=== PATIENT | female | born 1935 | race Two or more races ===

== ENCOUNTER 2016-11-18 19:30 | Inpatient (IN) | payer MEDICAID ==
[~2016-11-18] VITALS: Ht 167.6 cm; Wt 65.8 kg
[~2016-11-18 19:30] MED LIST: ASPIR 8181 MG ORAL; ATORVASTATIN CA20 MG ORAL; DONEPEZIL HCL5 M2 ORAL; GLIMEPIRIDE4 MG ORAL; Ketorolac 30mg Inj IV PRN; LASIX20 M1 ORAL; LOSARTAN POTASS25 MG ORAL; MEGESTROL ACETA20 MG ORAL; METFORMIN HCL1000 M1 ORAL; NAMENDA10 MG ORAL; PANTOPRAZOLE SO40 MG ORAL; PAXIL10 MG ORAL; PLAVIX75 MG ORAL; PRAVASTATIN SOD20 M1 ORAL; VITAMIN D-40400 UNIT ORAL; ZOLPIDEM TARTRA10 MG ORAL
[2016-11-18 21:07] LABS: BASOPHILS % (AUTO) 0.7 % (0.0-2.0); EOSINOPHILS % (AUTO) 0.9 % (0.0-3.0); MEAN CORPUSCULAR HEMOGLOBIN 29.1 PG (27.0-31.0); MEAN CORPUSCULAR HGB CONC 32.4 G/DL (32.0-36.0); MEAN CORPUSCULAR VOLUME 90 FL (80-99); MEAN PLATELET VOLUME 8.9 FL (6.5-10.1); NEUTROPHILS % (AUTO) 76.4 % (45.0-75.0); PLATELET COUNT 154 K/UL (150-450); RED BLOOD COUNT 5.36 M/UL (4.20-5.40); RED CELL DISTRIBUTION WIDTH 13.1 % (11.6-14.8); WHITE BLOOD COUNT 9.9 K/UL (4.8-10.8)
[2016-11-18 21:10] VITALS: BP 105/72
--- NOTE | 2016-11-18 21:25 | Emergency Room Report ---
History of Present Illness General Chief Complaint: Altered Level of Consciousness Source: Patient, Family Member Present Illness HPI Patient is a 81-year-old female presents emergency department today with acute altered mental status. Patient over last few days has been feeling weak with a headache and was by her further evaluation. Patient apparently has also been elevated. History is limited as patient appears be very weak and lethargic. Symptoms are noted to be highly severe.No other modifying factors. No other associated signs and symptoms. No other complaints were noted. Allergies: Coded Allergies: No Known Allergies (Unverified , 08/13/14) UNABLE TO ASSESS (Unverified , 11/18/16) Patient History Past Medical History: DM, HTN Past Surgical History: none Pertinent Family History: none Social History: Denies: alcohol use, drug use, smoking Last Menstrual Period: n/a Reviewed Nursing Documentation: PMH: Agreed, PSxH: Agreed Nursing Documentation-PMH Past Medical History: No History, Except For Hx Cardiac Problems: Yes - hyperlipidemia Hx Hypertension: Yes Hx Diabetes: Yes Hx Cancer: No Hx Gastrointestinal Problems: Yes Hx Cerebrovascular Accident: Yes - 3-4 years ago Hx Alzheimer's Disease: Yes - since 2011 Hx Weakness: Yes Review of Systems All Other Systems: negative except mentioned in HPI Physical Exam Vital Signs Date Time Temp Pulse Resp B/P Pulse Ox O2 Delivery O2 Flow Rate FiO2 11/18/16 19:20 87 16 114/72 97 Sp02 EP Interpretation: reviewed, normal General Appearance: alert, moderate distress Head: atraumatic Eyes: bilateral eye normal inspection ENT: dry mucus membranes Neck: normal inspection, full range of motion, supple, no bony tend Respiratory: normal inspection, lungs clear, normal breath sounds, no respiratory distress, no retraction, no wheezing Cardiovascular #1: regular rate, rhythm, no edema Gastrointestinal: normal inspection, normal bowel sounds, non tender, soft, no guarding, no hernia Genitourinary: no CVA tenderness Musculoskeletal: normal inspection, back normal, normal range of motion Neurologic: normal inspection, alert, responsive, speech normal Psychiatric: depressed affect, anxious Skin: normal inspection, normal color, no rash Medical Decision Making Diagnostic Impression: Primary Impression: Altered level of consciousness ER Course Patient presents emergency department today with acute altered mental status. Differential diagnoses include infectious process electrolyte abnormality CVA just name a few.Given the severity of the patient's presentation I felt this is a highly complex patient. This patient required extensive workup.Patient will likely require admission to the hospital. Admitting hospitalist is Dr. French. Case is discussed with Dr. French for admission evaluation of altered mental status. Labs Test 11/18/16 20:50 White Blood Count 9.9 K/UL (4.8-10.8) Red Blood Count 5.36 M/UL (4.20-5.40) Hemoglobin 15.6 G/DL (12.0-16.0) Hematocrit 48.2 % (37.0-47.0) Mean Corpuscular Volume 90 FL (80-99) Mean Corpuscular Hemoglobin 29.1 PG (27.0-31.0) Mean Corpuscular Hemoglobin Concent 32.4 G/DL (32.0-36.0) Red Cell Distribution Width 13.1 % (11.6-14.8) Platelet Count 154 K/UL (150-450) Mean Platelet Volume 8.9 FL (6.5-10.1) Neutrophils (%) (Auto) 76.4 % (45.0-75.0) Lymphocytes (%) (Auto) 16.0 % (20.0-45.0) Monocytes (%) (Auto) 6.0 % (1.0-10.0) Eosinophils (%) (Auto) 0.9 % (0.0-3.0) Basophils (%) (Auto) 0.7 % (0.0-2.0) EKG Diagnostic Results Rate: normal Rhythm: NSR ST Segments: no acute changes Rhythm Strip Diag. Results EP Interpretation: yes Rate: 86 Rhythm: NSR, no PVC's, no ectopy Chest X-Ray Diagnostic Results Chest X-Ray Diagnostic Results : Chest X-Ray Ordered: Yes # of Views/Limited/Complete: 1 View Indication: Chest Pain EP Interpretation: Yes Interpretation: no consolidation, no effusion, no pneumothorax, no acute cardiopulmonary disease Impression: No acute disease Interpreting ER Provider: Electronically signed by Mag Charles MD Last Vital Signs Date Time Temp Pulse Resp B/P Pulse Ox O2 Delivery O2 Flow Rate FiO2 11/18/16 19:20 87 16 114/72 97 Status: improved Disposition: ADMITTED INPATIENT Condition: Serious Referrals: [facility] [place] ([place]P) MAG CHARLES M.D. Nov 18, 2016 21:25
[2016-11-18 21:31] LABS: TROPONIN I < 0.30 ng/mL (<=0.30)
[2016-11-18 21:34] LABS: ALANINE AMINOTRANSFERASE 9 U/L (3-33); ALBUMIN/GLOBULIN RATIO 1.1 (1.0-2.7); ANION GAP 19 (5-15); ASPARTATE AMINO TRANSFERASE 9 U/L (5-40); CALCIUM 9.2 mg/dL (8.6-10.2); CARBON DIOXIDE 20 mEQ/L (20-30); CHLORIDE 104 mEQ/L (98-107); CREATININE 1.6 mg/dL (0.5-0.9); HEMOLYSIS 2; LIPASE 43 U/L (< 60); POTASSIUM 4.7 mEQ/L (3.4-4.9); SODIUM 143 mEQ/L (135-145); TOTAL PROTEIN 7.3 g/dL (6.6-8.7)
[2016-11-18 21:44] LABS: CKMB 1.8 ng/mL (< 3.8)
[2016-11-18] MEDS ORDERED: Nitroglycerin Subl 0.4mg tab (Bottle Of 25) SL PRN (22:00)
[2016-11-18] MEDS ORDERED: Miralax 17gm pkt ORAL PRN (22:00)
[2016-11-18] MEDS ORDERED: Mylanta II UD 30ml ORAL PRN (22:00)
[2016-11-18] MEDS ORDERED: Morphine Sulfate 2mg/ml Inj IVP PRN (22:00)
[2016-11-18] MEDS ORDERED: DuoNeb 0.5-3(2.5)mg/3ml neb HHN PRN (22:00)
[2016-11-18 23:00] VITALS: BP 102/63
[2016-11-19 01:12] VITALS: BP 129/80
[2016-11-19 03:51] VITALS: BP 108/63
[2016-11-19] MEDS: NovoLOG Insulin Flexpen SUBQ SCH ×4 (07:03→21:59)
[2016-11-19 08:41] VITALS: BP 97/60
[2016-11-19] MEDS: Aspirin EC 81mg tab ORAL SCH (09:00)
--- NOTE | 2016-11-19 09:20 | Diagnostic Imaging Report ---
Indication: Altered mental status, right-sided weakness Technique: spiral acquisitions obtained through the brain. Angled axial and coronal 5 x 5 mm slices were reconstructed. No IV contrast utilized. Radiation dose was minimized using automated exposure control Total dose length product 1357 mGycm. CTDIvol(s) 70 mGy Comparison: 08/13/2014 FINDINGS: No acute hemorrhage or edema. No mass effect or midline shift. There is marked age-related enlargement of the ventricles and extra axial CSF spaces. There is extensive periventricular deep white matter ischemic change. Normal shaffer-white differentiation. Visualized orbits are unremarkable. Visualized sinuses are unremarkable. Intact calvarium. Vertebral calcification is seen in the right parasagittal frontal lobe. The calvarium is intact. The sinuses are clear. The mastoid air cells are hypoplastic. Is no significant interim change IMPRESSION: Chronic and age-related changes. Negative for acute intracranial bleed or mass effect This agrees with the preliminary interpretation provided overnight by Dr. Alanis The CT scanner at [facility] is accredited by the [employer] and the scans are performed using protocols designed to limit radiation exposure to as low as reasonably achievable to attain images of sufficient resolution adequate for diagnostic evaluation
[2016-11-19 09:25] LABS: BASOPHILS % (AUTO) 0.9 % (0.0-2.0); EOSINOPHILS % (AUTO) 2.6 % (0.0-3.0); LYMPHOCYTES % (AUTO) 30.5 % (20.0-45.0); MEAN CORPUSCULAR HEMOGLOBIN 28.5 PG (27.0-31.0); MEAN CORPUSCULAR HGB CONC 31.8 G/DL (32.0-36.0); MEAN CORPUSCULAR VOLUME 90 FL (80-99); MEAN PLATELET VOLUME 8.7 FL (6.5-10.1); MONOCYTES % (AUTO) 6.3 % (1.0-10.0); NEUTROPHILS % (AUTO) 59.8 % (45.0-75.0); PLATELET COUNT 168 K/UL (150-450); RED BLOOD COUNT 4.44 M/UL (4.20-5.40); RED CELL DISTRIBUTION WIDTH 13.3 % (11.6-14.8); WHITE BLOOD COUNT 6.7 K/UL (4.8-10.8)
[2016-11-19 09:42] LABS: HEMOGLOBIN A1C 9.5 % (< 6.0)
[2016-11-19 09:44] LABS: ALANINE AMINOTRANSFERASE 7 U/L (3-33); ALBUMIN/GLOBULIN RATIO 1.1 (1.0-2.7); ANION GAP 13 (5-15); ASPARTATE AMINO TRANSFERASE 8 U/L (5-40); CALCIUM 8.4 mg/dL (8.6-10.2); CARBON DIOXIDE 21 mEQ/L (20-30); CHLORIDE 115 mEQ/L (98-107); CHOLESTEROL 217 mg/dL (< 200); CREATININE 1.1 mg/dL (0.5-0.9); HEMOLYSIS 4; LDL CHOLESTEROL (CALC.) 144 mg/dL (60-99); POTASSIUM 3.8 mEQ/L (3.4-4.9); SODIUM 149 mEQ/L (135-145)
[2016-11-19 09:51] LABS: THYROID STIMULATING HORMONE 0.597 uIU/mL (0.300-4.500)
[2016-11-19] MEDS: Heparin 5000 units/ml inj SUBQ SCH ×2 (09:53→21:57)
--- NOTE | 2016-11-19 11:11 | Diagnostic Imaging Report ---
Indication: COUGH Technique: One view of the chest Comparison: 08/13/2014 Findings: There is atelectasis at the left lung base. Lungs and pleural spaces are otherwise clear. Heart size is normal Impression: Left basilar atelectasis. No acute process otherwise
[2016-11-19 11:49] VITALS: BP 101/65
--- NOTE | 2016-11-19 14:13 | Diagnostic Imaging Report ---
Indication: Abnormal renal function tests Technique: Grayscale and duplex images of the kidneys, retroperitoneum, and bladder were obtained. Comparison:None Findings: Right kidney measures 7.5 cm in length. It is located in the pelvis, demonstrates unusual axis rotation. Left kidney measures 10.4 cm in length. Both kidneys demonstrate normal echogenicity. No hydronephrosis. No focal abnormality. Normal inferior vena cava. Bladder is normal. Impression: Negative for hydronephrosis Ectopic right kidney incidentally noted.
[2016-11-19 15:44] VITALS: BP 117/76
--- NOTE | 2016-11-19 15:55 | History and Physical ---
History of Present Illness General Date patient seen: Nov 19, 2016 Reason for Hospitalization: Altered Level of Consciousness Present Illness HPI 81-year-old female with hx of DM, dementia presented to [facility] [place] emergency department with CC of acute altered mental status. Patient over last few days has been feeling weak. she was found to be in renal failure and had hyperglycemia. She is admitted for further management. Allergies: Coded Allergies: No Known Allergies (Unverified , 08/13/14) UNABLE TO ASSESS (Unverified , 11/18/16) Medication History Scheduled Aspirin* (Aspir 81*), 81 MG ORAL DAILY, (Reported) Aspirin* (Aspir 81*), 81 MG ORAL DAILY, (Reported) Atorvastatin Calcium* (Atorvastatin Calcium*), 20 MG ORAL BEDTIME, (Reported) Cholecalciferol (Vitamin D3) (Vitamin D-400*), 400 UNITS ORAL DAILY, (Reported) Clopidogrel Bisulfate* (Plavix*), 75 MG ORAL DAILY, (Reported) Donepezil Hcl* (Donepezil Hcl*), 5 MG ORAL DAILY, (Reported) Donepezil Hcl* (Donepezil Hcl*), 5 MG ORAL DAILY, (Reported) Furosemide* (Lasix*), 20 MG ORAL DAILY, (Reported) Glimepiride* (Glimepiride*), 4 MG ORAL BIDAC, (Reported) Glimepiride* (Glimepiride*), 4 MG ORAL BEFORE BREAKFAST, (Reported) Losartan Potassium* (Losartan Potassium*), 25 MG ORAL DAILY, (Reported) Megestrol Acetate (Megestrol Acetate), 20 MG ORAL DAILY, (Reported) Memantine Hcl* (Namenda*), 10 MG ORAL DAILY, (Reported) Memantine Hcl* (Namenda*), 10 MG ORAL DAILY, (Reported) Metformin Hcl* (Metformin Hcl*), 1,000 MG ORAL BID, (Reported) Metformin Hcl* (Metformin Hcl*), 1,000 MG ORAL BID, (Reported) Pantoprazole* (Pantoprazole*), 40 MG ORAL DAILY, (Reported) Paroxetine Hcl* (Paxil*), 10 MG ORAL DAILY, (Reported) Paroxetine Hcl* (Paxil*), 10 MG ORAL DAILY, (Reported) Pravastatin Sod* (Pravastatin Sod*), 20 MG ORAL BEDTIME, (Reported) Scheduled PRN Zolpidem Tartrate* (Zolpidem Tartrate*), 10 MG ORAL BEDTIME PRN for Insomnia, ( Reported) Patient History Healthcare decision maker Resuscitation status Full Code Advanced Directive on File No Past Medical/Surgical History Past Medical/Surgical History: (1) Diabetes mellitus Review of Systems All Other Systems: negative except mentioned in HPI ROS Narrative pt is somnolent and can't give any history. Physical Exam General Appearance: WD/WN Lines, tubes and drains: peripheral HEENT: normocephalic, atraumatic Neck: non-tender, normal alignment Respiratory/Chest: chest wall non-tender, lungs clear Breasts: no masses Cardiovascular/Chest: normal peripheral pulses Abdomen: normal bowel sounds Genitourinary/Rectal: normal genital exam Last 24 Hour Vital Signs Date Time Temp Pulse Resp B/P Pulse Ox O2 Delivery O2 Flow Rate FiO2 11/19/16 15:44 97.0 81 18 117/76 96 Room Air 11/19/16 11:49 97.0 58 18 101/65 95 Room Air 11/19/16 08:41 97.0 61 18 97/60 95 Room Air 11/19/16 08:00 60 11/19/16 04:30 70 11/19/16 03:51 97.6 66 18 108/63 96 Nasal Cannula 11/19/16 01:12 96.8 65 18 129/80 98 Room Air 11/18/16 23:39 97.8 60 16 102/63 98 Room Air 11/18/16 23:00 97.8 60 16 102/63 98 Room Air 11/18/16 21:10 97.6 72 26 105/72 97 Room Air 11/18/16 19:20 87 16 114/72 97 Intake and Output 11/18/16 11/19/16 19:00 07:00 Intake Total 1700 ml Balance 1700 ml Intake Oral 0 ml IV Total 1700 ml Other 0 ml Laboratory Tests Test 11/18/16 20:50 11/19/16 09:00 White Blood Count 9.9 K/UL (4.8-10.8) 6.7 K/UL (4.8-10.8) Red Blood Count 5.36 M/UL (4.20-5.40) 4.44 M/UL (4.20-5.40) Hemoglobin 15.6 G/DL (12.0-16.0) 12.7 G/DL (12.0-16.0) Hematocrit 48.2 % (37.0-47.0) H 39.8 % (37.0-47.0) Mean Corpuscular Volume 90 FL (80-99) 90 FL (80-99) Mean Corpuscular Hemoglobin 29.1 PG (27.0-31.0) 28.5 PG (27.0-31.0) Mean Corpuscular Hemoglobin Concent 32.4 G/DL (32.0-36.0) 31.8 G/DL (32.0-36.0) L Red Cell Distribution Width 13.1 % (11.6-14.8) 13.3 % (11.6-14.8) Platelet Count 154 K/UL (150-450) 168 K/UL (150-450) Mean Platelet Volume 8.9 FL (6.5-10.1) 8.7 FL (6.5-10.1) Neutrophils (%) (Auto) 76.4 % (45.0-75.0) H 59.8 % (45.0-75.0) Lymphocytes (%) (Auto) 16.0 % (20.0-45.0) L 30.5 % (20.0-45.0) Monocytes (%) (Auto) 6.0 % (1.0-10.0) 6.3 % (1.0-10.0) Eosinophils (%) (Auto) 0.9 % (0.0-3.0) 2.6 % (0.0-3.0) Basophils (%) (Auto) 0.7 % (0.0-2.0) 0.9 % (0.0-2.0) Prothrombin Time 10.0 SEC (9.30-11.50) Prothromb Time International Ratio 1.0 (0.9-1.1) Activated Partial Thromboplast Time 24 SEC (23-33) Sodium Level 143 mEQ/L (135-145) 149 mEQ/L (135-145) H Potassium Level 4.7 mEQ/L (3.4-4.9) 3.8 mEQ/L (3.4-4.9) Chloride Level 104 mEQ/L (98-107) 115 mEQ/L (98-107) H Carbon Dioxide Level 20 mEQ/L (20-30) 21 mEQ/L (20-30) Anion Gap 19 (5-15) H 13 (5-15) Blood Urea Nitrogen 57 mg/dL (7-23) H 41 mg/dL (7-23) H Creatinine 1.6 mg/dL (0.5-0.9) H 1.1 mg/dL (0.5-0.9) H Estimat Glomerular Filtration Rate mL/min (>60) mL/min (>60) Glucose Level 367 mg/dL (74-106) H 176 mg/dL (74-106) #H Uric Acid 8.5 mg/dL (3.0-7.5) H Calcium Level 9.2 mg/dL (8.6-10.2) 8.4 mg/dL (8.6-10.2) L Total Bilirubin 0.3 mg/dL (0.0-1.2) 0.3 mg/dL (0.0-1.2) Aspartate Amino Transf (AST/SGOT) 9 U/L (5-40) 8 U/L (5-40) Alanine Aminotransferase (ALT/SGPT) 9 U/L (3-33) 7 U/L (3-33) Alkaline Phosphatase 58 U/L (35-104) 46 U/L (35-104) Total Creatine Kinase 39 U/L (26-140) Creatine Kinase MB 1.8 ng/mL (< 3.8) Creatine Kinase MB Relative Index 4.6 Troponin I < 0.30 ng/mL (<=0.30) Pro-B-Type Natriuretic Peptide 531 pg/mL (0-450) H Total Protein 7.3 g/dL (6.6-8.7) 6.0 g/dL (6.6-8.7) L Albumin 3.9 g/dL (3.5-5.2) 3.2 g/dL (3.5-5.2) L Globulin 3.4 g/dL 2.8 g/dL Albumin/Globulin Ratio 1.1 (1.0-2.7) 1.1 (1.0-2.7) Lipase 43 U/L (< 60) Hemoglobin A1c 9.5 % (< 6.0) H Triglycerides Level 183 mg/dL (< 150) H Cholesterol Level 217 mg/dL (< 200) H LDL Cholesterol 144 mg/dL (60-99) H HDL Cholesterol 36 mg/dL (> 60) Cholesterol/HDL Ratio 6.0 (3.3-4.4) H Thyroid Stimulating Hormone (TSH) 0.597 uIU/mL (0.300-4.500) Height (Feet): 5 Height (Inches): 6.00 Weight (Pounds): 145 Medications Current Medications Medications (Trade) Dose Ordered Sig/Ninfa Route PRN Reason Start Time Stop Time Status Last Admin Dose Admin Acetaminophen (Tylenol) 650 mg Q4H PRN ORAL fever 11/18/16 22:00 12/18/16 21:59 Al Hydroxide/Mg Hydroxide (Mylanta II) 30 ml Q6H PRN ORAL dyspepsia 11/18/16 22:00 12/18/16 21:59 Albuterol/ Ipratropium (DuoNeb 0.5-3(2.5)mg/3ml) 3 ml Q4H PRN HHN Shortness of Breath 11/18/16 22:00 11/23/16 21:59 Aspirin (Ecotrin) 81 mg DAILY ORAL 11/19/16 09:00 12/19/16 08:59 Atorvastatin Calcium 20 mg 20 mg BEDTIME ORAL 11/19/16 21:00 12/19/16 20:59 Clonidine HCl (Catapres) 0.1 mg Q4H PRN ORAL sbp more than 160 11/18/16 22:00 12/18/16 21:59 Dextrose (Dextrose 50%) STAT PRN IV Hypoglycemia 11/18/16 22:00 12/18/16 21:59 Heparin Sodium (Porcine) (Heparin 5000 units/ml) 5,000 units EVERY 12 HOURS SUBQ 11/19/16 09:00 12/19/16 08:59 11/19/16 09:53 Insulin Aspart (NovoLOG) BEFORE MEALS AND HS SUBQ 11/19/16 06:30 12/19/16 06:29 11/19/16 07:03 Ketorolac Tromethamine (Toradol 30mg) 30 mg Q6H PRN IV Moderate Pain (Pain Scale 4-6) 11/18/16 07:00 11/23/16 06:59 Morphine Sulfate (Morphine Sulfate) 2 mg Q4H PRN IVP severe pain 7-10 11/18/16 22:00 11/25/16 21:59 Nitroglycerin (Ntg) 0.4 mg Q5M X 3 DOSES PRN SL Prn Chest Pain 11/18/16 22:00 12/18/16 21:59 Ondansetron HCl (Zofran) 4 mg Q6H PRN IVP Nausea & Vomiting 11/18/16 22:00 12/18/16 21:59 Polyethylene Glycol (Miralax) 17 gm HSPRN PRN ORAL Constipation 11/18/16 22:00 12/18/16 21:59 Sodium Chloride (Sodium Chloride 1000ml bag) 1,000 ml @ 100 mls/hr Q10H IVLG 11/18/16 18:23 12/18/16 18:22 11/19/16 12:06 Temazepam (Restoril) 15 mg HSPRN PRN ORAL Insomnia 11/18/16 22:00 11/25/16 21:59 Assessment/Plan Problem List: (1) Acute encephalopathy ICD Codes: G93.40 - Encephalopathy, unspecified SNOMED: 0725266 (2) ATN (acute tubular necrosis) ICD Codes: N17.0 - Acute kidney failure with tubular necrosis SNOMED: 86456979 (3) Diabetes mellitus ICD Codes: E11.9 - Type 2 diabetes mellitus without complications SNOMED: 84268601 (4) Hyperglycemia ICD Codes: R73.9 - Hyperglycemia, unspecified SNOMED: 37676014 Assessment/Plan iv fluids check BS check renal US sliding scale pt ot RHONA BOJORQUEZ Nov 19, 2016 15:55
--- NOTE | 2016-11-19 16:05 | Cardiology Report ---
APPROVED REPORT EKG Measurement Heart [id number] Normal sinus rhythm Left axis deviation Inferior infarct, age undetermined Possible Anterior infarct, age undetermined Abnormal ECG
[2016-11-19 17:55] LABS: APPEARANCE,URINE SLIGHTLY CLOUDY; KETONES,URINE NEGATIVE (NEGATIVE); LEUKOCYTE ESTERASE ,URINE 1+ (NEGATIVE); NITRITE,URINE POSITIVE (NEGATIVE); PH,URINE 5 (4.5-8.0); PROTEIN,URINE 1+ (NEGATIVE); UROBILINOGEN,URINE NORMAL MG/DL (0.0-1.0)
[2016-11-19 18:09] LABS: BACTERIA,URINE MANY /HPF; RBC,URINE 0-2 /HPF (0 - 2); SQUAMOUS EPITHELIAL CELL,UR MANY /LPF (NONE/OCC); WBC,URINE 0-2 /HPF (0 - 2)
[2016-11-19 20:00] VITALS: BP 144/49
[2016-11-19] MEDS ORDERED: Atorvastatin 20mg tab ORAL SCH (21:00)
[2016-11-20] VITALS: BP 116/64
[2016-11-20 04:00] VITALS: BP 105/54
[2016-11-20] MEDS: NovoLOG Insulin Flexpen SUBQ SCH ×4 (06:30→21:06)
[2016-11-20 08:22] VITALS: BP 109/59
[2016-11-20] MEDS: Aspirin EC 81mg tab ORAL SCH (08:58)
[2016-11-20] MEDS: Heparin 5000 units/ml inj SUBQ SCH ×2 (09:00→21:08)
[2016-11-20 12:00] VITALS: BP 102/59
[2016-11-20] MEDS ORDERED: Mylanta II UD 30ml ORAL PRN (15:00)
[2016-11-20] MEDS ORDERED: Nitroglycerin Subl 0.4mg tab (Bottle Of 25) SL PRN (15:30)
[2016-11-20] MEDS ORDERED: DuoNeb 0.5-3(2.5)mg/3ml neb HHN PRN (15:30)
[2016-11-20] MEDS ORDERED: Piperacillin/Tazobactam 3.375 GM in D5W 110 ML IVPB SCH (15:30)
[2016-11-20] MEDS: Piperacillin/Tazobactam 3.375 GM in D5W 110 ML IVPB SCH ×2 (16:06→20:57)
[2016-11-20 16:38] VITALS: BP 125/53
[2016-11-20 20:00] VITALS: BP 100/61
--- NOTE | 2016-11-20 20:39 | Infectious Diseases Prog Note ---
Infectious Disease Consult Infectious Disease Consult Infectious Disease Consult INFECTIOUS DISEASE CONSULTATION DATE OF CONSULTATION: 20Nov2016 CONSULTING PHYSICIAN: Jb Linares M.D., MTM&H, CTropMed Covering for Dr. Dia REFERRING PHYSICIAN: Dr French REASON FOR CONSULTATION: UTI HISTORY OF PRESENT ILLNESS: 81 y/o female w/ PMHx of Dementia, DM, HTN, HLD, prior h/o ischemic CVA, R eye disconjugate gaze, admitted for altered mental status and hyperglcyemica. found to have GNR UTI. daughter denies any recent objective fevers. some foul smelling urine at home. constipated with no BM in almost 10 days. has been complaining of pain to PROM of L knee for the past several weeks. mild AG acidosis on admission, now with closure of gap. had some pyuria on U/a, and now urine cx growing GNR, pending speciation. CXR with L basilar atelectasis, renal u/s negative for pyelonephritis. PAST MEDICAL HISTORY: see above Past Surgical History: see above. ALLERGIES: No known drug allergies. ANTIBIOTICS: Home and hospitalized medications reviewed. SOCIAL HISTORY: lives at home with daughter. FAMILY HISTORY: Noncontributory REVIEW OF SYSTEMS: 11 point ROS negative except for that mentioned in HPI above. PHYSICAL EXAM: VITAL SIGNS: reviewed, afebrile during entire hospitalization. GEN: awake, non toxic appearing HEENT: Mild pale conjunctiva. oral mucosa dry, phaynx w/o exudate or effusion. No icterus. Head normocephalic, neck supple. R eye disconjugate gaze (stable per daughter) NECK: No cervical LAD CHEST: Clear to auscultation bilaterally. HEART: S1 and S2, no murmurs, no rubs. ABDOMEN: soft, non tender, distended, normoactive bowel sounds. EXTREMITIES: No cyanosis, no clubbing, trace edema to ankles. NEUROLOGIC: Awake, alert, no focal neurologic motor deficits. LYMPH: no LAD RECTAL: deferred LABORATORY AND DIAGNOSTIC DATA: WBC today 9. Ucx: GNR. labs reviewed. RADIOLOGY: Procedure: US Renal Indication: Abnormal renal function tests Technique: Grayscale and duplex images of the kidneys, retroperitoneum, and bladder were obtained. Comparison:None Findings: Right kidney measures 7.5 cm in length. It is located in the pelvis, demonstrates unusual axis rotation. Left kidney measures 10.4 cm in length. Both kidneys demonstrate normal echogenicity. No hydronephrosis. No focal abnormality. Normal inferior vena cava. Bladder is normal. Impression: Negative for hydronephrosis Ectopic right kidney incidentally noted. ASSESSMENT AND PLAN ASSESSMENT: 81 y/o female with: 1) UTI c/b AMS, now back to baseline 2) Obstipation 3) subscute L knee pain 4) hyperglycemia, resolving. suboptimal DM control with HGBA1c>9. 5) no leukocytosis, no fevers 6) NKDA PLAN: --continue empiric IV zosyn pending ucx results. likely transition to PO abx to complete 10 day course if available. --monitor ucx results --monitor temp curve --monitor cbc --L knee X ray --miralax Thank you for this consultation. Will continue to follow. Covering for Dr. Dia, please call me with questions, Jb Linares M.D. Nov 20, 2016 20:39
[2016-11-20] MEDS ORDERED: Miralax 17gm pkt ORAL PRN (21:00)
[2016-11-20] MEDS: Atorvastatin 20mg tab ORAL SCH (21:00)
[2016-11-20] MEDS: Miralax 17gm pkt ORAL SCH (22:50)
[2016-11-21] VITALS: BP 97/57
[2016-11-21 04:00] VITALS: BP 107/61
[2016-11-21] MEDS: Piperacillin/Tazobactam 3.375 GM in D5W 110 ML IVPB SCH ×2 (06:08→13:36)
[2016-11-21] MEDS: NovoLOG Insulin Flexpen SUBQ SCH ×4 (06:09→21:37)
--- NOTE | 2016-11-21 07:46 | Pulmonology Progress Note ---
Assessment/Plan Assessment/Plan ASSESSMENT acute on chronic ( Alzheimer dementia) encephalopathy likely 2 to UTI UTI with E coli acute renal failure -resolved DM, out of control hyperglycemia mixed hyperlipidemia obstipation Hx of HTN hx of ischemic CVA Alzheimer dementia risk for silent aspiration PLAN OF CARE MS floor IVF renal failure resolved , possibly due to dehydration and combined nephrotoxic effect of Lasix, ARB and metformin at home ( will stop Renal US no hydro, normal echogenicity bilateral kidneys BS management with SS of insulin [id number] add low dose of Levemir endo eval acute encephalopathy likely due to sepsis , superimposed on chronic advanced Alzheimer [id number] CT head -Chronic and age-related changes. Negative for acute intracranial bleed or mass effect abx ID follows urine cx+E coli O2 , pulmonary toilet prn CXR with L base atelectasis, otherwise no acute process lipid panel with elevated TG and LDL on statin educated daughter on low fat low cholesterol diet and need for statin ( not consistent with statin at home) continue ASA DVT prophylaxis BP stable, no need for anti HTN at this time Clonidine prn check Venous Duplex BLE ( edema LLE) PT/OT ST eval noted diet as per ST recommendations strict aspiration precautions, daughter was educated risk for silent aspiration given hx of CVA and dementia ST recommended VSS, will hold for now bowel regimen case discussed and evaluated by supervising physician Subjective Allergies: Coded Allergies: No Known Allergies (Unverified , 08/13/14) UNABLE TO ASSESS (Unverified , 11/18/16) Subjective no signs of distress labs pending for this am daughter at the bedside BS still high edema LLE Objective Last 24 Hour Vital Signs Date Time Temp Pulse Resp B/P Pulse Ox O2 Delivery O2 Flow Rate FiO2 11/21/16 04:00 97.2 57 20 107/61 97 Room Air 11/21/16 00:00 97.7 62 19 97/57 95 Room Air 11/20/16 20:00 67 20 Room Air 21 11/20/16 20:00 97.8 67 20 100/61 97 Room Air 11/20/16 16:38 97.5 62 18 125/53 95 Room Air 11/20/16 12:00 97.0 64 20 102/59 98 Room Air 11/20/16 08:57 Room Air 11/20/16 08:22 97.0 66 20 109/59 96 Room Air Intake and Output 11/20/16 11/21/16 19:00 07:00 Intake Total 740 ml 610.0 ml Balance 740 ml 610.0 ml Intake Oral 240 ml IV Total 500 ml 610.0 ml # Voids 2 2 General Appearance: no acute distress, other - awake, confused, poorly responsive elderly female HEENT: normocephalic, atraumatic, anicteric, mucous membranes moist, other - strabismus bilateral eyes Respiratory/Chest: chest wall non-tender, normal breath sounds - with moderate air entry Cardiovascular: normal peripheral pulses, normal rate, regular rhythm, no JVD Abdomen: normal bowel sounds, soft, non tender, non distended Genitourinary: normal external genitalia Extremities: other - Left lower extremitye edema, Neurologic/Psychiatric: abnormal gait - bedridden , alert - confused, Musculoskeletal: atrophy - BLE Microbiology Date/Time Source Procedure Growth Status 11/19/16 16:55 Urine,Clean Catch Urine Culture - Preliminary Gram Negative Bacillus 1 Resulted Current Medications Medications (Trade) Dose Ordered Sig/Ninfa Route PRN Reason Start Time Stop Time Status Last Admin Dose Admin Acetaminophen (Tylenol) 650 mg Q4H PRN ORAL fever>100.5 11/20/16 15:00 12/20/16 14:59 Al Hydroxide/Mg Hydroxide (Mylanta II) 30 ml Q6H PRN ORAL dyspepsia 11/20/16 15:00 12/20/16 14:59 Albuterol/ Ipratropium (DuoNeb 0.5-3(2.5)mg/3ml) 3 ml Q4H PRN HHN Shortness of Breath 11/20/16 15:30 11/25/16 15:29 Aspirin (Ecotrin) 81 mg DAILY ORAL 11/21/16 09:00 12/21/16 08:59 Atorvastatin Calcium (Lipitor) 20 mg BEDTIME ORAL 11/20/16 21:00 12/20/16 20:59 11/20/16 21:00 Clonidine HCl (Catapres) 0.1 mg Q4H PRN ORAL sbp more than 160 11/20/16 15:30 12/20/16 15:29 Dextrose (Dextrose 50%) STAT PRN IV Hypoglycemia 11/20/16 15:00 12/20/16 14:59 Heparin Sodium (Porcine) (Heparin 5000 units/ml) 5,000 units EVERY 12 HOURS SUBQ 11/20/16 21:00 12/20/16 20:59 11/20/16 21:08 Insulin Aspart (NovoLOG) BEFORE MEALS AND HS SUBQ 11/20/16 16:30 12/20/16 16:29 11/21/16 06:09 Nitroglycerin (Ntg) 0.4 mg Q5M X 3 DOSES PRN SL Prn Chest Pain 11/20/16 15:30 12/20/16 15:29 Piperacillin Sod/ Tazobactam Sod/ Dextrose (Zosyn/D5W) 110 ml @ 27.5 mls/hr EVERY 8 HOURS IVPB 11/20/16 15:30 11/25/16 15:29 11/21/16 06:08 Polyethylene Glycol (Miralax) 17 gm BEDTIME ORAL 11/20/16 21:00 12/20/16 20:59 11/20/16 22:50 Polyethylene Glycol (Miralax) 17 gm HSPRN PRN ORAL Constipation 11/20/16 21:00 12/20/16 20:59 Sodium Chloride 1,000 ml @ 100 mls/hr Q10H IVLG 11/20/16 15:30 12/20/16 15:29 11/21/16 01:48 Temazepam (Restoril) 15 mg HSPRN PRN ORAL Insomnia 11/20/16 21:00 11/27/16 20:59 Jill Cobb NP (Vanchtein) Nov 21, 2016 07:46
[2016-11-21 08:18] VITALS: BP 117/75
[2016-11-21] MEDS: Aspirin EC 81mg tab ORAL SCH (08:30)
[2016-11-21] MEDS: Heparin 5000 units/ml inj SUBQ SCH ×2 (08:32→21:36)
[2016-11-21 08:47] LABS: BASOPHILS % (AUTO) 1.1 % (0.0-2.0); LYMPHOCYTES % (AUTO) 31.6 % (20.0-45.0); MEAN CORPUSCULAR HEMOGLOBIN 28.1 PG (27.0-31.0); MEAN CORPUSCULAR HGB CONC 31.4 G/DL (32.0-36.0); MEAN CORPUSCULAR VOLUME 89 FL (80-99); MEAN PLATELET VOLUME 8.6 FL (6.5-10.1); MONOCYTES % (AUTO) 4.4 % (1.0-10.0); PLATELET COUNT 169 K/UL (150-450); RED BLOOD COUNT 4.13 M/UL (4.20-5.40); RED CELL DISTRIBUTION WIDTH 13.4 % (11.6-14.8); WHITE BLOOD COUNT 5.1 K/UL (4.8-10.8)
[2016-11-21 09:05] LABS: ANION GAP 13 (5-15); CARBON DIOXIDE 19 mEQ/L (20-30); CHLORIDE 114 mEQ/L (98-107); CREATININE 0.9 mg/dL (0.5-0.9); HEMOLYSIS 13; POTASSIUM 3.8 mEQ/L (3.4-4.9); SODIUM 146 mEQ/L (135-145)
[2016-11-21] MEDS: Levemir Flexpen SUBQ SCH (11:49)
[2016-11-21 12:27] VITALS: BP 115/72
--- NOTE | 2016-11-21 12:30 | Diagnostic Imaging Report ---
APPROVED REPORT CPT Code: 90309 Present Symptoms Shortness of breath RIGHT LEG: Venous imaging reveals a patent deep venous system. There is no evidence of thrombus within the femoral, popliteal or tibial segments. The greater saphenous vein is also within normal limits. Doppler indicates normal spontaneous flow within these segments. LEFT LEG: Venous imaging reveals acute thrombus in the common femoral, superficial femoral, popliteal and calf veins. Greater saphenous vein proximal segment is also occluded. HAKEEM Chase was notified of abnormal results at 1110 hours.
[2016-11-21 15:58] VITALS: BP 118/66
--- NOTE | 2016-11-21 16:16 | Diagnostic Imaging Report ---
Indication: PAIN Technique: 2 views of the left knee Comparison: None Findings:There is irregularity of the medial and lateral joint surfaces, without definite joint space narrowing. There is degenerative remodeling of the medial femoral condyle and medial tibial plateau There are proliferative changes of the distal femur and proximal tibia. There are also degenerative changes of the patellofemoral joint. No suprapatellar effusion. No acute fractures. No dislocations. Impression:Degenerative changes, as described No acute bony trauma
--- NOTE | 2016-11-21 17:48 | Infectious Diseases Prog Note ---
Assessment/Plan Assessment/Plan ASSESSMENT: 81 y/o female with: 1) sensitive E coli UTI c/b AMS, now back to baseline 2) Obstipation 3) subacute L knee pain due to OA 4) hyperglycemia, resolving. suboptimal DM control with HGBA1c>9. 5) no leukocytosis, no fevers 6) NKDA //LLE DVT // PLAN: --d/c zosyn. Start ceftriaxone 1gm IV q24hr, and once ready to discharge can switch to amoxicillin 500mg oral twice daily to complete 10 day course. --monitor temp curve --monitor cbc, chem panel --glycemic control to improve immune system response to infection Subjective Constitutional: Reports: no symptoms Allergies: Coded Allergies: No Known Allergies (Unverified , 08/13/14) UNABLE TO ASSESS (Unverified , 11/18/16) Objective Vital Signs Last 24 Hour Vital Signs Date Time Temp Pulse Resp B/P Pulse Ox O2 Delivery O2 Flow Rate FiO2 11/21/16 15:58 98.4 67 20 118/66 98 Room Air 11/21/16 12:27 98.0 65 20 115/72 98 Room Air 11/21/16 08:18 97.8 61 20 117/75 97 Room Air 11/21/16 07:30 60 20 Room Air 21 11/21/16 04:00 97.2 57 20 107/61 97 Room Air 11/21/16 00:00 97.7 62 19 97/57 95 Room Air 11/20/16 20:00 67 20 Room Air 21 11/20/16 20:00 97.8 67 20 100/61 97 Room Air Height (Feet): 5 Height (Inches): 6.00 Weight (Pounds): 145 Objective Exam VITAL SIGNS: reviewed, afebrile during entire hospitalization. GEN: awake, non toxic appearing HEENT: Mild pale conjunctiva. oral mucosa dry, phaynx w/o exudate or effusion. No icterus. Head normocephalic, neck supple. R eye disconjugate gaze (stable per daughter) NECK: No cervical LAD CHEST: Clear to auscultation bilaterally. HEART: S1 and S2, no murmurs, no rubs. ABDOMEN: soft, non tender, distended, normoactive bowel sounds. EXTREMITIES: No cyanosis, no clubbing, trace edema to ankles greater in LLE NEUROLOGIC: Awake, alert, no focal neurologic motor deficits. LYMPH: no LAD RECTAL: deferred Microbiology Date/Time Source Procedure Growth Status 11/19/16 16:55 Urine,Clean Catch Urine Culture - Final Escherichia Coli Complete Laboratory Tests Test 11/21/16 08:30 White Blood Count 5.1 K/UL (4.8-10.8) Red Blood Count 4.13 M/UL (4.20-5.40) L Hemoglobin 11.6 G/DL (12.0-16.0) L Hematocrit 37.0 % (37.0-47.0) Mean Corpuscular Volume 89 FL (80-99) Mean Corpuscular Hemoglobin 28.1 PG (27.0-31.0) Mean Corpuscular Hemoglobin Concent 31.4 G/DL (32.0-36.0) L Red Cell Distribution Width 13.4 % (11.6-14.8) Platelet Count 169 K/UL (150-450) Mean Platelet Volume 8.6 FL (6.5-10.1) Neutrophils (%) (Auto) 61.0 % (45.0-75.0) Lymphocytes (%) (Auto) 31.6 % (20.0-45.0) Monocytes (%) (Auto) 4.4 % (1.0-10.0) Eosinophils (%) (Auto) 2.0 % (0.0-3.0) Basophils (%) (Auto) 1.1 % (0.0-2.0) Sodium Level 146 mEQ/L (135-145) H Potassium Level 3.8 mEQ/L (3.4-4.9) Chloride Level 114 mEQ/L (98-107) H Carbon Dioxide Level 19 mEQ/L (20-30) L Anion Gap 13 (5-15) Blood Urea Nitrogen 19 mg/dL (7-23) Creatinine 0.9 mg/dL (0.5-0.9) Estimat Glomerular Filtration Rate mL/min (>60) Glucose Level 169 mg/dL (74-106) H Calcium Level 8.0 mg/dL (8.6-10.2) L Current Medications Medications (Trade) Dose Ordered Sig/Ninfa Route PRN Reason Start Time Stop Time Status Last Admin Dose Admin Acetaminophen (Tylenol) 650 mg Q4H PRN ORAL fever>100.5 8/3/17 15:00 12/20/16 14:59 Al Hydroxide/Mg Hydroxide (Mylanta II) 30 ml Q6H PRN ORAL dyspepsia 11/20/16 15:00 12/20/16 14:59 Albuterol/ Ipratropium (DuoNeb 0.5-3(2.5)mg/3ml) 3 ml Q4H PRN HHN Shortness of Breath 11/20/16 15:30 11/25/16 15:29 Aspirin (Ecotrin) 81 mg DAILY ORAL 11/21/16 09:00 12/21/16 08:59 11/21/16 08:30 Atorvastatin Calcium (Lipitor) 20 mg BEDTIME ORAL 11/20/16 21:00 12/20/16 20:59 11/20/16 21:00 Clonidine HCl (Catapres) 0.1 mg Q4H PRN ORAL sbp more than 160 11/20/16 15:30 12/20/16 15:29 Dextrose (Dextrose 50%) STAT PRN IV Hypoglycemia 11/20/16 15:00 12/20/16 14:59 Heparin Sodium (Porcine) (Heparin 5000 units/ml) 5,000 units EVERY 12 HOURS SUBQ 11/20/16 21:00 12/20/16 20:59 11/20/16 21:08 Insulin Aspart (NovoLOG) BEFORE MEALS AND HS SUBQ 11/20/16 16:30 12/20/16 16:29 11/21/16 16:57 Insulin Detemir (Levemir) 5 units DAILY SUBQ 11/21/16 10:00 12/21/16 09:59 11/21/16 11:49 Nitroglycerin (Ntg) 0.4 mg Q5M X 3 DOSES PRN SL Prn Chest Pain 11/20/16 15:30 12/20/16 15:29 Piperacillin Sod/ Tazobactam Sod/ Dextrose (Zosyn/D5W) 110 ml @ 27.5 mls/hr EVERY 8 HOURS IVPB 11/20/16 15:30 11/25/16 15:29 11/21/16 13:36 Polyethylene Glycol (Miralax) 17 gm BEDTIME ORAL 11/20/16 21:00 12/20/16 20:59 11/20/16 22:50 Polyethylene Glycol (Miralax) 17 gm HSPRN PRN ORAL Constipation 11/20/16 21:00 12/20/16 20:59 Sodium Chloride 1,000 ml @ 100 mls/hr Q10H IVLG 11/20/16 15:30 12/20/16 15:29 11/21/16 11:51 Temazepam (Restoril) 15 mg HSPRN PRN ORAL Insomnia 11/20/16 21:00 11/27/16 20:59 Jb Linares M.D. Nov 21, 2016 17:48
[2016-11-21 20:00] VITALS: BP 116/80
[2016-11-21] MEDS: Miralax 17gm pkt ORAL SCH ×2 (21:00→21:35)
[2016-11-21] MEDS ORDERED: cefTRIAXone 1 GM in D5W 55 ML IVPB SCH (21:00)
[2016-11-21] MEDS: Atorvastatin 20mg tab ORAL SCH (21:34)
[2016-11-22] VITALS: BP 120/98
[2016-11-22] MEDS: NovoLOG Insulin Flexpen SUBQ SCH ×2 (06:23→14:00)
[2016-11-22 08:26] VITALS: BP 120/71
[2016-11-22] MEDS: Heparin 5000 units/ml inj SUBQ SCH (08:56)
[2016-11-22] MEDS: Aspirin EC 81mg tab ORAL SCH (08:56)
[2016-11-22] MEDS: Levemir Flexpen SUBQ SCH (08:59)
[2016-11-22] MEDS ORDERED: Miralax 17gm pkt ORAL SCH (09:00)
[2016-11-22 09:12] LABS: BASOPHILS % (AUTO) 0.5 % (0.0-2.0); LYMPHOCYTES % (AUTO) 31.5 % (20.0-45.0); MEAN CORPUSCULAR HEMOGLOBIN 28.4 PG (27.0-31.0); MEAN CORPUSCULAR HGB CONC 31.4 G/DL (32.0-36.0); MEAN CORPUSCULAR VOLUME 91 FL (80-99); MEAN PLATELET VOLUME 8.5 FL (6.5-10.1); MONOCYTES % (AUTO) 6.8 % (1.0-10.0); NEUTROPHILS % (AUTO) 59.1 % (45.0-75.0); PLATELET COUNT 218 K/UL (150-450); RED BLOOD COUNT 4.23 M/UL (4.20-5.40); RED CELL DISTRIBUTION WIDTH 13.9 % (11.6-14.8); WHITE BLOOD COUNT 4.9 K/UL (4.8-10.8)
[2016-11-22] MEDS ORDERED: LEVEMIR FL100 UNIT/1 SUBQ (09:21)
[2016-11-22] MEDS ORDERED: NOVOLOG100 UNITS1 SUBQ (09:21)
[2016-11-22 09:26] LABS: ANION GAP 10 (5-15); CARBON DIOXIDE 23 mEQ/L (20-30); CHLORIDE 113 mEQ/L (98-107); CREATININE 0.9 mg/dL (0.5-0.9); HEMOLYSIS 3; POTASSIUM 3.7 mEQ/L (3.4-4.9); SODIUM 146 mEQ/L (135-145)
--- NOTE | 2016-11-22 09:54 | Pulmonology Progress Note ---
Assessment/Plan Assessment/Plan ASSESSMENT acute on chronic ( Alzheimer dementia) encephalopathy likely 2 to UTI UTI with E coli acute renal failure -resolved DM, out of control hyperglycemia acute DVT LLE SFV mixed hyperlipidemia obstipation Hx of HTN hx of ischemic CVA end stage Alzheimer dementia risk for silent aspiration PLAN OF CARE MS floor IVF renal failure resolved , possibly due to dehydration and combined nephrotoxic effect of Lasix, ARB and metformin at home ( will stop Renal US no hydro, normal echogenicity bilateral kidneys BS management with SS of insulin StV9b-5.5 added low dose of Levemir endo eval acute encephalopathy likely due to sepsis , superimposed on chronic advanced end stage Alzheimer [id number] CT head -Chronic and age-related changes. Negative for acute intracranial bleed or mass effect abx ID follows urine cx+E coli O2 , pulmonary toilet prn CXR with L base atelectasis, otherwise no acute process venous Dupelx BLE with acute DVT LLE SFV started on Lovenox however family decided on palliative care and opted for hospice services lipid panel with elevated TG and LDL on statin educated daughter on low fat low cholesterol diet and need for statin ( not consistent with statin at home) continue ASA DVT prophylaxis BP stable, no need for anti HTN at this time Clonidine prn PT/OT ST eval noted diet as per ST recommendations strict aspiration precautions, daughter was educated risk for silent aspiration given hx of CVA and dementia ST recommended VSS, will hold for now bowel regimen hospice eval done dc today home with hospice services case discussed and evaluated by supervising physician Subjective Allergies: Coded Allergies: No Known Allergies (Unverified , 08/13/14) UNABLE TO ASSESS (Unverified , 11/18/16) Subjective no signs of distress labs pending for this am daughter at the bedside BS still high edema LLE Objective Last 24 Hour Vital Signs Date Time Temp Pulse Resp B/P Pulse Ox O2 Delivery O2 Flow Rate FiO2 11/22/16 08:26 97.0 57 20 120/71 98 Room Air 11/22/16 07:30 60 20 Room Air 11/22/16 00:00 97.7 62 18 120/98 98 Room Air 11/21/16 20:00 97.7 66 20 116/80 98 Room Air 11/21/16 19:30 68 20 Room Air 21 11/21/16 15:58 98.4 67 20 118/66 98 Room Air 11/21/16 12:27 98.0 65 20 115/72 98 Room Air Intake and Output 11/21/16 11/22/16 19:00 07:00 Intake Total 1292.5 ml 1205 ml Balance 1292.5 ml 1205 ml Intake Oral 600 ml IV Total 692.5 ml 1205 ml # Voids 4 3 # Bowel Movements 1 1 Objective General Appearance: no acute distress, awake, confused, poorly responsive elderly female HEENT: normocephalic, atraumatic, anicteric, mucous membranes moist, strabismus bilateral eyes Respiratory/Chest: chest wall non-tender, normal breath sounds - with moderate air entry Cardiovascular: normal peripheral pulses, normal rate, regular rhythm, no JVD Abdomen: normal bowel sounds, soft, non tender, non distended Genitourinary: normal external genitalia Extremities: other - Left lower extremities edema, Neurologic/Psychiatric: abnormal gait - bedridden , alert - confused, Musculoskeletal: atrophy - BLE Microbiology Date/Time Source Procedure Growth Status 11/19/16 16:55 Urine,Clean Catch Urine Culture - Final Escherichia Coli Complete Laboratory Tests 11/22/16 08:34: White Blood Count 4.9, Red Blood Count 4.23, Hemoglobin 12.0, Hematocrit 38.3, Mean Corpuscular Volume 91, Mean Corpuscular Hemoglobin 28.4, Mean Corpuscular Hemoglobin Concent 31.4L, Red Cell Distribution Width 13.9, Platelet Count 218, Mean Platelet Volume 8.5, Neutrophils (%) (Auto) 59.1, Lymphocytes (%) (Auto) 31.5, Monocytes (%) (Auto) 6.8, Eosinophils (%) (Auto) 2.0, Basophils (%) (Auto ) 0.5, Sodium Level 146H, Potassium Level 3.7, Chloride Level 113H, Carbon Dioxide Level 23, Anion Gap 10, Blood Urea Nitrogen 17, Creatinine 0.9, Estimat Glomerular Filtration Rate , Glucose Level 197H, Calcium Level 8.0L Current Medications Medications (Trade) Dose Ordered Sig/Ninfa Route PRN Reason Start Time Stop Time Status Last Admin Dose Admin Acetaminophen (Tylenol) 650 mg Q4H PRN ORAL fever>100.5 11/20/16 15:00 12/20/16 14:59 Al Hydroxide/Mg Hydroxide (Mylanta II) 30 ml Q6H PRN ORAL dyspepsia 11/20/16 15:00 12/20/16 14:59 Albuterol/ Ipratropium (DuoNeb 0.5-3(2.5)mg/3ml) 3 ml Q4H PRN HHN Shortness of Breath 11/20/16 15:30 11/25/16 15:29 Aspirin (Ecotrin) 81 mg DAILY ORAL 11/21/16 09:00 12/21/16 08:59 11/22/16 08:56 Atorvastatin Calcium (Lipitor) 20 mg BEDTIME ORAL 11/20/16 21:00 12/20/16 20:59 11/21/16 21:34 Ceftriaxone Sodium/Dextrose (Rocephin/D5W) 55 ml @ 110 mls/hr Q24H IVPB 11/21/16 21:00 11/29/16 20:59 11/21/16 21:34 Clonidine HCl (Catapres) 0.1 mg Q4H PRN ORAL sbp more than 160 11/20/16 15:30 12/20/16 15:29 Dextrose (Dextrose 50%) STAT PRN IV Hypoglycemia 11/20/16 15:00 12/20/16 14:59 Enoxaparin Sodium (Lovenox) 70 mg EVERY 12 HOURS SUBQ 11/22/16 09:30 12/22/16 09:29 UNV Heparin Sodium (Porcine) (Heparin 5000 units/ml) 5,000 units EVERY 12 HOURS SUBQ 11/20/16 21:00 12/20/16 20:59 11/22/16 08:56 Insulin Aspart (NovoLOG) BEFORE MEALS AND HS SUBQ 11/20/16 16:30 12/20/16 16:29 11/22/16 06:23 Insulin Detemir 5 units 5 units DAILY SUBQ 11/21/16 10:00 12/21/16 09:59 11/22/16 08:59 Nitroglycerin (Ntg) 0.4 mg Q5M X 3 DOSES PRN SL Prn Chest Pain 11/20/16 15:30 12/20/16 15:29 Polyethylene Glycol (Miralax) 17 gm DAILY ORAL 11/22/16 09:00 12/22/16 08:59 11/22/16 08:55 Polyethylene Glycol (Miralax) 17 gm HSPRN PRN ORAL Constipation 11/20/16 21:00 12/20/16 20:59 Sodium Chloride (Sodium Chloride 1000ml bag) 1,000 ml @ 100 mls/hr Q10H IVLG 11/20/16 15:30 12/20/16 15:29 11/22/16 08:54 Temazepam (Restoril) 15 mg HSPRN PRN ORAL Insomnia 11/20/16 21:00 11/27/16 20:59 Jill Cobb NP ([place]) Nov 22, 2016 09:54
[2016-11-22] MEDS ORDERED: Enoxaparin Sodium 300mg/3ml vial SUBQ SCH (11:00)
[2016-11-22 11:48] VITALS: BP 96/59
[2016-11-22 16:07] VITALS: BP 115/64
--- NOTE | 2016-11-22 17:34 | Infectious Diseases Prog Note ---
Assessment/Plan Assessment/Plan ASSESSMENT: 81 y/o female with: 1) sensitive E coli UTI c/b AMS, now back to baseline 2) Obstipation 3) subacute L knee pain due to OA 4) hyperglycemia, resolving. suboptimal DM control with HGBA1c>9. 5) no leukocytosis, no fevers 6) NKDA //LLE DVT // PLAN: --continue Ceftriaxone 1gm IV q24h4 D#1 (day #2 of abx). once ready to discharge can switch to amoxicillin 500mg oral twice daily to complete 10 day course. --(11/21/16) s/p zosyn D#1. --monitor temp curve --monitor cbc, chem panel --glycemic control to improve immune system response to infection Subjective Constitutional: Reports: no symptoms Gastrointestinal/Abdominal: Reports: no symptoms Genitourinary: Reports: no symptoms Allergies: Coded Allergies: No Known Allergies (Unverified , 08/13/14) UNABLE TO ASSESS (Unverified , 11/18/16) Objective Vital Signs Last 24 Hour Vital Signs Date Time Temp Pulse Resp B/P Pulse Ox O2 Delivery O2 Flow Rate FiO2 11/22/16 16:07 98.0 64 20 115/64 98 Room Air 11/22/16 11:48 97.6 66 20 96/59 98 Room Air 11/22/16 08:26 97.0 57 20 120/71 98 Room Air 11/22/16 07:30 60 20 Room Air 21 11/22/16 00:00 97.7 62 18 120/98 98 Room Air 11/21/16 20:00 97.7 66 20 116/80 98 Room Air 11/21/16 19:30 68 20 Room Air 21 Height (Feet): 5 Height (Inches): 6.00 Weight (Pounds): 145 Objective Exam VITAL SIGNS: reviewed, afebrile during entire hospitalization. GEN: awake, non toxic appearing HEENT: Mild pale conjunctiva. oral mucosa dry, phaynx w/o exudate or effusion. No icterus. Head normocephalic, neck supple. R eye disconjugate gaze (stable per daughter) NECK: No cervical LAD CHEST: Clear to auscultation bilaterally. HEART: S1 and S2, no murmurs, no rubs. ABDOMEN: soft, non tender, distended, normoactive bowel sounds. EXTREMITIES: No cyanosis, no clubbing, trace edema to ankles greater in LLE NEUROLOGIC: Awake, alert, no focal neurologic motor deficits. LYMPH: no LAD RECTAL: deferred Laboratory Tests Test 11/22/16 08:34 White Blood Count 4.9 K/UL (4.8-10.8) Red Blood Count 4.23 M/UL (4.20-5.40) Hemoglobin 12.0 G/DL (12.0-16.0) Hematocrit 38.3 % (37.0-47.0) Mean Corpuscular Volume 91 FL (80-99) Mean Corpuscular Hemoglobin 28.4 PG (27.0-31.0) Mean Corpuscular Hemoglobin Concent 31.4 G/DL (32.0-36.0) L Red Cell Distribution Width 13.9 % (11.6-14.8) Platelet Count 218 K/UL (150-450) Mean Platelet Volume 8.5 FL (6.5-10.1) Neutrophils (%) (Auto) 59.1 % (45.0-75.0) Lymphocytes (%) (Auto) 31.5 % (20.0-45.0) Monocytes (%) (Auto) 6.8 % (1.0-10.0) Eosinophils (%) (Auto) 2.0 % (0.0-3.0) Basophils (%) (Auto) 0.5 % (0.0-2.0) Sodium Level 146 mEQ/L (135-145) H Potassium Level 3.7 mEQ/L (3.4-4.9) Chloride Level 113 mEQ/L (98-107) H Carbon Dioxide Level 23 mEQ/L (20-30) Anion Gap 10 (5-15) Blood Urea Nitrogen 17 mg/dL (7-23) Creatinine 0.9 mg/dL (0.5-0.9) Estimat Glomerular Filtration Rate mL/min (>60) Glucose Level 197 mg/dL (74-106) H Calcium Level 8.0 mg/dL (8.6-10.2) L Current Medications Medications (Trade) Dose Ordered Sig/Ninfa Route PRN Reason Start Time Stop Time Status Last Admin Dose Admin Acetaminophen (Tylenol) 650 mg Q4H PRN ORAL fever>100.5 11/20/16 15:00 9/2/17 14:59 Al Hydroxide/Mg Hydroxide (Mylanta II) 30 ml Q6H PRN ORAL dyspepsia 11/20/16 15:00 12/20/16 14:59 Albuterol/ Ipratropium (DuoNeb 0.5-3(2.5)mg/3ml) 3 ml Q4H PRN HHN Shortness of Breath 11/20/16 15:30 11/25/16 15:29 Aspirin (Ecotrin) 81 mg DAILY ORAL 11/21/16 09:00 12/21/16 08:59 11/22/16 08:56 Atorvastatin Calcium (Lipitor) 20 mg BEDTIME ORAL 11/20/16 21:00 12/20/16 20:59 11/21/16 21:34 Ceftriaxone Sodium/Dextrose (Rocephin/D5W) 55 ml @ 110 mls/hr Q24H IVPB 11/21/16 21:00 11/29/16 20:59 11/21/16 21:34 Clonidine HCl (Catapres) 0.1 mg Q4H PRN ORAL sbp more than 160 11/20/16 15:30 12/20/16 15:29 Dextrose (Dextrose 50%) STAT PRN IV Hypoglycemia 11/20/16 15:00 12/20/16 14:59 Enoxaparin Sodium (Lovenox) 70 mg EVERY 12 HOURS SUBQ 11/22/16 11:00 12/22/16 10:59 11/22/16 11:31 Insulin Aspart (NovoLOG) BEFORE MEALS AND HS SUBQ 11/20/16 16:30 12/20/16 16:29 11/22/16 14:00 Insulin Detemir 5 units 5 units DAILY SUBQ 11/21/16 10:00 12/21/16 09:59 11/22/16 08:59 Nitroglycerin (Ntg) 0.4 mg Q5M X 3 DOSES PRN SL Prn Chest Pain 11/20/16 15:30 12/20/16 15:29 Polyethylene Glycol (Miralax) 17 gm DAILY ORAL 11/22/16 09:00 12/22/16 08:59 11/22/16 08:55 Polyethylene Glycol (Miralax) 17 gm HSPRN PRN ORAL Constipation 11/20/16 21:00 12/20/16 20:59 Sodium Chloride (Sodium Chloride 1000ml bag) 1,000 ml @ 100 mls/hr Q10H IVLG 11/20/16 15:30 12/20/16 15:29 11/22/16 08:54 Temazepam (Restoril) 15 mg HSPRN PRN ORAL Insomnia 11/20/16 21:00 11/27/16 20:59 Jb Linares M.D. Nov 22, 2016 17:34
[2016-11-22] MEDS ORDERED: Tubing IV Secondary IV ONE (17:44)
[2016-11-26] MEDS ORDERED: AMOXICILLIN500 MG ORAL (08:13)
--- NOTE | 2016-11-26 08:20 | Discharge Summary ---
Discharge Summary Hospital Course Date of Admission Nov 18, 2016 at 21:05 Date of Discharge Nov 22, 2016 at 17:45 Admitting Diagnosis altered mental status HPI Taylor To is a 81 year old female who was admitted on Nov 18, 2016 at 21: 05 for Altered Mental Status Hospital Course dc summary #[id number] Discharge Medications New Medications: Amoxicillin* (Amoxil*) 500 Mg Capsule 500 MG ORAL BID, #16 CAP Insulin Aspart (Novolog Flexpen) 100 Unit/1 Ml Insuln.pen 5 UNITS SUBQ BEFORE MEALS AND HS for 28 Days, #30 EA Insulin Detemir (Levemir Flexpen) 100 Unit/1 Ml Insuln.pen 5 UNITS SUBQ DAILY for 30 Days, EA Discharge Condition Upon Discharge: stable Discharge Disposition Patient was discharged to Home with Hospice (50) Discharge Diagnoses: Reza ([place])Jill NP Nov 26, 2016 08:20
--- NOTE | 2016-11-26 23:45 | Discharge Summary 2 SIG ---
DATE OF ADMISSION: 11/18/2016 DATE OF DISCHARGE: 11/22/2016 REASON FOR ADMISSION: 81 years old female with end-stage Alzheimer disease, history of CVA and diabetes, presented to the emergency room with worsening mental status and generalized weakness. Workup in the emergency room revealed no leukocytosis. Stable vital signs. Chest x-ray revealed no acute cardiopulmonary disease. CT of the head revealed no acute intracranial pathology, but chronic age related changes. BUN - 57, creatinine -1.6, blood sugar was-367. The patient was admitted for further management. ADMITTING DIAGNOSES: 1. Acute encephalopathy. 2. Acute renal failure, possibly acute tubular necrosis. 3. Hyperglycemia. 4. Diabetes mellitus. HOSPITAL STAY: The patient was admitted to Med/Surg floor. The patient started on the IV fluids. Blood sugar was managed with sliding scale of insulin and Levemir. Hemoglobin A1c- 9.5, not at goal, dose of insulin titrated and optimized. Blood sugar was stable prior to discharge. The patient was on regimen of short-acting pre-meal insulin and long-acting Levemir along with sliding scale of insulin as needed. Renal failure resolved, likely combination of due to dehydration and combined nephrotoxic effect of Lasix, ARB, and metformin, which the patient was taking at home. Renal ultrasound revealed no hydronephrosis, normal echogenicity of bilateral kidneys. As mentioned above, CT of the head was negative for acute intracranial bleeding or mass effect, but revealed chronic age-related changes. Acute encephalopathy likely was due to sepsis superimposed on chronic advanced end-stage Alzheimer dementia. Urinalysis revealed urinary tract infection, and urine culture grew E. coli. Infectious Disease consult requested. Infectious Disease specialist closely followed. The patient was on IV antibiotic for two days and switch on oral antibiotics upon discharge to complete total of 10 days course of antibiotics. Venous duplex of bilateral lower extremities revealed acute DVT left lower extremity superficial femoral vein. The patient started on Lovenox to bridge with Coumadin to therapeutic INR. However, family decided on palliative care and comfort measures and opted for hospice services. Lipid panel revealed elevated triglycerides and LDL. The patient already on the statin. Daughter was educated on low-fat and low-cholesterol diet. Aspirin was continued. Blood pressure was stable, no need for antihypertensive medication at that time. PT/OT evaluation was done. The patient not able to participate with activities. Swallow evaluation done at the bedside. Diet restarted as per ST recommendation with strict aspiration precaution. Daughter was educated on aspiration precaution and one-to-one feeding. The patient has a risk for silent aspiration, given history of CVA and advanced dementia. Speech therapist recommended a video swallow study, but it was hold since family decided on comfort measure. Bowel regimen instituted. Hospice evaluation was done. The patient was stable for discharge home with the hospice services. DISCHARGE DIAGNOSES: 1. Acute on chronic encephalopathy, superimposed on chronic advanced end-stage Alzheimer dementia. 2. Urinary tract infection with Escherichia coli. 3. Acute renal failure, resolved. 4. Diabetes mellitus, out of control. 5. Hyperglycemia. 6. Acute deep vein thrombosis, left lower extremity, superficial femoral vein. 7. Mixed hyperlipidemia. 8. Obstipation. 9. History of hypertension. 10. History of ischemic cerebrovascular accident. 11. End-stage Alzheimer dementia. 12. Risk for silent aspiration. DISCHARGE MEDICATIONS: See medication reconciliation list. DISCHARGE INSTRUCTIONS: The patient was discharged home with hospice services. Katelynn French M.D. Jill Cobb ([facility] NJessie DR: SANJU JOB#: [id number] CC: ISHAAN
== END 2016-11-22 17:45 | disposition hospice, home (50) | DRG 463 ==
LOC: EDBD 19:30 → EMR 20:01 → 2E 21:05 → EDBEDREQ 21:41 → 2E 11-19 08:32 → 4E 11-20 15:01
DX: N39.0 Urinary tract infection, site not specified (principal); N17.0 Acute kidney failure with tubular necrosis; G93.40 Encephalopathy, unspecified; I82.412 Acute embolism and thrombosis of left femoral vein; E11.65 Type 2 diabetes mellitus with hyperglycemia; B96.20 Unspecified Escherichia coli [E. coli] as the cause of diseases classified elsewhere; G30.9 Alzheimer's disease, unspecified; F02.80 Dementia in other diseases classified elsewhere, unspecified severity, without behavioral disturbance, psychotic disturbance, mood disturbance, and anxiety; K59.00 Constipation, unspecified; I10 Essential (primary) hypertension; E78.2 Mixed hyperlipidemia; Z51.5 Encounter for palliative care; M17.12 Unilateral primary osteoarthritis, left knee; Z86.73 Personal history of transient ischemic attack (TIA), and cerebral infarction without residual deficits
CPT/HCPCS: 36415; 70450; 71010; 76775; 80048; 80053; 80061; 81001; 82550; 82553; 82962; 83036; 83690; 83880; 84443; 84484; 84550; 85025; 85610; 85730; 87086; 87181; 93005; 93970; 94664; J1815; S5561

== ENCOUNTER 2016-12-23 12:41 | Inpatient (IN) | payer MEDICAID ==
[~2016-12-23] VITALS: Ht 154.9 cm; Wt 49.9 kg
[~2016-12-23 12:41] MED LIST changes: +AMOXICILLIN500 MG ORAL; -Ketorolac 30mg Inj IV PRN; +LEVEMIR FL100 UNIT/1 SUBQ; +NOVOLOG100 UNITS1 SUBQ
[2016-12-23 13:54] LABS: BASOPHILS % (AUTO) 0.9 % (0.0-2.0); EOSINOPHILS % (AUTO) 0.1 % (0.0-3.0); LYMPHOCYTES % (AUTO) 18.4 % (20.0-45.0); MEAN CORPUSCULAR HEMOGLOBIN 29.3 PG (27.0-31.0); MEAN CORPUSCULAR HGB CONC 32.6 G/DL (32.0-36.0); MEAN CORPUSCULAR VOLUME 90 FL (80-99); MEAN PLATELET VOLUME 8.1 FL (6.5-10.1); MONOCYTES % (AUTO) 5.1 % (1.0-10.0); NEUTROPHILS % (AUTO) 75.6 % (45.0-75.0); PLATELET COUNT 164 K/UL (150-450); RED BLOOD COUNT 4.98 M/UL (4.20-5.40); WHITE BLOOD COUNT 10.8 K/UL (4.8-10.8)
[2016-12-23 14:03] LABS: REFLEX LACTIC ACID YES OR NO YES
[2016-12-23 14:29] VITALS: BP 108/72
[2016-12-23 14:30] LABS: APPEARANCE,URINE TURBID; KETONES,URINE NEGATIVE (NEGATIVE); LEUKOCYTE ESTERASE ,URINE 1+ (NEGATIVE); NITRITE,URINE NEGATIVE (NEGATIVE); PH,URINE 5 (4.5-8.0); PROTEIN,URINE 1+ (NEGATIVE); UROBILINOGEN,URINE NORMAL MG/DL (0.0-1.0)
[2016-12-23] MEDS ORDERED: Acetaminophen 650 MG SUPP RECTAL ONE (14:30)
--- NOTE | 2016-12-23 14:36 | Diagnostic Imaging Report ---
Indication: Altered mental status Technique: Contiguous 5 mm thick transaxial imaging of the head obtained in a Siemens Sensation [address] scanner. Soft tissue and bone windows generated. Total Dose length Product (DLP): [address] Dose Index Volume (CTDIvol): 70.38, 0.15 mGy Comparison: none Findings: There is moderate prominence of the ventricles, basal cisterns, and cerebral sulci consistent with atrophy. There is a central predominance with dilatation of the lateral ventricles disproportionate to the degree of atrophy present. One should consider the possibility of communicating hydrocephalus and normal pressure hydrocephalus. Moderate, nonspecific, white matter hypoattenuation is noted throughout the brain consistent with chronic small vessel disease. There is no midline shift, edema, acute hemorrhage, mass effect, or abnormal extra-axial fluid collections. Bones and extra osseous soft tissues are unremarkable. Impression: No acute intracranial bleed, mass effect or edema. Moderate atrophy of the brain with disproportionate ventriculomegaly. One should consider the possibility of communicating hydrocephalus. Evidence of chronic small vessel disease involving white matter tracts. The CT scanner at [facility] is accredited by the [employer] and the scans are performed using dose optimization techniques as appropriate to a performed exam including Automatic Exposure control.
--- NOTE | 2016-12-23 14:44 | Diagnostic Imaging Report ---
Indication: Dyspnea Comparison: None A single view chest radiograph was obtained. Findings: Bones are osteopenic. Lungs are clear. Heart size is normal. Aorta is mildly ectatic. Impression: No acute disease
[2016-12-23 14:46] LABS: BACTERIA,URINE FEW /HPF; SQUAMOUS EPITHELIAL CELL,UR MODERATE /LPF (NONE/OCC)
[2016-12-23 14:50] LABS: ALANINE AMINOTRANSFERASE 19 U/L (3-33); ALBUMIN/GLOBULIN RATIO 0.9 (1.0-2.7); ANION GAP 23 (5-15); ASPARTATE AMINO TRANSFERASE 19 U/L (5-40); CALCIUM 9.2 mg/dL (8.6-10.2); CARBON DIOXIDE 17 mEQ/L (20-30); CHLORIDE 111 mEQ/L (98-107); HEMOLYSIS 7; POTASSIUM 4.8 mEQ/L (3.4-4.9); SODIUM 151 mEQ/L (135-145); TOTAL PROTEIN 7.5 g/dL (6.6-8.7); TROPONIN I < 0.30 ng/mL (<=0.30)
[2016-12-23 15:01] LABS: CKMB 1.6 ng/mL (< 3.8)
[2016-12-23] MEDS ORDERED: Piperacillin/Tazobactam 3.375 GM in NS 110 ML IVPB ONE (15:15)
[2016-12-23] MEDS ORDERED: Zosyn 3.375gm inj ONE ×2 (15:24→15:29)
[2016-12-23 15:57] VITALS: BP 93/63
--- NOTE | 2016-12-23 16:40 | Emergency Room Report ---
History of Present Illness General Chief Complaint: Altered Level of Consciousness Source: EMS Present Illness HPI 81-year-old female presents ED for evaluation. Family at bedside states that patient been more altered and usual times one week. Normally talkative but has been nonverbal. Patient is not eating or drinking. Patient has history of dementia. No signs of distress. No chest pain or shortness of breath. No other aggravating relieving factors. No other associated symptoms Allergies: Coded Allergies: No Known Allergies (Unverified , 08/13/14) UNABLE TO ASSESS (Unverified , 11/18/16) Patient History Past Medical History: DM, HTN, dementia Past Surgical History: none Pertinent Family History: none Social History: Denies: smoking, alcohol use, drug use Now: No Immunizations: UTD Reviewed Nursing Documentation: PMH: Agreed, PSxH: Agreed Nursing Documentation-PMH Past Medical History: No History, Except For Hx Hypertension: Yes Hx Diabetes: Yes Hx Neurological Problems: Yes - DEMENTIA Review of Systems All Other Systems: limited Physical Exam Vital Signs Date Time Temp Pulse Resp B/P (MAP) Pulse Ox O2 Delivery O2 Flow Rate FiO2 12/23/16 12:38 97.7 110 18 107/82 97 Room Air Sp02 EP Interpretation: reviewed, normal General Appearance: lethargic, thin Head: normocephalic Eyes: bilateral eye normal inspection, bilateral eye PERRL ENT: normal ENT inspection Neck: normal inspection Respiratory: chest non-tender, lungs clear, normal breath sounds, speaking full sentences Cardiovascular #1: regular rate, rhythm, no edema Gastrointestinal: normal inspection Rectal: deferred Genitourinary: no CVA tenderness Musculoskeletal: normal inspection Neurologic: other - lethargic Psychiatric: other - lethargic Skin: normal inspection Lymphatic: normal inspection Medical Decision Making Diagnostic Impression: Primary Impression: Acute encephalopathy Additional Impressions: Dehydration Renal insufficiency Severe sepsis UTI (urinary tract infection) Qualified Codes: N39.0 - Urinary tract infection, site not specified ER Course Hospital Course 81-year-old female presenting to ED with generalized weakness, increased lethargy Differential diagnoses include: Pneumonia, UTI, sepsis, dehydration, IL/ unstable angina Clinical course Patient placed on stretcher. On cardiac monitor technician with stable vitals are ED course. After initial history and physical, I ordered labs, IV fluids, EKG, chest x-ray, blood cultures, UA. CT Head Labs - BUN/Cr elevated, no leukocytosis, troponins negative, UA grossly positive for UTI, lactate > 5 EKG - NSR, no acute changes CXR - no acute process CT head- no acute process Abx given. given 30cc/kg fluid bolus. Case discussed with Dr French and they agreed to admit patient to their service for further care and support I feel this is a highly complex case requiring extensive working including EKG/ Rhythm strip, Xray/CT/US, Blood/urine lab work, repeat exams while in ED, and administration of strong opiates/narcotics for pain control, admission to hospital or close patient follow up. Diagnosis - acute encephalopathy, dehydration, renal insufficiency, sepsis, UTI Patient admitted to telemetry in serious condition Labs Test 12/23/16 13:20 12/23/16 14:20 12/23/16 14:26 12/23/16 15:36 White Blood Count 10.8 K/UL (4.8-10.8) Red Blood Count 4.98 M/UL (4.20-5.40) Hemoglobin 14.6 G/DL (12.0-16.0) Hematocrit 44.8 % (37.0-47.0) Mean Corpuscular Volume 90 FL (80-99) Mean Corpuscular Hemoglobin 29.3 PG (27.0-31.0) Mean Corpuscular Hemoglobin Concent 32.6 G/DL (32.0-36.0) Red Cell Distribution Width 14.0 % (11.6-14.8) Platelet Count 164 K/UL (150-450) Mean Platelet Volume 8.1 FL (6.5-10.1) Neutrophils (%) (Auto) 75.6 % (45.0-75.0) Lymphocytes (%) (Auto) 18.4 % (20.0-45.0) Monocytes (%) (Auto) 5.1 % (1.0-10.0) Eosinophils (%) (Auto) 0.1 % (0.0-3.0) Basophils (%) (Auto) 0.9 % (0.0-2.0) Lactic Acid Level 5.30 mmol/L (0.66-2.22) 4.50 mmol/L (0.66-2.22) Urine Color Pale yellow Urine Appearance Turbid Urine pH 5 (4.5-8.0) Urine Specific [place] 1.015 (1.005-1.035) Urine Protein 1+ (NEGATIVE) Urine Glucose (UA) Negative (NEGATIVE) Urine Ketones Negative (NEGATIVE) Urine Occult Blood 1+ (NEGATIVE) Urine Nitrite Negative (NEGATIVE) Urine Bilirubin Negative (NEGATIVE) Urine Urobilinogen Normal MG/DL (0.0-1.0) Urine Leukocyte Esterase 1+ (NEGATIVE) Urine RBC 2-4 /HPF (0 - 2) Urine WBC 5-10 /HPF (0 - 2) Urine Squamous Epithelial Cells Moderate /LPF (NONE/OCC) Urine Bacteria Few /HPF (NONE) Sodium Level 151 mEQ/L (135-145) Potassium Level 4.8 mEQ/L (3.4-4.9) Chloride Level 111 mEQ/L (98-107) Carbon Dioxide Level 17 mEQ/L (20-30) Anion Gap 23 (5-15) Blood Urea Nitrogen 111 mg/dL (7-23) Creatinine 3.0 mg/dL (0.5-0.9) Estimat Glomerular Filtration Rate mL/min (>60) Glucose Level 166 mg/dL (74-106) Calcium Level 9.2 mg/dL (8.6-10.2) Total Bilirubin 0.2 mg/dL (0.0-1.2) Aspartate Amino Transf (AST/SGOT) 19 U/L (5-40) Alanine Aminotransferase (ALT/SGPT) 19 U/L (3-33) Alkaline Phosphatase 55 U/L (35-104) Total Creatine Kinase 335 U/L (26-140) Creatine Kinase MB 1.6 ng/mL (< 3.8) Creatine Kinase MB Relative Index 0.4 Troponin I < 0.30 ng/mL (<=0.30) Pro-B-Type Natriuretic Peptide 1069 pg/mL (0-450) Total Protein 7.5 g/dL (6.6-8.7) Albumin 3.7 g/dL (3.5-5.2) Globulin 3.8 g/dL Albumin/Globulin Ratio 0.9 (1.0-2.7) EKG Diagnostic Results Rate: tachycardiac Rhythm: NSR ST Segments: no acute changes ASA given to the pt in ED: No Rhythm Strip Diag. Results EP Interpretation: yes Rhythm: NSR, no PVC's, no ectopy Chest X-Ray Diagnostic Results Chest X-Ray Diagnostic Results : Chest X-Ray Ordered: Yes # of Views/Limited/Complete: 1 View Indication: Chest Pain EP Interpretation: Yes Interpretation: no consolidation, no effusion, no pneumothorax, no acute cardiopulmonary disease Impression: No acute disease Electronically Signed by: Electronically signed by Deng Alfaro MD CT/MRI/US Diagnostic Results CT/MRI/US Diagnostic Results : Imaging Test Ordered: CT Head Impression no acute process Last Vital Signs Date Time Temp Pulse Resp B/P (MAP) Pulse Ox O2 Delivery O2 Flow Rate FiO2 12/23/16 15:57 99.6 82 23 93/63 97 Room Air Status: improved Disposition: ADMITTED INPATIENT Condition: Serious Referrals: [facility],REFERRING (PCP) DENG ALFARO M.D. Dec 23, 2016 16:40
[2016-12-23 17:02] VITALS: BP 95/55
[2016-12-23] MEDS ORDERED: Miralax 17gm pkt ORAL PRN (17:15)
[2016-12-23] MEDS ORDERED: Morphine Sulfate 2mg/ml Inj IVP PRN (17:15)
[2016-12-23] MEDS ORDERED: Nitroglycerin Subl 0.4mg tab (Bottle Of 25) SL PRN (17:15)
[2016-12-23] MEDS ORDERED: DuoNeb 0.5-3(2.5)mg/3ml neb HHN PRN (17:15)
[2016-12-23 19:30] VITALS: BP 98/64
[2016-12-23 20:00] VITALS: BP 99/67
[2016-12-23] MEDS ORDERED: Vancomycin 1 GM in D5W 275 ML IVPB ONE (20:00)
[2016-12-23] MEDS: Heparin 5000 units/ml inj SUBQ SCH (21:00)
[2016-12-23] MEDS ORDERED: Cefepime HCl 2 GM in D5W 110 ML IV SCH (21:00)
[2016-12-23] MEDS: NovoLOG Insulin Flexpen SUBQ SCH (21:00)
[2016-12-23] MEDS: Cefepime 1gm/D5W 55ml IVPB SCH ×2 (23:56)
[2016-12-24] VITALS (7 sets, daily range): BP systolic 90–109; BP diastolic 51–101
[2016-12-24 06:00] LABS: APPEARANCE,URINE CLEAR; KETONES,URINE NEGATIVE (NEGATIVE); LEUKOCYTE ESTERASE ,URINE 1+ (NEGATIVE); NITRITE,URINE NEGATIVE (NEGATIVE); PH,URINE 5 (4.5-8.0); PROTEIN,URINE 2+ (NEGATIVE); UROBILINOGEN,URINE NORMAL MG/DL (0.0-1.0)
[2016-12-24 06:24] LABS: AMORPHOUS SEDIMENT,UR FEW /LPF; BACTERIA,URINE FEW /HPF; SQUAMOUS EPITHELIAL CELL,UR FEW /LPF (NONE/OCC)
[2016-12-24] MEDS: NovoLOG Insulin Flexpen SUBQ SCH ×4 (06:30→21:20)
[2016-12-24 07:11] LABS: BASOPHILS % (AUTO) 0.8 % (0.0-2.0); EOSINOPHILS % (AUTO) 2.4 % (0.0-3.0); LYMPHOCYTES % (AUTO) 13.3 % (20.0-45.0); MEAN CORPUSCULAR HEMOGLOBIN 28.7 PG (27.0-31.0); MEAN CORPUSCULAR HGB CONC 31.8 G/DL (32.0-36.0); MEAN CORPUSCULAR VOLUME 90 FL (80-99); MEAN PLATELET VOLUME 8.8 FL (6.5-10.1); NEUTROPHILS % (AUTO) 77.6 % (45.0-75.0); PLATELET COUNT 130 K/UL (150-450); RED BLOOD COUNT 4.29 M/UL (4.20-5.40); WHITE BLOOD COUNT 8.4 K/UL (4.8-10.8)
[2016-12-24 07:26] LABS: ALANINE AMINOTRANSFERASE 13 U/L (3-33); ANION GAP 17 (5-15); ASPARTATE AMINO TRANSFERASE 18 U/L (5-40); CALCIUM 8.1 mg/dL (8.6-10.2); CARBON DIOXIDE 19 mEQ/L (20-30); CHLORIDE 116 mEQ/L (98-107); CREATININE 1.8 mg/dL (0.5-0.9); HEMOLYSIS 2; POTASSIUM 3.6 mEQ/L (3.4-4.9); SODIUM 152 mEQ/L (135-145); TOTAL PROTEIN 6.3 g/dL (6.6-8.7)
[2016-12-24] MEDS: PARoxetine 10mg tab ORAL SCH (09:00)
[2016-12-24] MEDS: Heparin 5000 units/ml inj SUBQ SCH ×2 (09:00→21:00)
--- NOTE | 2016-12-24 11:18 | Consultation ---
Consult Note Consult Note asked to eval for elevated BUN and Cr 81-year-old female presents ED for evaluation. Family at bedside states that patient been more altered and usual times one week. Normally talkative but has been nonverbal. Patient is not eating or drinking. Patient has history of dementia. No signs of distress. No chest pain or shortness of breath. No other aggravating relieving factors. No other associated symptoms Past Medical History: DM, HTN, dementia Past Medical History: No History, Except For Hx Hypertension: Yes Hx Diabetes: Yes Hx Neurological Problems: Yes - DEMENTIA admitted with Encephalopathy-Renal failure- Dehydration- UTI Examined- Data reviewed Assessment/Plan Acute renal failure- Dehydration acute on chronic ( Alzheimer dementia) encephalopathy likely 2 to UTI UTI DM, mixed hyperlipidemia obstipation Hx of HTN hx of ischemic CVA end stage Alzheimer dementia risk for silent aspiration Plan : Hydrate- monitor renal parameters- per orders NAYE DAY Dec 24, 2016 11:17
--- NOTE | 2016-12-24 13:05 | History and Physical ---
History of Present Illness General Date patient seen: Dec 24, 2016 Reason for Hospitalization: Altered Level of Consciousness Present Illness HPI 81-year-old female with end stage dementia, DM, bed bound, high risk aspiration , presented to ED for evaluation of altered level of consciousness for one week. Normally talkative but has been nonverbal. Patient is not eating or drinking. No chest pain or shortness of breath. No other aggravating relieving factors. She was febrile in ER and was admitted for treatment of sepsis. Allergies: Coded Allergies: No Known Allergies (Unverified , 08/13/14) UNABLE TO ASSESS (Unverified , 11/18/16) Medication History Scheduled Amoxicillin* (Amoxil*), 500 MG ORAL BID Aspirin* (Aspir 81*), 81 MG ORAL DAILY, (Reported) Aspirin* (Aspir 81*), 81 MG ORAL DAILY, (Reported) Atorvastatin Calcium* (Atorvastatin Calcium*), 20 MG ORAL BEDTIME, (Reported) Cholecalciferol (Vitamin D3) (Vitamin D-400*), 400 UNITS ORAL DAILY, (Reported) Clopidogrel Bisulfate* (Plavix*), 75 MG ORAL DAILY, (Reported) Donepezil Hcl* (Donepezil Hcl*), 5 MG ORAL DAILY, (Reported) Donepezil Hcl* (Donepezil Hcl*), 5 MG ORAL DAILY, (Reported) Furosemide* (Lasix*), 20 MG ORAL DAILY, (Reported) Glimepiride* (Glimepiride*), 4 MG ORAL BIDAC, (Reported) Glimepiride* (Glimepiride*), 4 MG ORAL BEFORE BREAKFAST, (Reported) Insulin Aspart (Novolog Flexpen), 5 UNITS SUBQ BEFORE MEALS AND HS Insulin Detemir (Levemir Flexpen), 5 UNITS SUBQ DAILY Losartan Potassium* (Losartan Potassium*), 25 MG ORAL DAILY, (Reported) Megestrol Acetate (Megestrol Acetate), 20 MG ORAL DAILY, (Reported) Memantine Hcl* (Namenda*), 10 MG ORAL BID, (Reported) Memantine Hcl* (Namenda*), 10 MG ORAL DAILY, (Reported) Metformin Hcl* (Metformin Hcl*), 1,000 MG ORAL BID, (Reported) Metformin Hcl* (Metformin Hcl*), 1,000 MG ORAL BID, (Reported) Pantoprazole* (Pantoprazole*), 40 MG ORAL DAILY, (Reported) Paroxetine Hcl* (Paxil*), 10 MG ORAL DAILY, (Reported) Paroxetine Hcl* (Paxil*), 10 MG ORAL DAILY, (Reported) Pravastatin Sod* (Pravastatin Sod*), 20 MG ORAL BEDTIME, (Reported) Scheduled PRN Zolpidem Tartrate* (Zolpidem Tartrate*), 10 MG ORAL BEDTIME PRN for Insomnia, ( Reported) Patient History Healthcare decision maker Resuscitation status Do Not Resuscitate Advanced Directive on File No Past Medical/Surgical History Past Medical/Surgical History: (1) Diabetes mellitus Review of Systems All Other Systems: negative except mentioned in HPI Physical Exam General Appearance: cachetic Lines, tubes and drains: peripheral HEENT: normocephalic, atraumatic Neck: non-tender, normal alignment Respiratory/Chest: chest wall non-tender, lungs clear Breasts: no masses Cardiovascular/Chest: normal peripheral pulses Abdomen: normal bowel sounds, non tender Genitourinary/Rectal: normal genital exam, normal rectal exam Extremities: normal range of motion Last 24 Hour Vital Signs Date Time Temp Pulse Resp B/P (MAP) Pulse Ox O2 Delivery O2 Flow Rate FiO2 12/24/16 12:00 98.6 75 21 97/67 100 Room Air 12/24/16 08:00 97.3 73 22 93/65 98 Room Air 12/24/16 07:46 71 18 Room Air 12/24/16 04:00 97.5 79 21 97/60 95 Room Air 12/24/16 03:46 77 12/24/16 00:00 97.3 71 21 109/101 95 Room Air 12/23/16 23:15 80 12/23/16 20:00 97.0 85 22 99/67 98 Room Air 12/23/16 19:30 99.6 86 23 98/64 98 Room Air 12/23/16 19:30 70 18 Room Air 12/23/16 17:23 99.6 87 22 95/55 97 Room Air 12/23/16 17:02 99.6 87 22 95/55 97 Room Air 12/23/16 15:57 99.6 82 23 93/63 97 Room Air 12/23/16 14:29 101.2 83 26 108/72 98 Room Air 12/23/16 14:13 101.2 Laboratory Tests Test 12/23/16 13:20 12/23/16 14:20 12/23/16 14:26 12/23/16 15:36 White Blood Count 10.8 K/UL (4.8-10.8) Red Blood Count 4.98 M/UL (4.20-5.40) Hemoglobin 14.6 G/DL (12.0-16.0) Hematocrit 44.8 % (37.0-47.0) Mean Corpuscular Volume 90 FL (80-99) Mean Corpuscular Hemoglobin 29.3 PG (27.0-31.0) Mean Corpuscular Hemoglobin Concent 32.6 G/DL (32.0-36.0) Red Cell Distribution Width 14.0 % (11.6-14.8) Platelet Count 164 K/UL (150-450) Mean Platelet Volume 8.1 FL (6.5-10.1) Neutrophils (%) (Auto) 75.6 % (45.0-75.0) H Lymphocytes (%) (Auto) 18.4 % (20.0-45.0) L Monocytes (%) (Auto) 5.1 % (1.0-10.0) Eosinophils (%) (Auto) 0.1 % (0.0-3.0) Basophils (%) (Auto) 0.9 % (0.0-2.0) Lactic Acid Level 5.30 mmol/L (0.66-2.22) H 4.50 mmol/L (0.66-2.22) H Urine Color Pale yellow Urine Appearance Turbid Urine pH 5 (4.5-8.0) Urine Specific [place] 1.015 (1.005-1.035) Urine Protein 1+ (NEGATIVE) H Urine Glucose (UA) Negative (NEGATIVE) Urine Ketones Negative (NEGATIVE) Urine Occult Blood 1+ (NEGATIVE) H Urine Nitrite Negative (NEGATIVE) Urine Bilirubin Negative (NEGATIVE) Urine Urobilinogen Normal MG/DL (0.0-1.0) Urine Leukocyte Esterase 1+ (NEGATIVE) H Urine RBC 2-4 /HPF (0 - 2) H Urine WBC 5-10 /HPF (0 - 2) H Urine Squamous Epithelial Cells Moderate /LPF (NONE/OCC) H Urine Bacteria Few /HPF (NONE) Sodium Level 151 mEQ/L (135-145) H Potassium Level 4.8 mEQ/L (3.4-4.9) Chloride Level 111 mEQ/L (98-107) H Carbon Dioxide Level 17 mEQ/L (20-30) L Anion Gap 23 (5-15) H Blood Urea Nitrogen 111 mg/dL (7-23) H Creatinine 3.0 mg/dL (0.5-0.9) H Estimat Glomerular Filtration Rate mL/min (>60) Glucose Level 166 mg/dL (74-106) H Calcium Level 9.2 mg/dL (8.6-10.2) Total Bilirubin 0.2 mg/dL (0.0-1.2) Aspartate Amino Transf (AST/SGOT) 19 U/L (5-40) Alanine Aminotransferase (ALT/SGPT) 19 U/L (3-33) Alkaline Phosphatase 55 U/L (35-104) Total Creatine Kinase 335 U/L (26-140) H Creatine Kinase MB 1.6 ng/mL (< 3.8) Creatine Kinase MB Relative Index 0.4 Troponin I < 0.30 ng/mL (<=0.30) Pro-B-Type Natriuretic Peptide 1069 pg/mL (0-450) H Total Protein 7.5 g/dL (6.6-8.7) Albumin 3.7 g/dL (3.5-5.2) Globulin 3.8 g/dL Albumin/Globulin Ratio 0.9 (1.0-2.7) L Test 12/24/16 05:00 12/24/16 06:10 Urine Color Pale yellow Urine Appearance Clear Urine pH 5 (4.5-8.0) Urine Specific [place] 1.010 (1.005-1.035) Urine Protein 2+ (NEGATIVE) H Urine Glucose (UA) Negative (NEGATIVE) Urine Ketones Negative (NEGATIVE) Urine Occult Blood 4+ (NEGATIVE) H Urine Nitrite Negative (NEGATIVE) Urine Bilirubin Negative (NEGATIVE) Urine Urobilinogen Normal MG/DL (0.0-1.0) Urine Leukocyte Esterase 1+ (NEGATIVE) H Urine RBC 5-10 /HPF (0 - 2) H Urine WBC 2-4 /HPF (0 - 2) Urine Squamous Epithelial Cells Few /LPF (NONE/OCC) Urine Amorphous Sediment Few /LPF (NONE) H Urine Bacteria Few /HPF (NONE) White Blood Count 8.4 K/UL (4.8-10.8) Red Blood Count 4.29 M/UL (4.20-5.40) Hemoglobin 12.3 G/DL (12.0-16.0) Hematocrit 38.8 % (37.0-47.0) Mean Corpuscular Volume 90 FL (80-99) Mean Corpuscular Hemoglobin 28.7 PG (27.0-31.0) Mean Corpuscular Hemoglobin Concent 31.8 G/DL (32.0-36.0) L Red Cell Distribution Width 14.0 % (11.6-14.8) Platelet Count 130 K/UL (150-450) L Mean Platelet Volume 8.8 FL (6.5-10.1) Neutrophils (%) (Auto) 77.6 % (45.0-75.0) H Lymphocytes (%) (Auto) 13.3 % (20.0-45.0) L Monocytes (%) (Auto) 6.0 % (1.0-10.0) Eosinophils (%) (Auto) 2.4 % (0.0-3.0) Basophils (%) (Auto) 0.8 % (0.0-2.0) Sodium Level 152 mEQ/L (135-145) H Potassium Level 3.6 mEQ/L (3.4-4.9) Chloride Level 116 mEQ/L (98-107) H Carbon Dioxide Level 19 mEQ/L (20-30) L Anion Gap 17 (5-15) H Blood Urea Nitrogen 81 mg/dL (7-23) #H Creatinine 1.8 mg/dL (0.5-0.9) H Estimat Glomerular Filtration Rate mL/min (>60) Glucose Level 92 mg/dL (74-106) Lactic Acid Level 1.20 mmol/L (0.66-2.22) Calcium Level 8.1 mg/dL (8.6-10.2) L Total Bilirubin 0.3 mg/dL (0.0-1.2) Aspartate Amino Transf (AST/SGOT) 18 U/L (5-40) Alanine Aminotransferase (ALT/SGPT) 13 U/L (3-33) Alkaline Phosphatase 55 U/L (35-104) Total Protein 6.3 g/dL (6.6-8.7) L Albumin 3.2 g/dL (3.5-5.2) L Globulin 3.1 g/dL Albumin/Globulin Ratio 1.0 (1.0-2.7) Height (Feet): 5 Height (Inches): 1.00 Weight (Pounds): 110 Medications Current Medications Medications (Trade) Dose Ordered Sig/Ninfa Route PRN Reason Start Time Stop Time Status Last Admin Dose Admin Acetaminophen (Tylenol) 650 mg Q4H PRN ORAL fever 12/23/16 17:15 01/22/17 17:14 Albuterol/ Ipratropium (DuoNeb 0.5-3(2.5)mg/3ml) 3 ml Q4H PRN HHN Shortness of Breath 12/23/16 17:15 12/28/16 17:14 Cefepime HCl 1 gm/ Dextrose 55 ml @ 110 mls/hr Q24H IVPB 12/23/16 23:00 12/30/16 22:59 12/23/16 23:56 Dextrose 1,000 ml @ 125 mls/hr Q8H IV 12/24/16 11:30 01/23/17 11:29 Dextrose (Dextrose 50%) STAT PRN IV Hypoglycemia 12/23/16 17:15 01/22/17 17:14 Heparin Sodium (Porcine) (Heparin 5000 units/ml) 5,000 units EVERY 12 HOURS SUBQ 12/23/16 21:00 01/22/17 20:59 Insulin Aspart (NovoLOG) BEFORE MEALS AND HS SUBQ 12/23/16 21:00 01/22/17 20:59 12/24/16 12:44 Morphine Sulfate (Morphine Sulfate) 2 mg Q4H PRN IVP Moderate Pain (Pain Scale 4-6) 12/23/16 17:15 12/30/16 17:14 Nitroglycerin (Ntg) 0.4 mg Q5M PRN SL Prn Chest Pain 12/23/16 17:15 01/22/17 17:14 Ondansetron HCl (Zofran) 4 mg Q6H PRN IVP Nausea & Vomiting 12/23/16 17:15 01/22/17 17:14 Pantoprazole (Protonix) 40 mg EVERY 12 HOURS ORAL 12/24/16 21:00 01/23/17 20:59 Paroxetine HCl (Paxil) 10 mg DAILY ORAL 12/24/16 09:00 01/23/17 08:59 Polyethylene Glycol (Miralax) 17 gm DAILYPRN PRN ORAL Constipation 12/23/16 17:15 01/22/17 17:14 Temazepam (Restoril) 15 mg HSPRN PRN ORAL Insomnia 12/23/16 17:15 12/30/16 17:14 Vancomycin HCl (Vanco rx to dose) 1 ea DAILY PRN MISC PER RX PROTOCOL 12/23/16 18:30 01/22/17 18:29 Vancomycin HCl 750 mg/Dextrose 275 ml @ 183.708 mls/hr Q24H IVPB 12/24/16 18:00 12/29/16 17:59 Assessment/Plan Problem List: (1) Acute encephalopathy ICD Codes: G93.40 - Encephalopathy, unspecified SNOMED: 8949932 (2) UTI (urinary tract infection) ICD Codes: N39.0 - Urinary tract infection, site not specified SNOMED: 58347680 Qualifiers: Qualified Codes: N39.0 - Urinary tract infection, site not specified (3) Severe sepsis ICD Codes: A41.9 - Sepsis, unspecified organism; R65.20 - Severe sepsis without septic shock SNOMED: 85223933 (4) ATN (acute tubular necrosis) ICD Codes: N17.0 - Acute kidney failure with tubular necrosis SNOMED: 46473868 (5) Uncontrolled diabetes mellitus ICD Codes: E11.65 - Type 2 diabetes mellitus with hyperglycemia SNOMED: 21583902, 937574639 Assessment/Plan IV fluids Iv abx check cultures check labs swallow evaluation dvt prophylaxis RHONA BOJORQUEZ Dec 24, 2016 13:05
--- NOTE | 2016-12-24 13:07 | Pulmonology Progress Note ---
Assessment/Plan Problems: (1) Acute encephalopathy (2) UTI (urinary tract infection) (3) Severe sepsis (4) ATN (acute tubular necrosis) (5) Uncontrolled diabetes mellitus Assessment/Plan improving renal function improving ID and renal evaluation. sliding scale Subjective ROS Limited/Unobtainable: Yes Constitutional: Reports: no symptoms HEENT: Repors: no symptoms Allergies: Coded Allergies: No Known Allergies (Unverified , 08/13/14) UNABLE TO ASSESS (Unverified , 11/18/16) Objective Last 24 Hour Vital Signs Date Time Temp Pulse Resp B/P (MAP) Pulse Ox O2 Delivery O2 Flow Rate FiO2 12/24/16 12:00 98.6 75 21 97/67 100 Room Air 12/24/16 08:00 97.3 73 22 93/65 98 Room Air 12/24/16 07:46 71 18 Room Air 21 12/24/16 04:00 97.5 79 21 97/60 95 Room Air 12/24/16 03:46 77 12/24/16 00:00 97.3 71 21 109/101 95 Room Air 12/23/16 23:15 80 12/23/16 20:00 97.0 85 22 99/67 98 Room Air 12/23/16 19:30 99.6 86 23 98/64 98 Room Air 12/23/16 19:30 70 18 Room Air 12/23/16 17:23 99.6 87 22 95/55 97 Room Air 12/23/16 17:02 99.6 87 22 95/55 97 Room Air 12/23/16 15:57 99.6 82 23 93/63 97 Room Air 12/23/16 14:29 101.2 83 26 108/72 98 Room Air 12/23/16 14:13 101.2 General Appearance: cachetic HEENT: normocephalic, atraumatic Respiratory/Chest: chest wall non-tender, lungs clear Breasts: no masses Cardiovascular: normal peripheral pulses, normal rate Abdomen: normal bowel sounds, soft, non tender Genitourinary: normal external genitalia Extremities: no cyanosis Skin: no rash, no lesions Neurologic/Psychiatric: brazer controlled atmospheric furnace II-XII grossly normal, no motor/sensory deficits Lymphatic: no neck adenopathy Laboratory Tests 12/23/16 13:20: White Blood Count 10.8, Red Blood Count 4.98, Hemoglobin 14.6, Hematocrit 44.8, Mean Corpuscular Volume 90, Mean Corpuscular Hemoglobin 29.3, Mean Corpuscular Hemoglobin Concent 32.6, Red Cell Distribution Width 14.0, Platelet Count 164, Mean Platelet Volume 8.1, Neutrophils (%) (Auto) 75.6H, Lymphocytes (%) (Auto) 18.4L, Monocytes (%) (Auto) 5.1, Eosinophils (%) (Auto) 0.1, Basophils (%) (Auto ) 0.9, Lactic Acid Level 5.30H 12/23/16 14:20: Urine Color Pale yellow, Urine Appearance Turbid, Urine pH 5, Urine Specific [place] 1.015, Urine Protein 1+H, Urine Glucose (UA) Negative, Urine Ketones Negative, Urine Occult Blood 1+H, Urine Nitrite Negative, Urine Bilirubin Negative, Urine Urobilinogen Normal, Urine Leukocyte Esterase 1+H, Urine RBC 2- 4H, Urine WBC 5-10H, Urine Squamous Epithelial Cells ModerateH, Urine Bacteria Few 12/23/16 14:26: Sodium Level 151H, Potassium Level 4.8, Chloride Level 111H, Carbon Dioxide Level 17L, Anion Gap 23H, Blood Urea Nitrogen 111H, Creatinine 3.0H, Estimat Glomerular Filtration Rate , Glucose Level 166H, Calcium Level 9.2, Total Bilirubin 0.2, Aspartate Amino Transf (AST/SGOT) 19, Alanine Aminotransferase ( ALT/SGPT) 19, Alkaline Phosphatase 55, Total Creatine Kinase 335H, Creatine Kinase MB 1.6, Creatine Kinase MB Relative Index 0.4, Troponin I < 0.30, Pro-B- Type Natriuretic Peptide 1069H, Total Protein 7.5, Albumin 3.7, Globulin 3.8, Albumin/Globulin Ratio 0.9L 12/23/16 15:36: Lactic Acid Level 4.50H 12/24/16 05:00: Urine Color Pale yellow, Urine Appearance Clear, Urine pH 5, Urine Specific [place] 1.010, Urine Protein 2+H, Urine Glucose (UA) Negative, Urine Ketones Negative, Urine Occult Blood 4+H, Urine Nitrite Negative, Urine Bilirubin Negative, Urine Urobilinogen Normal, Urine Leukocyte Esterase 1+H, Urine RBC 5- 10H, Urine WBC 2-4, Urine Squamous Epithelial Cells Few, Urine Amorphous Sediment FewH, Urine Bacteria Few 12/24/16 06:10: White Blood Count 8.4, Red Blood Count 4.29, Hemoglobin 12.3, Hematocrit 38.8, Mean Corpuscular Volume 90, Mean Corpuscular Hemoglobin 28.7, Mean Corpuscular Hemoglobin Concent 31.8L, Red Cell Distribution Width 14.0, Platelet Count 130L , Mean Platelet Volume 8.8, Neutrophils (%) (Auto) 77.6H, Lymphocytes (%) (Auto ) 13.3L, Monocytes (%) (Auto) 6.0, Eosinophils (%) (Auto) 2.4, Basophils (%) ( Auto) 0.8, Sodium Level 152H, Potassium Level 3.6, Chloride Level 116H, Carbon Dioxide Level 19L, Anion Gap 17H, Blood Urea Nitrogen 81#H, Creatinine 1.8H, Estimat Glomerular Filtration Rate , Glucose Level 92, Lactic Acid Level 1.20, Calcium Level 8.1L, Total Bilirubin 0.3, Aspartate Amino Transf (AST/SGOT) 18, Alanine Aminotransferase (ALT/SGPT) 13, Alkaline Phosphatase 55, Total Protein 6.3L, Albumin 3.2L, Globulin 3.1, Albumin/Globulin Ratio 1.0 Current Medications Medications (Trade) Dose Ordered Sig/Ninfa Route PRN Reason Start Time Stop Time Status Last Admin Dose Admin Acetaminophen (Tylenol) 650 mg Q4H PRN ORAL fever 12/23/16 17:15 01/22/17 17:14 Albuterol/ Ipratropium (DuoNeb 0.5-3(2.5)mg/3ml) 3 ml Q4H PRN HHN Shortness of Breath 12/23/16 17:15 12/28/16 17:14 Cefepime HCl 1 gm/ Dextrose 55 ml @ 110 mls/hr Q24H IVPB 12/23/16 23:00 12/30/16 22:59 12/23/16 23:56 Dextrose 1,000 ml @ 125 mls/hr Q8H IV 12/24/16 11:30 01/23/17 11:29 Dextrose (Dextrose 50%) STAT PRN IV Hypoglycemia 12/23/16 17:15 01/22/17 17:14 Heparin Sodium (Porcine) (Heparin 5000 units/ml) 5,000 units EVERY 12 HOURS SUBQ 12/23/16 21:00 01/22/17 20:59 Insulin Aspart (NovoLOG) BEFORE MEALS AND HS SUBQ 12/23/16 21:00 01/22/17 20:59 12/24/16 12:44 Morphine Sulfate (Morphine Sulfate) 2 mg Q4H PRN IVP Moderate Pain (Pain Scale 4-6) 12/23/16 17:15 12/30/16 17:14 Nitroglycerin (Ntg) 0.4 mg Q5M PRN SL Prn Chest Pain 12/23/16 17:15 01/22/17 17:14 Ondansetron HCl (Zofran) 4 mg Q6H PRN IVP Nausea & Vomiting 12/23/16 17:15 01/22/17 17:14 Pantoprazole (Protonix) 40 mg EVERY 12 HOURS ORAL 12/24/16 21:00 01/23/17 20:59 Paroxetine HCl (Paxil) 10 mg DAILY ORAL 12/24/16 09:00 01/23/17 08:59 Polyethylene Glycol (Miralax) 17 gm DAILYPRN PRN ORAL Constipation 12/23/16 17:15 01/22/17 17:14 Temazepam (Restoril) 15 mg HSPRN PRN ORAL Insomnia 12/23/16 17:15 12/30/16 17:14 Vancomycin HCl (Vanco rx to dose) 1 ea DAILY PRN MISC PER RX PROTOCOL 12/23/16 18:30 01/22/17 18:29 Vancomycin HCl 750 mg/Dextrose 275 ml @ 183.708 mls/hr Q24H IVPB 12/24/16 18:00 12/29/16 17:59 RHONA BOJORQUEZ Dec 24, 2016 13:07
--- NOTE | 2016-12-24 16:09 | Cardiology Report ---
APPROVED REPORT EKG Measurement Heart [id number] Sinus tachycardia Left axis deviation Possible Anterior infarct, age undetermined Abnormal ECG
[2016-12-24] MEDS ORDERED: Vancomycin 750mg/D5W 275ml IVPB SCH ×2 (18:00)
[2016-12-24] MEDS ORDERED: Vancomycin 750mg/NS 250ml IVPB SCH (18:00)
[2016-12-24] MEDS ORDERED: Fleet's Mineral Oil Enema RECTAL ONE (18:00)
--- NOTE | 2016-12-24 19:45 | Infectious Diseases Prog Note ---
Infectious Disease Consult Infectious Disease Consult Infectious Disease Consult INFECTIOUS DISEASE CONSULTATION DATE OF CONSULTATION: [id number] CONSULTING PHYSICIAN: Jb Linares M.D., MTM&H, CTropMed Covering for Dr. Dia REFERRING PHYSICIAN: Katelynn French MD REASON FOR CONSULTATION: Altered mental status, fevers, severe sepsis HISTORY OF PRESENT ILLNESS: 81 y/o female w/ PMHx of Dementia, DM suboptimally controlled (HGBA1c>9), HTN, HLD, prior h/o ischemic CVA, R eye disconjugate gaze, LLE DVT () admitted for altered mental status, fevers, severe sepsis. She had recent admission to [facility] in early for fevers and altered mental status, found to have sensitive E coil uti, initially treated with one day IV zosyn, 2 day IV cefepime, then definitive therapy with PO amoxicillin completed on [id number]. lives at home with daughter. more altered x 1week, normally talkative, but has become non verbal, decreased PO intake, denied chest pain or SOB, no other aggravating or alleviating factors, no foul smelling urine at home. prior to past admission she had been constipated for almost 10 days. also diagnosed with LLE DVT during that admission. renal u/s identifid that small atrophic R pelvic kidney. now on empiric IV vancomycin and cefepime D#1 ( since 12/23) with resolution of fevers and WBC down from 10 to 8. CXR w/o pna. non contrast head CT with some question of ventriculomegaly and old ischemic disease. KENIA with severe lactic acidosis. PAST MEDICAL HISTORY: HTN DM-HGBA1c>9 HLD Dementia, prior ischemic CVA R disconjugate gaze R ectopic pelvic kidney E coli UTI--, s/p treatment completed on [id number] LLE DVT-- Past Surgical History: ALLERGIES: No known drug allergies. ANTIBIOTICS: Home and hospitalized medications reviewed. SOCIAL HISTORY: FAMILY HISTORY: Noncontributory REVIEW OF SYSTEMS: 11 point ROS negative except for that mentioned in HPI above. PHYSICAL EXAM: VITAL SIGNS: reviewed, currently afebrile. persistent SBP in mid upper 90s. HEENT: Mild pale conjunctiva. oral mucosa dry, pharynx w/o exudate or effusion. No icterus. Head normocephalic, neck supple. R eye disconjugate gaze (stable since last admission and before) NECK: No cervical LAD CHEST: Clear to auscultation bilaterally. HEART: S1 and S2, no murmurs, no rubs. ABDOMEN: soft, non tender, distended, normoactive bowel sounds. EXTREMITIES: No cyanosis, no clubbing, trace edema to ankles. NEUROLOGIC: Awake, alert, no focal neurologic motor deficits. LYMPH: no LAD RECTAL: deferred : no hutchinson in place. incontinent of urine. LABORATORY AND DIAGNOSTIC DATA: WBC 10.8-->8.4, plt 130, hgb 12.3, N 77.6% Na 152, Co2 19, LAC 4.5-->1.2 SCr 3-->1.8 trop I neg pro BNP 1069 alb 3.2 LFTs nl u/a 1.010/2+ protein/a5-10 rbc/5-10 wbc/1+ LE blood cx pending ucx pending RADIOLOGY: CXR reviewed. NCHCT reviewed. ASSESSMENT AND PLAN ASSESSMENT: 81 y/o female with: Severe sepsis (fevers, lactic acidosis), mostly likely secondary to UTI h/o torres sensitive E coil UTI [id number] (12/01/ s/p 14D po amoxicillin) Lactic acidosis fevers, defervesced on D#1 empiric Vanc/cefepime renally dosed. DM, poorly controlled h/o obstipation h/o recent LLE DVT risk for silent aspiration h/o HTN h/o ischemic CVA end stage dementia venticulomegaly obstipation KENIA NKDA PLAN: --continue empiric IV cefepime and vancomycin D#1, renally dosed --f/u ucx --f/u blood cx --AAS given h/o obstipation to r/o low likelihood of free air --monitor temp curve --monitor cbc, chem panel --tight glycemic control to improve immune system response to infection --pending r/o other metabolic causes of acute on chronic encephalopathy Thank you for this consultation. Covering for Dr. Dia. Jb Linares M.D. Dec 24, 2016 19:45
[2016-12-24] MEDS: Cefepime 1gm/D5W 55ml IVPB SCH ×2 (23:41)
[2016-12-25 03:43] VITALS: BP 89/54
[2016-12-25] MEDS: NovoLOG Insulin Flexpen SUBQ SCH ×4 (06:23→22:46)
[2016-12-25 08:00] VITALS: BP_SYST 104; BP_SYST 155; BP_DIAS 45; BP_DIAS 74
[2016-12-25] MEDS: Heparin 5000 units/ml inj SUBQ SCH ×2 (09:00→21:00)
[2016-12-25] MEDS: PARoxetine 10mg tab ORAL SCH (09:09)
--- NOTE | 2016-12-25 09:56 | Wound Care Consultation ---
Wound Assessment Wound Assessment #1: Wound Number: 1 Wound Present on Admission: Yes New Wound: No Status Change of Wound: No Wound Location Body Site: perineal area Wound Type: chemical burn Meg Test: Does not Meg Percent of Wound Margaret/Red: 100 - scattered Wound Drainage Amount: None Wound Drainage Odor: None/Absent Tissue Surrounding Wound: Erythemic Wound General Appearance: Reddened Wound Assessment #2: Wound Number: 2 Wound Present on Admission: Yes New Wound: No Status Change of Wound: No Wound Location Body Site Modif: right Wound Location Body Site: sacral - aspect of sacral Wound Type: pressure ulcer Meg Test: Does not Meg Pressure Ulcer Stage: III - Deep tissue injury revealing self to stage 3. Wound Thickness: Full Thickness Wound Length: 7.0 Wound Width: 7.0 Wound Depth: 0.3 Percent of Wound Margaret/Red: 50 Percent of Wound Purple/Maroon: 50 Wound Drainage Description: Serosanguineous Wound Drainage Amount: Moderate Wound Drainage Odor: None/Absent Tissue Surrounding Wound: Denuded - erythemic Wound General Appearance: Reddened - maroon, Draining Wound Assessment #3: Wound Number: 3 Wound Present on Admission: Yes New Wound: No Status Change of Wound: No Wound Location Body Site Modif: mid Wound Location Body Site: sacral - extending to left aspect of sacral scattered Wound Type: pressure ulcer Meg Test: Does not Meg Pressure Ulcer Stage: deep tissue injury - scattered Wound Thickness: Full Thickness Wound Length: 11.0 Wound Width: 11.0 Wound Depth: utd Percent of Wound Purple/Maroon: 100 Wound Drainage Amount: None Wound Drainage Odor: None/Absent Tissue Surrounding Wound: Erythemic Wound General Appearance: Reddened - deep maroon color. Wound Assessment #4: Wound Number: 4 Wound Present on Admission: Yes New Wound: No Status Change of Wound: No Wound Location Body Site Modif: mid Wound Location Body Site: sacral Wound Type: pressure ulcer Meg Test: Does not Meg Pressure Ulcer Stage: III Wound Thickness: Full Thickness Wound Length: 1.5 Wound Width: 1.5 Wound Depth: 0.3 Percent of Wound Margaret/Red: 100 Wound Drainage Description: Serosanguineous Wound Drainage Amount: Moderate Wound Drainage Odor: None/Absent Tissue Surrounding Wound: Erythemic Wound General Appearance: Reddened, Draining Wound Comment #1 perineal area chemical burn. #2 Right aspect of sacral stage 3 revealing self from deep tissue injury with denuded skin. #3 Sacral extending to left aspect of sacral scattered deep tissue injuries. #4 Mid sacral stage 3 pressure ulcer Recommendation. - APPLY LOW AIR LOSS SPR MATTRESS. - Local wound care as ordered. - Avoid shear and friction. - Optimize nutrition. - Turn and reposition. - Keep clean and dry. - Offload affected sacral area. - Offload heels and feet. - Apply heel protectors for skin prevention. -Assess and notify MD for any further changes of condition to skin noted. ANIL MORROW Dec 25, 2016 09:56
[2016-12-25 10:17] LABS: BASOPHILS % (AUTO) 0.9 % (0.0-2.0); EOSINOPHILS % (AUTO) 2.3 % (0.0-3.0); LYMPHOCYTES % (AUTO) 14.5 % (20.0-45.0); MEAN CORPUSCULAR HEMOGLOBIN 28.3 PG (27.0-31.0); MEAN CORPUSCULAR HGB CONC 31.1 G/DL (32.0-36.0); MEAN CORPUSCULAR VOLUME 91 FL (80-99); MEAN PLATELET VOLUME 9.6 FL (6.5-10.1); MONOCYTES % (AUTO) 4.9 % (1.0-10.0); NEUTROPHILS % (AUTO) 77.5 % (45.0-75.0); PLATELET COUNT 140 K/UL (150-450); RED CELL DISTRIBUTION WIDTH 14.3 % (11.6-14.8); WHITE BLOOD COUNT 5.7 K/UL (4.8-10.8)
[2016-12-25 10:36] LABS: AMMONIA 12 umol/L (11-51)
[2016-12-25 10:40] LABS: ALANINE AMINOTRANSFERASE 14 U/L (3-33); ALBUMIN/GLOBULIN RATIO 1.1 (1.0-2.7); ANION GAP 12 (5-15); ASPARTATE AMINO TRANSFERASE 14 U/L (5-40); CALCIUM 8.2 mg/dL (8.6-10.2); CARBON DIOXIDE 24 mEQ/L (20-30); CHLORIDE 110 mEQ/L (98-107); CHOLESTEROL 162 mg/dL (< 200); CHOLESTEROL/HDL RATIO 4.4 (3.3-4.4); CRP QUANT 4.3 mg/dL (< 0.5); LDL CHOLESTEROL (CALC.) 95 mg/dL (60-99); MAGNESIUM 1.5 mg/dL (1.7-2.5); PHOSPHORUS 1.5 mg/dL (2.5-4.8); SODIUM 146 mEQ/L (135-145); TOTAL PROTEIN 6.1 g/dL (6.6-8.7); URIC ACID 7.5 mg/dL (3.0-7.5)
[2016-12-25 10:41] LABS: REFLEX LACTIC ACID YES OR NO YES
[2016-12-25 10:45] LABS: FERRITIN 382 ng/mL (13-150); THYROID STIMULATING HORMONE 0.931 uIU/mL (0.300-4.500)
[2016-12-25 10:47] LABS: HEMOLYSIS 0; IRON 53 ug/dL (37-145); TOTAL IRON BINDING CAPACITY 193 ug/dL (250-400)
--- NOTE | 2016-12-25 11:32 | Diagnostic Imaging Report ---
Indication: Constipation, abdominal pain Technique: One view of the chest Comparison: none Findings: Considerable stool is seen throughout the colon. Bowel gas pattern is otherwise unremarkable. No unusual masses or calcifications. Impression: Evidence of mild constipation No acute process otherwise
[2016-12-25 12:00] VITALS: BP 95/55
--- NOTE | 2016-12-25 12:46 | Pulmonology Progress Note ---
Assessment/Plan Problems: (1) Acute encephalopathy (2) UTI (urinary tract infection) (3) Severe sepsis (4) ATN (acute tubular necrosis) (5) Uncontrolled diabetes mellitus Assessment/Plan afebrile improving renal function improving ID and renal evaluation. sliding scale med/surg Subjective ROS Limited/Unobtainable: No Constitutional: Reports: no symptoms HEENT: Repors: no symptoms Respiratory: Reports: no symptoms Allergies: Coded Allergies: No Known Allergies (Unverified , 08/13/14) UNABLE TO ASSESS (Unverified , 11/18/16) Objective Last 24 Hour Vital Signs Date Time Temp Pulse Resp B/P (MAP) Pulse Ox O2 Delivery O2 Flow Rate FiO2 12/25/16 12:00 95.7 53 20 95/55 98 Room Air 12/25/16 08:00 96.2 59 20 104/45 95 Room Air 12/25/16 06:34 66 16 Room Air 12/25/16 04:00 59 12/25/16 03:43 98.4 54 17 89/54 93 Room Air 12/25/16 00:00 57 12/24/16 23:59 98.2 57 16 93/65 95 Room Air 12/24/16 20:17 98.6 79 17 90/51 94 Room Air 12/24/16 20:00 63 12/24/16 19:58 67 16 Room Air 21 12/24/16 16:00 97.7 75 19 92/61 99 Room Air 12/24/16 16:00 67 Intake and Output 12/25/16 12/26/16 19:00 07:00 Intake Total 125 ml Balance 125 ml IV Total 125 ml # Voids 1 General Appearance: WD/WN, no acute distress Respiratory/Chest: chest wall non-tender, lungs clear Breasts: no masses Cardiovascular: normal rate Abdomen: normal bowel sounds, soft, non tender Genitourinary: normal external genitalia Extremities: no cyanosis, no clubbing Skin: no rash, no lesions Neurologic/Psychiatric: director digital strategy II-XII grossly normal Microbiology Date/Time Source Procedure Growth Status 12/23/16 13:00 Blood Blood Culture - Preliminary NO GROWTH AFTER 24 HOURS Resulted 12/23/16 13:00 Blood Blood Culture - Preliminary NO GROWTH AFTER 24 HOURS Resulted Laboratory Tests 12/25/16 04:30: Urine Random Sodium 44 12/25/16 09:55: White Blood Count 5.7, Red Blood Count 4.20, Hemoglobin 11.9L, Hematocrit 38.1, Mean Corpuscular Volume 91, Mean Corpuscular Hemoglobin 28.3, Mean Corpuscular Hemoglobin Concent 31.1L, Red Cell Distribution Width 14.3, Platelet Count 140L , Mean Platelet Volume 9.6, Neutrophils (%) (Auto) 77.5H, Lymphocytes (%) (Auto ) 14.5L, Monocytes (%) (Auto) 4.9, Eosinophils (%) (Auto) 2.3, Basophils (%) ( Auto) 0.9, Sodium Level 146H, Potassium Level 3.0L, Chloride Level 110H, Carbon Dioxide Level 24, Anion Gap 12, Blood Urea Nitrogen 40#H, Creatinine 1.0H, Estimat Glomerular Filtration Rate , Glucose Level 272#H, Lactic Acid Level 2.70H, Uric Acid 7.5, Calcium Level 8.2L, Phosphorus Level 1.5L, Magnesium Level 1.5L, Iron Level 53, Total Iron Binding Capacity 193L, Percent Iron Saturation 27, Unsaturated Iron Binding 140, Ferritin 382H, Total Bilirubin 0.3 , Gamma Glutamyl Transpeptidase 18, Aspartate Amino Transf (AST/SGOT) 14, Alanine Aminotransferase (ALT/SGPT) 14, Alkaline Phosphatase 46, Ammonia 12, Total Creatine Kinase 119, C-Reactive Protein, Quantitative 4.3H, Pro-B-Type Natriuretic Peptide 506H, Total Protein 6.1L, Albumin 3.3L, Globulin 2.8, Albumin/Globulin Ratio 1.1, Triglycerides Level 151H, Cholesterol Level 162, LDL Cholesterol 95, HDL Cholesterol 37, Cholesterol/HDL Ratio 4.4, Vitamin B12 Level 636, Folate [Pending], Thyroid Stimulating Hormone (TSH) 0.931 Current Medications Medications (Trade) Dose Ordered Sig/Ninfa Route PRN Reason Start Time Stop Time Status Last Admin Dose Admin Acetaminophen (Tylenol) 650 mg Q4H PRN ORAL fever 12/23/16 17:15 01/22/17 17:14 Albuterol/ Ipratropium (DuoNeb 0.5-3(2.5)mg/3ml) 3 ml Q4H PRN HHN Shortness of Breath 12/23/16 17:15 12/28/16 17:14 Cefepime HCl 1 gm/ Dextrose 55 ml @ 110 mls/hr Q24H IVPB 12/23/16 23:00 12/30/16 22:59 12/24/16 23:41 Dextrose (Dextrose 50%) STAT PRN IV Hypoglycemia 12/23/16 17:15 01/22/17 17:14 Heparin Sodium (Porcine) (Heparin 5000 units/ml) 5,000 units EVERY 12 HOURS SUBQ 12/23/16 21:00 01/22/17 20:59 Insulin Aspart (NovoLOG) BEFORE MEALS AND HS SUBQ 12/23/16 21:00 01/22/17 20:59 12/25/16 11:50 Lansoprazole (Prevacid) 30 mg EVERY 12 HOURS ORAL 12/24/16 22:00 01/23/17 21:59 12/25/16 09:09 Morphine Sulfate (Morphine Sulfate) 2 mg Q4H PRN IVP Moderate Pain (Pain Scale 4-6) 12/23/16 17:15 12/30/16 17:14 Nitroglycerin (Ntg) 0.4 mg Q5M PRN SL Prn Chest Pain 12/23/16 17:15 01/22/17 17:14 Ondansetron HCl (Zofran) 4 mg Q6H PRN IVP Nausea & Vomiting 12/23/16 17:15 01/22/17 17:14 Paroxetine HCl (Paxil) 10 mg DAILY ORAL 12/24/16 09:00 01/23/17 08:59 12/25/16 09:09 Polyethylene Glycol (Miralax) 17 gm DAILYPRN PRN ORAL Constipation 12/23/16 17:15 01/22/17 17:14 Temazepam (Restoril) 15 mg HSPRN PRN ORAL Insomnia 12/23/16 17:15 12/30/16 17:14 Vancomycin HCl (Vanco rx to dose) 1 ea DAILY PRN MISC PER RX PROTOCOL 12/23/16 18:30 01/22/17 18:29 Vancomycin/Sodium Chloride 250 ml @ 166.667 mls/hr Q24H IVPB 12/24/16 18:00 12/29/16 17:59 12/24/16 18:52 RHONA BOJORQUEZ Dec 25, 2016 12:46
--- NOTE | 2016-12-25 14:58 | General Progress Note ---
Assessment/Plan Status: stable Status Narrative Cr down from 3 to 1 na lower Assessment/Plan Acute renal failure- resolving Dehydration- resolving acute on chronic ( Alzheimer dementia) encephalopathy likely 2 to UTI UTI DM, mixed hyperlipidemia obstipation Hx of HTN hx of ischemic CVA end stage Alzheimer dementia risk for silent aspiration Plan : Hydrate- 500 cc D5w K and Phos and Mag supplement monitor renal parameters- per orders Subjective ROS Limited/Unobtainable: No Constitutional: Reports: malaise Allergies: Coded Allergies: No Known Allergies (Unverified , 08/13/14) UNABLE TO ASSESS (Unverified , 11/18/16) Objective Last 24 Hour Vital Signs Date Time Temp Pulse Resp B/P (MAP) Pulse Ox O2 Delivery O2 Flow Rate FiO2 12/25/16 12:00 95.7 53 20 95/55 98 Room Air 12/25/16 08:00 96.2 59 20 104/45 95 Room Air 12/25/16 06:34 66 16 Room Air 12/25/16 04:00 59 12/25/16 03:43 98.4 54 17 89/54 93 Room Air 12/25/16 00:00 57 12/24/16 23:59 98.2 57 16 93/65 95 Room Air 12/24/16 20:17 98.6 79 17 90/51 94 Room Air 12/24/16 20:00 63 12/24/16 19:58 67 16 Room Air 21 12/24/16 16:00 97.7 75 19 92/61 99 Room Air 12/24/16 16:00 67 Intake and Output 12/25/16 12/26/16 19:00 07:00 Intake Total 125 ml Balance 125 ml IV Total 125 ml # Voids 1 Laboratory Tests 12/25/16 04:30: Urine Random Sodium 44 12/25/16 09:55: White Blood Count 5.7, Red Blood Count 4.20, Hemoglobin 11.9L, Hematocrit 38.1, Mean Corpuscular Volume 91, Mean Corpuscular Hemoglobin 28.3, Mean Corpuscular Hemoglobin Concent 31.1L, Red Cell Distribution Width 14.3, Platelet Count 140L , Mean Platelet Volume 9.6, Neutrophils (%) (Auto) 77.5H, Lymphocytes (%) (Auto ) 14.5L, Monocytes (%) (Auto) 4.9, Eosinophils (%) (Auto) 2.3, Basophils (%) ( Auto) 0.9, Sodium Level 146H, Potassium Level 3.0L, Chloride Level 110H, Carbon Dioxide Level 24, Anion Gap 12, Blood Urea Nitrogen 40#H, Creatinine 1.0H, Estimat Glomerular Filtration Rate , Glucose Level 272#H, Lactic Acid Level 2.70H, Uric Acid 7.5, Calcium Level 8.2L, Phosphorus Level 1.5L, Magnesium Level 1.5L, Iron Level 53, Total Iron Binding Capacity 193L, Percent Iron Saturation 27, Unsaturated Iron Binding 140, Ferritin 382H, Total Bilirubin 0.3 , Gamma Glutamyl Transpeptidase 18, Aspartate Amino Transf (AST/SGOT) 14, Alanine Aminotransferase (ALT/SGPT) 14, Alkaline Phosphatase 46, Ammonia 12, Total Creatine Kinase 119, C-Reactive Protein, Quantitative 4.3H, Pro-B-Type Natriuretic Peptide 506H, Total Protein 6.1L, Albumin 3.3L, Globulin 2.8, Albumin/Globulin Ratio 1.1, Triglycerides Level 151H, Cholesterol Level 162, LDL Cholesterol 95, HDL Cholesterol 37, Cholesterol/HDL Ratio 4.4, Vitamin B12 Level 636, Folate [Pending], Thyroid Stimulating Hormone (TSH) 0.931 12/25/16 13:00: Lactic Acid Level 3.20H Height (Feet): 5 Height (Inches): 1.00 Weight (Pounds): 110 General Appearance: no apparent distress Objective PE not changed NAYE DAY Dec 25, 2016 14:58
[2016-12-25] MEDS ORDERED: D5W 500ml 550 ML IV ONE (15:15)
[2016-12-25 16:00] VITALS: BP 95/53
[2016-12-25] MEDS ORDERED: Potassium Phosphate 30 MM in NS 275 ML IV ONE (16:00)
--- NOTE | 2016-12-25 19:15 | Infectious Diseases Prog Note ---
Assessment/Plan Assessment/Plan ASSESSMENT: 81 y/o female with: Severe sepsis (fevers, lactic acidosis), mostly likely secondary to UTI h/o torres sensitive E coil UTI [id number] (12/01/16 s/p 14D po amoxicillin) Lactic acidosis fevers, SP . DM, poorly controlled h/o obstipation h/o recent LLE DVT risk for silent aspiration h/o HTN h/o ischemic CVA end stage dementia venticulomegaly obstipation KENIA NKDA PLAN: --continue empiric IV cefepime d# 3 / 7 and DC vancomycin D#3 --f/u ucx --f/u blood cx --AAS given h/o obstipation to r/o low likelihood of free air --monitor temp curve --monitor cbc, chem panel --pending r/o other metabolic causes of acute on chronic encephalopathy Subjective Allergies: Coded Allergies: No Known Allergies (Unverified , 08/13/14) UNABLE TO ASSESS (Unverified , 11/18/16) Subjective comfortable Objective Vital Signs Last 24 Hour Vital Signs Date Time Temp Pulse Resp B/P (MAP) Pulse Ox O2 Delivery O2 Flow Rate FiO2 12/25/16 16:00 95.9 56 20 95/53 95 Room Air 12/25/16 12:00 51 12/25/16 12:00 95.7 53 20 95/55 98 Room Air 12/25/16 08:00 96.2 59 20 104/45 95 Room Air 12/25/16 06:34 66 16 Room Air 12/25/16 04:00 59 12/25/16 03:43 98.4 54 17 89/54 93 Room Air 12/25/16 00:00 57 12/24/16 23:59 98.2 57 16 93/65 95 Room Air 12/24/16 20:17 98.6 79 17 90/51 94 Room Air 12/24/16 20:00 63 12/24/16 19:58 67 16 Room Air 21 Height (Feet): 5 Height (Inches): 1.00 Weight (Pounds): 110 Respiratory/Chest: lungs clear Cardiovascular: no gallop/murmur Abdomen: no organomegaly Microbiology Date/Time Source Procedure Growth Status 12/23/16 13:00 Blood Blood Culture - Preliminary NO GROWTH AFTER 24 HOURS Resulted 12/23/16 13:00 Blood Blood Culture - Preliminary NO GROWTH AFTER 24 HOURS Resulted Laboratory Tests Test 12/25/16 04:30 12/25/16 09:55 12/25/16 13:00 Urine Random Sodium 44 mmol/L White Blood Count 5.7 K/UL (4.8-10.8) Red Blood Count 4.20 M/UL (4.20-5.40) Hemoglobin 11.9 G/DL (12.0-16.0) L Hematocrit 38.1 % (37.0-47.0) Mean Corpuscular Volume 91 FL (80-99) Mean Corpuscular Hemoglobin 28.3 PG (27.0-31.0) Mean Corpuscular Hemoglobin Concent 31.1 G/DL (32.0-36.0) L Red Cell Distribution Width 14.3 % (11.6-14.8) Platelet Count 140 K/UL (150-450) L Mean Platelet Volume 9.6 FL (6.5-10.1) Neutrophils (%) (Auto) 77.5 % (45.0-75.0) H Lymphocytes (%) (Auto) 14.5 % (20.0-45.0) L Monocytes (%) (Auto) 4.9 % (1.0-10.0) Eosinophils (%) (Auto) 2.3 % (0.0-3.0) Basophils (%) (Auto) 0.9 % (0.0-2.0) Sodium Level 146 mEQ/L (135-145) H Potassium Level 3.0 mEQ/L (3.4-4.9) L Chloride Level 110 mEQ/L (98-107) H Carbon Dioxide Level 24 mEQ/L (20-30) Anion Gap 12 (5-15) Blood Urea Nitrogen 40 mg/dL (7-23) #H Creatinine 1.0 mg/dL (0.5-0.9) H Estimat Glomerular Filtration Rate mL/min (>60) Glucose Level 272 mg/dL (74-106) #H Lactic Acid Level 2.70 mmol/L (0.66-2.22) H 3.20 mmol/L (0.66-2.22) H Uric Acid 7.5 mg/dL (3.0-7.5) Calcium Level 8.2 mg/dL (8.6-10.2) L Phosphorus Level 1.5 mg/dL (2.5-4.8) L Magnesium Level 1.5 mg/dL (1.7-2.5) L Iron Level 53 ug/dL (37-145) Total Iron Binding Capacity 193 ug/dL (250-400) L Percent Iron Saturation 27 % (15-50) Unsaturated Iron Binding 140 ug/dL (112-346) Ferritin 382 ng/mL (13-150) H Total Bilirubin 0.3 mg/dL (0.0-1.2) Gamma Glutamyl Transpeptidase 18 U/L (5-36) Aspartate Amino Transf (AST/SGOT) 14 U/L (5-40) Alanine Aminotransferase (ALT/SGPT) 14 U/L (3-33) Alkaline Phosphatase 46 U/L (35-104) Ammonia 12 umol/L (11-51) Total Creatine Kinase 119 U/L (26-140) C-Reactive Protein, Quantitative 4.3 mg/dL (< 0.5) H Pro-B-Type Natriuretic Peptide 506 pg/mL (0-450) H Total Protein 6.1 g/dL (6.6-8.7) L Albumin 3.3 g/dL (3.5-5.2) L Globulin 2.8 g/dL Albumin/Globulin Ratio 1.1 (1.0-2.7) Triglycerides Level 151 mg/dL (< 150) H Cholesterol Level 162 mg/dL (< 200) LDL Cholesterol 95 mg/dL (60-99) HDL Cholesterol 37 mg/dL (> 60) Cholesterol/HDL Ratio 4.4 (3.3-4.4) Vitamin B12 Level 636 pg/mL (211-946) Folate Pending Thyroid Stimulating Hormone (TSH) 0.931 uIU/mL (0.300-4.500) Current Medications Medications (Trade) Dose Ordered Sig/Ninfa Route PRN Reason Start Time Stop Time Status Last Admin Dose Admin Acetaminophen (Tylenol) 650 mg Q4H PRN ORAL fever 12/23/16 17:15 01/22/17 17:14 Albuterol/ Ipratropium (DuoNeb 0.5-3(2.5)mg/3ml) 3 ml Q4H PRN HHN Shortness of Breath 12/23/16 17:15 12/28/16 17:14 Cefepime HCl 1 gm/ Dextrose 55 ml @ 110 mls/hr Q24H IVPB 12/23/16 23:00 12/30/16 22:59 12/24/16 23:41 Dextrose (Dextrose 50%) STAT PRN IV Hypoglycemia 12/23/16 17:15 01/22/17 17:14 Heparin Sodium (Porcine) (Heparin 5000 units/ml) 5,000 units EVERY 12 HOURS SUBQ 12/23/16 21:00 01/22/17 20:59 Insulin Aspart (NovoLOG) BEFORE MEALS AND HS SUBQ 12/23/16 21:00 01/22/17 20:59 12/25/16 16:47 Lansoprazole (Prevacid) 30 mg EVERY 12 HOURS ORAL 12/24/16 22:00 01/23/17 21:59 12/25/16 09:09 Magnesium Sulfate 100 ml @ 100 mls/hr Q1H IVPB 12/25/16 15:30 12/25/16 19:29 12/25/16 16:51 Morphine Sulfate (Morphine Sulfate) 2 mg Q4H PRN IVP Moderate Pain (Pain Scale 4-6) 12/23/16 17:15 12/30/16 17:14 Nitroglycerin (Ntg) 0.4 mg Q5M PRN SL Prn Chest Pain 12/23/16 17:15 01/22/17 17:14 Ondansetron HCl (Zofran) 4 mg Q6H PRN IVP Nausea & Vomiting 12/23/16 17:15 01/22/17 17:14 Paroxetine HCl (Paxil) 10 mg DAILY ORAL 12/24/16 09:00 01/23/17 08:59 12/25/16 09:09 Polyethylene Glycol (Miralax) 17 gm DAILYPRN PRN ORAL Constipation 12/23/16 17:15 01/22/17 17:14 Potassium Phosphate 30 mm/ Sodium Chloride 285 ml @ 47.5 mls/hr ONCE ONCE IV 12/25/16 16:00 12/25/16 21:59 Temazepam (Restoril) 15 mg HSPRN PRN ORAL Insomnia 12/23/16 17:15 12/30/16 17:14 Vancomycin HCl (Vanco rx to dose) 1 ea DAILY PRN MISC PER RX PROTOCOL 12/23/16 18:30 01/22/17 18:29 Vancomycin/Sodium Chloride 250 ml @ 166.667 mls/hr Q24H IVPB 12/24/16 18:00 12/29/16 17:59 12/24/16 18:52 SAVITA RENE M.D. Dec 25, 2016 19:15
[2016-12-25 20:00] VITALS: BP 163/68
[2016-12-25] MEDS ORDERED: Nitroglycerin Subl 0.4mg tab (Bottle Of 25) SL PRN (20:45)
[2016-12-25] MEDS ORDERED: Morphine Sulfate 2mg/ml Inj IVP PRN (21:00)
[2016-12-25] MEDS ORDERED: Miralax 17gm pkt ORAL PRN (21:00)
[2016-12-25] MEDS ORDERED: DuoNeb 0.5-3(2.5)mg/3ml neb HHN PRN (21:00)
[2016-12-25] MEDS ORDERED: Cefepime HCl 1 GM in D5W 55 ML IVPB SCH (23:00)
[2016-12-26] VITALS: BP 94/58
[2016-12-26 04:00] VITALS: BP 94/60
[2016-12-26] MEDS: NovoLOG Insulin Flexpen SUBQ SCH ×3 (06:03→16:42)
[2016-12-26 07:28] LABS: ALANINE AMINOTRANSFERASE 14 U/L (3-33); ANION GAP 11 (5-15); ASPARTATE AMINO TRANSFERASE 16 U/L (5-40); CALCIUM 8.2 mg/dL (8.6-10.2); CARBON DIOXIDE 23 mEQ/L (20-30); CHLORIDE 115 mEQ/L (98-107); CREATININE 0.9 mg/dL (0.5-0.9); CRP QUANT 2.6 mg/dL (< 0.5); HEMOLYSIS 11; MAGNESIUM 2.8 mg/dL (1.7-2.5); PHOSPHORUS 2.4 mg/dL (2.5-4.8); POTASSIUM 3.7 mEQ/L (3.4-4.9); SODIUM 149 mEQ/L (135-145); TOTAL PROTEIN 5.7 g/dL (6.6-8.7); URIC ACID 6.4 mg/dL (3.0-7.5)
[2016-12-26 08:00] VITALS: BP 113/41
--- NOTE | 2016-12-26 08:41 | Pulmonology Progress Note ---
Assessment/Plan Assessment/Plan ASSESSMENT acute metabolic encephalopathy on chronic advanced dementia ( due to acute renal failure and sepsis) acute renal failure ( likely due to sepsis and dehydration) -resolved hypernatremia ( due to dehydration) dehydration -resolved severe sepsis lactic acidosis UTI DM Hx of ischemic CVA end stage Alzheimer dementia sacral decub st 3 POA PLAN OF CARE [facility] floor IVF creat down to normal nephro follows 500 ml D5W today monitor renal parameters, lytes, avoid nephrotoxic replace lytes as needed CT head negative CXR negative abdominal X ray negative abx ID follows urine cx not collected blood cx preliminary negative BS management with SS of insulin swallow eval with evidence of dysphagia diet per quality of life with strict aspiration precautions, 1 to 1 feeding DVT GI prophylaxis wound care as per wound nurse eval DNR DNI status dc plan case discussed and evaluated by supervising physician Subjective Allergies: Coded Allergies: Potato (Unverified Allergy, Unknown, 12/26/16) Subjective creat down to normal Na-149 more awake and alert Objective Last 24 Hour Vital Signs Date Time Temp Pulse Resp B/P (MAP) Pulse Ox O2 Delivery O2 Flow Rate FiO2 12/26/16 08:02 76 20 Room Air 12/26/16 04:00 97.4 94 20 94/60 94 Room Air 12/26/16 00:00 97.6 81 20 94/58 98 Room Air 12/25/16 20:06 70 18 Room Air 12/25/16 20:00 96.9 69 20 163/68 93 Room Air 21 12/25/16 16:00 95.9 56 20 95/53 95 Room Air 12/25/16 12:00 51 12/25/16 12:00 95.7 53 20 95/55 98 Room Air HEENT: normocephalic, atraumatic, anicteric, other - Lt eye with strabismus Respiratory/Chest: lungs clear, no respiratory distress, no accessory muscle use Cardiovascular: normal rate, regular rhythm, no JVD Abdomen: normal bowel sounds, soft, non tender, non distended Genitourinary: normal external genitalia Neurologic/Psychiatric: abnormal gait - bedridden , alert, responsive - bedridden Musculoskeletal: atrophy - BLE Microbiology Date/Time Source Procedure Growth Status 12/23/16 13:00 Blood Blood Culture - Preliminary NO GROWTH AFTER 48 HOURS Resulted 12/23/16 13:00 Blood Blood Culture - Preliminary NO GROWTH AFTER 48 HOURS Resulted Laboratory Tests 12/25/16 09:55: White Blood Count 5.7, Red Blood Count 4.20, Hemoglobin 11.9L, Hematocrit 38.1, Mean Corpuscular Volume 91, Mean Corpuscular Hemoglobin 28.3, Mean Corpuscular Hemoglobin Concent 31.1L, Red Cell Distribution Width 14.3, Platelet Count 140L , Mean Platelet Volume 9.6, Neutrophils (%) (Auto) 77.5H, Lymphocytes (%) (Auto ) 14.5L, Monocytes (%) (Auto) 4.9, Eosinophils (%) (Auto) 2.3, Basophils (%) ( Auto) 0.9, Sodium Level 146H, Potassium Level 3.0L, Chloride Level 110H, Carbon Dioxide Level 24, Anion Gap 12, Blood Urea Nitrogen 40#H, Creatinine 1.0H, Estimat Glomerular Filtration Rate , Glucose Level 272#H, Lactic Acid Level 2.70H, Uric Acid 7.5, Calcium Level 8.2L, Phosphorus Level 1.5L, Magnesium Level 1.5L, Iron Level 53, Total Iron Binding Capacity 193L, Percent Iron Saturation 27, Unsaturated Iron Binding 140, Ferritin 382H, Total Bilirubin 0.3 , Gamma Glutamyl Transpeptidase 18, Aspartate Amino Transf (AST/SGOT) 14, Alanine Aminotransferase (ALT/SGPT) 14, Alkaline Phosphatase 46, Ammonia 12, Total Creatine Kinase 119, C-Reactive Protein, Quantitative 4.3H, Pro-B-Type Natriuretic Peptide 506H, Total Protein 6.1L, Albumin 3.3L, Globulin 2.8, Albumin/Globulin Ratio 1.1, Triglycerides Level 151H, Cholesterol Level 162, LDL Cholesterol 95, HDL Cholesterol 37, Cholesterol/HDL Ratio 4.4, Vitamin B12 Level 636, Folate [Pending], Thyroid Stimulating Hormone (TSH) 0.931 12/25/16 13:00: Lactic Acid Level 3.20H 12/26/16 06:30: Sodium Level 149H, Potassium Level 3.7, Chloride Level 115H, Carbon Dioxide Level 23, Anion Gap 11, Blood Urea Nitrogen 24H, Creatinine 0.9, Estimat Glomerular Filtration Rate , Glucose Level 215H, Lactic Acid Level 1.00, Uric Acid 6.4, Calcium Level 8.2L, Phosphorus Level 2.4L, Magnesium Level 2.8H, Total Bilirubin 0.2, Aspartate Amino Transf (AST/SGOT) 16, Alanine Aminotransferase (ALT/SGPT) 14, Alkaline Phosphatase 46, C-Reactive Protein, Quantitative 2.6H, Total Protein 5.7L, Albumin 2.9L, Globulin 2.8, Albumin/ Globulin Ratio 1.0 Current Medications Medications (Trade) Dose Ordered Sig/Ninfa Route PRN Reason Start Time Stop Time Status Last Admin Dose Admin Acetaminophen (Tylenol) 650 mg Q4H PRN ORAL fever 12/25/16 21:00 01/22/17 20:59 Albuterol/ Ipratropium (DuoNeb 0.5-3(2.5)mg/3ml) 3 ml Q4H PRN HHN Shortness of Breath 12/25/16 21:00 12/28/16 20:59 Cefepime HCl 1 gm/ Dextrose 55 ml @ 110 mls/hr Q24H IVPB 12/25/16 23:00 12/30/16 22:59 12/25/16 23:00 Dextrose (Dextrose 50%) STAT PRN IV Hypoglycemia 12/25/16 21:00 01/24/17 20:59 Heparin Sodium (Porcine) (Heparin 5000 units/ml) 5,000 units EVERY 12 HOURS SUBQ 12/25/16 21:00 01/22/17 20:59 Insulin Aspart (NovoLOG) BEFORE MEALS AND HS SUBQ 12/25/16 21:00 01/22/17 20:59 12/26/16 06:03 Lansoprazole (Prevacid) 30 mg EVERY 12 HOURS ORAL 12/25/16 21:00 01/23/17 21:59 12/25/16 22:25 Morphine Sulfate (Morphine Sulfate) 2 mg Q4H PRN IVP Moderate Pain (Pain Scale 4-6) 12/25/16 21:00 12/30/16 20:59 Nitroglycerin (Ntg) 0.4 mg Q5MIN X 3 DOSES PRN SL Prn Chest Pain 12/25/16 20:45 01/24/17 20:44 Ondansetron HCl (Zofran) 4 mg Q6H PRN IVP Nausea & Vomiting 12/25/16 21:00 01/22/17 20:59 Paroxetine HCl (Paxil) 10 mg DAILY ORAL 12/26/16 09:00 01/23/17 08:59 Polyethylene Glycol (Miralax) 17 gm DAILYPRN PRN ORAL Constipation 12/25/16 21:00 01/24/17 20:59 Potassium Phosphate 30 mm/ Sodium Chloride 285 ml @ 47.5 mls/hr ONCE ONCE IV 12/26/16 22:00 12/27/16 03:59 Temazepam (Restoril) 15 mg HSPRN PRN ORAL Insomnia 12/25/16 21:00 01/01/17 20:59 Jill Cobb NP ([facility]anchtein) Dec 26, 2016 08:41
[2016-12-26] MEDS ORDERED: PARoxetine 10mg tab ORAL SCH (09:00)
[2016-12-26] MEDS: Heparin 5000 units/ml inj SUBQ SCH (09:00)
--- NOTE | 2016-12-26 09:45 | General Progress Note ---
Assessment/Plan Status: stable Assessment/Plan Acute renal failure- resolving Dehydration- resolving acute on chronic ( Alzheimer dementia) encephalopathy likely 2 to UTI UTI DM, mixed hyperlipidemia obstipation Hx of HTN hx of ischemic CVA end stage Alzheimer dementia risk for silent aspiration Plan : Hydrate- 500 cc D5w K and Phos and Mag supplement monitor renal parameters- per orders Subjective ROS Limited/Unobtainable: No Constitutional: Reports: malaise Allergies: Coded Allergies: Potato (Unverified Allergy, Unknown, 12/26/16) Objective Last 24 Hour Vital Signs Date Time Temp Pulse Resp B/P (MAP) Pulse Ox O2 Delivery O2 Flow Rate FiO2 12/26/16 08:02 76 20 Room Air 12/26/16 04:00 97.4 94 20 94/60 94 Room Air 12/26/16 00:00 97.6 81 20 94/58 98 Room Air 12/25/16 20:06 70 18 Room Air 12/25/16 20:00 96.9 69 20 163/68 93 Room Air 21 12/25/16 16:00 95.9 56 20 95/53 95 Room Air 12/25/16 12:00 51 12/25/16 12:00 95.7 53 20 95/55 98 Room Air Laboratory Tests 12/25/16 09:55: White Blood Count 5.7, Red Blood Count 4.20, Hemoglobin 11.9L, Hematocrit 38.1, Mean Corpuscular Volume 91, Mean Corpuscular Hemoglobin 28.3, Mean Corpuscular Hemoglobin Concent 31.1L, Red Cell Distribution Width 14.3, Platelet Count 140L , Mean Platelet Volume 9.6, Neutrophils (%) (Auto) 77.5H, Lymphocytes (%) (Auto ) 14.5L, Monocytes (%) (Auto) 4.9, Eosinophils (%) (Auto) 2.3, Basophils (%) ( Auto) 0.9, Sodium Level 146H, Potassium Level 3.0L, Chloride Level 110H, Carbon Dioxide Level 24, Anion Gap 12, Blood Urea Nitrogen 40#H, Creatinine 1.0H, Estimat Glomerular Filtration Rate , Glucose Level 272#H, Lactic Acid Level 2.70H, Uric Acid 7.5, Calcium Level 8.2L, Phosphorus Level 1.5L, Magnesium Level 1.5L, Iron Level 53, Total Iron Binding Capacity 193L, Percent Iron Saturation 27, Unsaturated Iron Binding 140, Ferritin 382H, Total Bilirubin 0.3 , Gamma Glutamyl Transpeptidase 18, Aspartate Amino Transf (AST/SGOT) 14, Alanine Aminotransferase (ALT/SGPT) 14, Alkaline Phosphatase 46, Ammonia 12, Total Creatine Kinase 119, C-Reactive Protein, Quantitative 4.3H, Pro-B-Type Natriuretic Peptide 506H, Total Protein 6.1L, Albumin 3.3L, Globulin 2.8, Albumin/Globulin Ratio 1.1, Triglycerides Level 151H, Cholesterol Level 162, LDL Cholesterol 95, HDL Cholesterol 37, Cholesterol/HDL Ratio 4.4, Vitamin B12 Level 636, Folate [Pending], Thyroid Stimulating Hormone (TSH) 0.931 12/25/16 13:00: Lactic Acid Level 3.20H 12/26/16 06:30: Sodium Level 149H, Potassium Level 3.7, Chloride Level 115H, Carbon Dioxide Level 23, Anion Gap 11, Blood Urea Nitrogen 24H, Creatinine 0.9, Estimat Glomerular Filtration Rate , Glucose Level 215H, Lactic Acid Level 1.00, Uric Acid 6.4, Calcium Level 8.2L, Phosphorus Level 2.4L, Magnesium Level 2.8H, Total Bilirubin 0.2, Aspartate Amino Transf (AST/SGOT) 16, Alanine Aminotransferase (ALT/SGPT) 14, Alkaline Phosphatase 46, C-Reactive Protein, Quantitative 2.6H, Total Protein 5.7L, Albumin 2.9L, Globulin 2.8, Albumin/ Globulin Ratio 1.0 Height (Feet): 5 Height (Inches): 1.00 Weight (Pounds): 110 General Appearance: no apparent distress Objective PE not changed NAYE DAY Dec 26, 2016 09:45
[2016-12-26 11:47] VITALS: BP 101/67
[2016-12-26] MEDS ORDERED: Phospha 250 Neutral tab ORAL SCH (13:00)
[2016-12-26 16:12] VITALS: BP 101/63
[2016-12-26] MEDS ORDERED: 1/2 NS 1000ml IV ONE (17:44)
[2016-12-26] MEDS ORDERED: NS 275ml ONE (17:44)
[2016-12-26] MEDS ORDERED: Tubing IV Secondary IV ONE (17:44)
[2016-12-26] MEDS ORDERED: Potassium Phosphate 30 MM in NS 275 ML IV ONE (22:00)
[2016-12-26] MEDS ORDERED: Cefepime 2gm/D5W 110ml IV SCH ×2 (23:00)
--- NOTE | 2016-12-29 11:47 | Discharge Summary ---
Discharge Summary Hospital Course Date of Admission Dec 23, 2016 at 15:00 Date of Discharge Dec 26, 2016 at 18:13 Admitting Diagnosis AMS HPI Taylor To is a 81 year old female who was admitted on Dec 23, 2016 at 15: 00 for Altered Mental Status Hospital Course dc summary #[id number] Discharge Medications Continued Medications: Aspirin* (Aspir 81*) 81 Mg Tablet.dr 81 MG ORAL DAILY, TAB Atorvastatin Calcium* (Atorvastatin Calcium*) 20 Mg Tablet 20 MG ORAL BEDTIME, TAB Cholecalciferol (Vitamin D3) (Vitamin D-400*) 400 Unit Tablet 400 UNITS ORAL DAILY, #10 TAB 0 Refills Donepezil Hcl* (Donepezil Hcl*) 5 Mg Tab.rapdis 5 MG ORAL DAILY, TAB Glimepiride* (Glimepiride*) 4 Mg Tablet 4 MG ORAL BEFORE BREAKFAST, TAB Insulin Aspart (Novolog Flexpen) 100 Unit/1 Ml Insuln.pen 5 UNITS SUBQ BEFORE MEALS AND HS for 28 Days, #30 EA Insulin Detemir (Levemir Flexpen) 100 Unit/1 Ml Insuln.pen 5 UNITS SUBQ DAILY for 30 Days, EA Memantine Hcl* (Namenda*) 10 Mg Tablet 10 MG ORAL BID, TAB Paroxetine Hcl* (Paxil*) 10 Mg Tablet 10 MG ORAL DAILY, TAB 0 Refills Pravastatin Sod* (Pravastatin Sod*) 20 Mg Tablet 20 MG ORAL BEDTIME, TAB Discharge Discharge Disposition Patient was discharged to Home (01) Discharge Diagnoses: Reza (Teresa)Jill NP Dec 29, 2016 11:47
--- NOTE | 2017-01-01 18:32 | Discharge Summary 2 SIG ---
DATE OF ADMISSION: 12/23/2016 DATE OF DISCHARGE: 12/26/2016 Reason For Admission: This is an 81-year-old female with a history of diabetes, hypertension, and end-stage dementia, was brought by family for evaluation of altered level of consciousness. Normally, she is talkative, but was nonverbal. The patient was not able to eat or drink. No signs of respiratory distress. No chest pain. No shortness of breath. Vital signs were stable. Pulse oximetry was stable on room air. Laboratory workup revealed elevated BUN and creatinine. No leukocytosis. Troponin negative. UA grossly positive for UTI. Lactate more than 5. EKG revealed normal sinus rhythm, no acute changes. Chest x-ray revealed no acute cardiopulmonary process. CT of the head revealed no acute intracranial pathology. The patient started on fluid resuscitation. The patient pancultured and started on empiric antibiotics and admitted for further management. ADMITTING DIAGNOSES: 1. Acute encephalopathy on chronic dementia. 2. Severe sepsis. 3. Urinary tract infection. 4. Acute tubular necrosis. 5. Dehydration. 6. Sacral decubitus, stage III, present on admission. Hospital Stay: The patient admitted. The patient was on the IV fluids. The patient was on IV antibiotics. ID consult and Nephrology consult were requested. Blood cultures were negative. Repeated urinalysis revealed no evidence of UTI. Chest x-ray as mentioned above shows no evidence of acute cardiopulmonary pathology. Antibiotic discontinued prior to discharge. Renal parameters were closely monitored. Creatinine down to normal 0.9. BUN down to 24 from initial 111 prior to discharge. The patient more awake and alert to the baseline. Acute tubular necrosis resolved and was likely due to severe sepsis and dehydration. Blood sugar was managed with sliding scale of insulin. The patient was discharged on short and long acting insulin at home. Blood pressure was on the low side. Antihypertensives were on hold. Aspirin was continued. Wound care provided as per wound care nurse recommendation. Statin was continued. Lipid panel stable. Strict aspiration precautions were maintained. The patient at risk for silent aspiration as noted by speech therapy. Diet provided for quality of life with strict aspiration precaution and one-to-one feeding. Abdominal x-ray was negative. DVT and GI prophylaxes provided. The patient is DNR/DNI status. The patient is stable for discharge home. DISCHARGE DIAGNOSES: 1. Acute metabolic encephalopathy on chronic advanced dementia (due to acute renal failure and sepsis). 2. Acute renal failure (likely due to sepsis and dehydration, resolved). 3. Hypernatremia (due to dehydration, resolved). 4. Dehydration, resolved. 5. Severe sepsis. 6. Lactic acidosis. 7. Possible urinary tract infection. 8. Diabetes mellitus. 9. History of ischemic cerebrovascular accident. 10. End-stage Alzheimer dementia. 11. Sacral decubitus, stage III, present on admission. 12. History of hypertension, currently normotensive. Hold antihypertensive medication. Of note, sodium from initial 151 down to 140, trending down. DISCHARGE MEDICATIONS: See medication reconciliation list. DISCHARGE INSTRUCTIONS: The patient discharged home. FOLLOWUP: Follow up with primary medical doctor. Katelynn French M.D. I have been assigned to dictate discharge summary on this account and I was not involved in the patient's management. Jill Rousseaumontefiore medical centerDino NRuizPRuiz DR: Freida JOB#: [id number] CC:
== END 2016-12-26 18:13 | disposition home or self-care (01) | DRG 720 ==
LOC: EDBD 12:41 → EMR 13:10 → EDUNIT# 13:10 → 2E 15:00 → EDBEDREQ 16:58 → 4E 12-25 20:23
DX: A41.9 Sepsis, unspecified organism (principal); N17.0 Acute kidney failure with tubular necrosis; G93.41 Metabolic encephalopathy; L89.153 Pressure ulcer of sacral region, stage 3; E11.65 Type 2 diabetes mellitus with hyperglycemia; E86.0 Dehydration; G93.89 Other specified disorders of brain; N39.0 Urinary tract infection, site not specified; R65.20 Severe sepsis without septic shock; I10 Essential (primary) hypertension; Z66 Do not resuscitate; G30.9 Alzheimer's disease, unspecified; E78.2 Mixed hyperlipidemia; K59.00 Constipation, unspecified; F02.80 Dementia in other diseases classified elsewhere, unspecified severity, without behavioral disturbance, psychotic disturbance, mood disturbance, and anxiety; Z74.01 Bed confinement status; Z79.82 Long term (current) use of aspirin; Z86.718 Personal history of other venous thrombosis and embolism; Z86.73 Personal history of transient ischemic attack (TIA), and cerebral infarction without residual deficits
CPT/HCPCS: 36415; 70450; 71010; 74000; 80053; 80061; 81001; 81003; 82140; 82550; 82553; 82607; 82728; 82746; 82962; 82977; 83540; 83550; 83605; 83735; 83880; 84100; 84300; 84443; 84484; 84550; 85025; 86140; 87040; 93005; 94664; 99285; C9399; J1815

== ENCOUNTER 2017-02-17 11:50 | Inpatient (IN) | payer MEDICAID ==
[~2017-02-17] VITALS: Ht 162.6 cm; Wt 61.2 kg
[2017-02-17 12:00] VITALS: BP 92/65
--- NOTE | 2017-02-17 12:33 | Emergency Room Report ---
History of Present Illness General Chief Complaint: Generalized Weakness Source: Family Member Present Illness HPI Patient presents with family and paramedics were reports of change in mental status Patient has underlying Alzheimer's dementia over the past 4-5 days patient has been more weak less responsive she has not been eating as well Appears uncomfortable with any touch to the legs and arms Unknown regarding fever family reports one bowel movement per week and her last bowel movement was last week No reports of vomiting There was 2 lesions on the skin the one on the left lower leg and right leg Allergies: Coded Allergies: Potato (Unverified Allergy, Unknown, 12/26/16) Patient History Past Medical History: see triage record Pertinent Family History: none Reviewed Nursing Documentation: PMH: Agreed, PSxH: Agreed Nursing Documentation-PMH Hx Cardiac Problems: Yes - hyperlipidemia Hx Hypertension: Yes Hx Diabetes: Yes Hx Cancer: No Hx Gastrointestinal Problems: Yes Hx Neurological Problems: Yes Hx Cerebrovascular Accident: Yes - 3-4 years ago Hx Dementia: Yes Hx Alzheimer's Disease: Yes - since 2011 Hx Weakness: Yes Review of Systems All Other Systems: limited - Other than the ones mentioned in the history of present illness all others are reviewed however they do stay limited due to the patient's mental status Physical Exam Vital Signs Date Time Temp Pulse Resp B/P (MAP) Pulse Ox O2 Delivery O2 Flow Rate FiO2 02/17/17 11:45 94 20 110/85 98 Room Air Sp02 EP Interpretation: reviewed, normal General Appearance: cachetic Head: normocephalic, atraumatic Eyes: bilateral eye PERRL, bilateral eye EOMI ENT: dry mucus membranes Neck: full range of motion, supple Respiratory: lungs clear, normal breath sounds, no respiratory distress, no retraction Cardiovascular #1: regular rate, rhythm Gastrointestinal: other - Tender diffusely on palpation decreased bowel sounds Genitourinary: no CVA tenderness Musculoskeletal: other - Patient moving both upper extremities however decreased movement of lower extremities, Neurologic: responsive Skin: other - Appearance of the decubitus ulcer left anterior tibia blister formation on the right back lower leg, Lymphatic: no adenopathy Procedures Critical Care Time Critical Care Time 50 minutes for multiple reexaminations Critical findings concerning for life-threatening pathology, not including any procedural time Medical Decision Making Diagnostic Impression: Primary Impression: Severe sepsis Additional Impressions: UTI (urinary tract infection) Renal failure ER Course Patient's complex with multiple differentials considered Patient appears dehydrated An initial workup reveals a significant abnormalities including UTI with renal failure and concern of severe sepsis Patient has been aggressively I dehydrated with fluids with antibiotics as well At this time given the patient's findings unfortunately she is unstable for transfer Requires admission to a high level of care Labs Test 02/17/17 12:15 02/17/17 12:25 Urine Color Pale yellow Urine Appearance Slightly cloudy Urine pH 5 (4.5-8.0) Urine Specific [place] 1.015 (1.005-1.035) Urine Protein 2+ (NEGATIVE) Urine Glucose (UA) Negative (NEGATIVE) Urine Ketones 1+ (NEGATIVE) Urine Occult Blood 2+ (NEGATIVE) Urine Nitrite Positive (NEGATIVE) Urine Bilirubin Negative (NEGATIVE) Urine Urobilinogen Normal MG/DL (0.0-1.0) Urine Leukocyte Esterase 3+ (NEGATIVE) Urine RBC 5-10 /HPF (0 - 2) Urine WBC 60-80 /HPF (0 - 2) Urine Squamous Epithelial Cells Occasional /LPF Urine Bacteria Many /HPF (NONE) White Blood Count 8.4 K/UL (4.8-10.8) Red Blood Count 4.96 M/UL (4.20-5.40) Hemoglobin 13.9 G/DL (12.0-16.0) Hematocrit 45.5 % (37.0-47.0) Mean Corpuscular Volume 92 FL (80-99) Mean Corpuscular Hemoglobin 28.0 PG (27.0-31.0) Mean Corpuscular Hemoglobin Concent 30.5 G/DL (32.0-36.0) Red Cell Distribution Width 15.5 % (11.6-14.8) Platelet Count 220 K/UL (150-450) Mean Platelet Volume 7.7 FL (6.5-10.1) Neutrophils (%) (Auto) 81.1 % (45.0-75.0) Lymphocytes (%) (Auto) 12.7 % (20.0-45.0) Monocytes (%) (Auto) 5.0 % (1.0-10.0) Eosinophils (%) (Auto) 0.6 % (0.0-3.0) Basophils (%) (Auto) 0.6 % (0.0-2.0) Sodium Level 160 MMOL/L (136-145) Potassium Level 5.7 MMOL/L (3.5-5.1) Chloride Level 120 MMOL/L (98-107) Carbon Dioxide Level 18 MMOL/L (21-32) Anion Gap 22 mmol/L (5-15) Blood Urea Nitrogen 153 mg/dL (7-18) Creatinine 3.7 MG/DL (0.55-1.30) Estimat Glomerular Filtration Rate mL/min (>60) Glucose Level 186 MG/DL (74-106) Lactic Acid Level 2.90 mmol/L (0.66-2.22) Calcium Level 9.1 MG/DL (8.5-10.1) Total Bilirubin 0.3 MG/DL (0.2-1.0) Aspartate Amino Transf (AST/SGOT) 19 U/L (15-37) Alanine Aminotransferase (ALT/SGPT) 23 U/L (12-78) Alkaline Phosphatase 67 U/L (46-116) Total Creatine Kinase 110 U/L (26-308) Creatine Kinase MB 2.5 NG/ML (0.0-3.6) Creatine Kinase MB Relative Index 2.2 Troponin I 0.017 ng/mL (0.000-0.056) Total Protein 7.8 G/DL (6.4-8.2) Albumin 3.4 G/DL (3.4-5.0) Globulin 4.4 g/dL Albumin/Globulin Ratio 0.8 (1.0-2.7) Lipase 725 U/L (73-393) Rhythm Strip Diag. Results EP Interpretation: yes Rate: 66 Rhythm: NSR, no PVC's, no ectopy Chest X-Ray Diagnostic Results Chest X-Ray Diagnostic Results : Chest X-Ray Ordered: Yes # of Views/Limited/Complete: 1 View Indication: Shortness of Breath EP Interpretation: Yes Interpretation: no consolidation, no effusion, no pneumothorax, other - Nonspecific right upper along marking Impression: No acute disease Electronically Signed by: Alex Morris, DO CT/MRI/US Diagnostic Results CT/MRI/US Diagnostic Results : Impression CT abdomen pelvisImpression: Abnormal central low attenuation within the liver. Underlying mass may be present. Evaluation is limited as no IV contrast given. Fecal impaction. Ectopic right kidney. Normal appendix Suspicion of decubitus ulceration posterior to the sacrum. Please correlate clinically. Osteoporosis Atherosclerotic disease Last Vital Signs Date Time Temp Pulse Resp B/P (MAP) Pulse Ox O2 Delivery O2 Flow Rate FiO2 02/17/17 11:45 94 20 110/85 98 Room Air Status: improved Disposition: ADMITTED INPATIENT Condition: Critical Referrals: [facility],REFERRING (PCP) ALEX MORRIS D.O. Feb 17, 2017 12:33
[2017-02-17 12:44] LABS: BASOPHILS % (AUTO) 0.6 % (0.0-2.0); EOSINOPHILS % (AUTO) 0.6 % (0.0-3.0); HEMATOCRIT 45.5 % (37.0-47.0); HEMOGLOBIN 13.9 G/DL (12.0-16.0); LYMPHOCYTES % (AUTO) 12.7 % (20.0-45.0); MEAN CORPUSCULAR VOLUME 92 FL (80-99); NEUTROPHILS % (AUTO) 81.1 % (45.0-75.0); PLATELET COUNT 220 K/UL (150-450); RED BLOOD COUNT 4.96 M/UL (4.20-5.40); RED CELL DISTRIBUTION WIDTH 15.5 % (11.6-14.8); WHITE BLOOD COUNT 8.4 K/UL (4.8-10.8)
[2017-02-17 13:09] LABS: APPEARANCE,URINE SLIGHTLY CLOUDY; BILIRUBIN, URINE NEGATIVE (NEGATIVE); COLOR,URINE PALE YELLOW; GLUCOSE, URINE (UA) NEGATIVE (NEGATIVE); KETONES,URINE 1+ (NEGATIVE); LEUKOCYTE ESTERASE ,URINE 3+ (NEGATIVE); NITRITE,URINE POSITIVE (NEGATIVE); PH,URINE 5 (4.5-8.0); PROTEIN,URINE 2+ (NEGATIVE); UROBILINOGEN,URINE NORMAL MG/DL (0.0-1.0)
[2017-02-17 13:20] LABS: ALANINE AMINOTRANSFERASE 23 U/L (12-78); ALBUMIN 3.4 G/DL (3.4-5.0); ALBUMIN/GLOBULIN RATIO 0.8 (1.0-2.7); ALKALINE PHOSPHATASE 67 U/L (46-116); ANION GAP 22 mmol/L (5-15); ASPARTATE AMINO TRANSFERASE 19 U/L (15-37); BILIRUBIN,TOTAL 0.3 MG/DL (0.2-1.0); BLOOD UREA NITROGEN 153 mg/dL (7-18); CALCIUM 9.1 MG/DL (8.5-10.1); CARBON DIOXIDE 18 MMOL/L (21-32); CHLORIDE 120 MMOL/L (98-107); CKMB 2.5 NG/ML (0.0-3.6); CREATINE KINASE 110 U/L (26-308); CREATININE 3.7 MG/DL (0.55-1.30); POTASSIUM 5.7 MMOL/L (3.5-5.1); SODIUM 160 MMOL/L (136-145)
[2017-02-17] MEDS ORDERED: Zosyn 3.375gm/50ml Premix 50 ML IVPB STA (13:28)
--- NOTE | 2017-02-17 13:28 | Diagnostic Imaging Report ---
Indication: Abdominal pain Technique: Continuous helical transaxial imaging of the abdomen and pelvis was obtained from the lung bases to the pubic symphysis. No intravenous contrast was administered. Coronal 2-D reformats were also obtained. Total Dose length Product (DLP): [address] Dose Index Volume (CTDIvol): 2.15, 9.37 mGy Comparison: none Findings: The central aspect the liver shows a large area of low attenuation measuring 6-7 cm. This may be on the basis of an underlying mass but is not adequately evaluated on noncontrast imaging. The right kidney is ectopic and demonstrated in the right lower quadrant. There is a moderate to severe degree of stool retention in the colon which is distended. Aorta is moderately calcified. Bladder is nondistended. Uterus is present. Normal appendix noted. There is no evidence of bowel obstruction. There is no free fluid or free air. Subcutaneous reticulation demonstrated just posterior to the sacrum may be indicative of decubitus ulceration and disease. Please correlate clinically. The bones are osteopenic. Impression: Abnormal central low attenuation within the liver. Underlying mass may be present. Evaluation is limited as no IV contrast given. Fecal impaction. Ectopic right kidney. Normal appendix Suspicion of decubitus ulceration posterior to the sacrum. Please correlate clinically. Osteoporosis Atherosclerotic disease The CT scanner at [facility] [place] is accredited by the [employer] and the scans are performed using dose optimization techniques as appropriate to a performed exam including Automatic Exposure control.
[2017-02-17] MEDS ORDERED: Albuterol/Ipratropium 3ml neb HHN PRN (13:45)
[2017-02-17] MEDS ORDERED: Zolpidem 5mg tab ORAL PRN (13:45)
[2017-02-17] MEDS ORDERED: Mylanta II UD 30ml ORAL PRN (13:45)
[2017-02-17] MEDS ORDERED: Piperacillin/Tazobactam 3.375 GM in D5W 110 ML IVPB ONE (13:45)
[2017-02-17] MEDS ORDERED: Miralax 17gm pkt ORAL PRN (13:45)
[2017-02-17] MEDS ORDERED: Zosyn 3.375gm inj ONE (14:06)
--- NOTE | 2017-02-17 14:19 | Diagnostic Imaging Report ---
Indication: Dyspnea Comparison: 11/18/16 A single view chest radiograph was obtained. Findings: No definite infiltrate or pulmonary vascular congestion identified. The heart is normal in size. The aorta is mildly enlarged consistent with atherosclerotic vascular disease. The bones are osteopenic. Impression: No acute disease
[2017-02-17 15:20] VITALS: BP 88/42
[2017-02-17 15:26] VITALS: BP 112/61
[2017-02-17] MEDS: NovoLOG Insulin Flexpen SUBQ SCH ×2 (16:30→23:01)
[2017-02-17 20:00] VITALS: BP 97/57
[2017-02-17 20:07] LABS: ANION GAP 20 mmol/L (5-15); BLOOD UREA NITROGEN 143 mg/dL (7-18); CALCIUM 8.3 MG/DL (8.5-10.1); CARBON DIOXIDE 17 MMOL/L (21-32); CHLORIDE 125 MMOL/L (98-107); CREATININE 3.2 MG/DL (0.55-1.30); POTASSIUM 5.2 MMOL/L (3.5-5.1)
[2017-02-17 20:13] LABS: SODIUM 163 MMOL/L (136-145)
[2017-02-17] MEDS: Heparin 5000 units/ml inj SUBQ SCH (23:00)
[2017-02-18] VITALS: BP 99/59
[2017-02-18 04:00] VITALS: BP 103/73
[2017-02-18] MEDS: NovoLOG Insulin Flexpen SUBQ SCH ×4 (06:30→20:54)
[2017-02-18 06:35] LABS: BASOPHILS % (AUTO) 0.8 % (0.0-2.0); EOSINOPHILS % (AUTO) 1.3 % (0.0-3.0); HEMATOCRIT 43.4 % (37.0-47.0); HEMOGLOBIN 13.9 G/DL (12.0-16.0); LYMPHOCYTES % (AUTO) 25.4 % (20.0-45.0); MEAN CORPUSCULAR VOLUME 93 FL (80-99); NEUTROPHILS % (AUTO) 67.5 % (45.0-75.0); PLATELET COUNT 208 K/UL (150-450); RED BLOOD COUNT 4.67 M/UL (4.20-5.40); RED CELL DISTRIBUTION WIDTH 15.7 % (11.6-14.8); WHITE BLOOD COUNT 5.7 K/UL (4.8-10.8)
[2017-02-18 07:24] LABS: ALANINE AMINOTRANSFERASE 24 U/L (12-78); ALBUMIN 3.2 G/DL (3.4-5.0); ALBUMIN/GLOBULIN RATIO 0.7 (1.0-2.7); ALKALINE PHOSPHATASE 62 U/L (46-116); ANION GAP 21 mmol/L (5-15); ASPARTATE AMINO TRANSFERASE 19 U/L (15-37); BILIRUBIN,TOTAL 0.3 MG/DL (0.2-1.0); BLOOD UREA NITROGEN 114 mg/dL (7-18); CALCIUM 8.4 MG/DL (8.5-10.1); CARBON DIOXIDE 17 MMOL/L (21-32); CHLORIDE 127 MMOL/L (98-107); CHOLESTEROL 238 MG/DL (< 200); CREATININE 2.5 MG/DL (0.55-1.30); HDL CHOLESTEROL 44 MG/DL (40-60); POTASSIUM 4.5 MMOL/L (3.5-5.1); TRIGLYCERIDES 356 MG/DL (0-200)
[2017-02-18 07:27] LABS: SODIUM 166 MMOL/L (136-145)
[2017-02-18 08:00] VITALS: BP 115/54
--- NOTE | 2017-02-18 08:45 | Wound Care Consultation ---
Wound Assessment Wound Assessment #1: Wound Number: 1 Wound Present on Admission: Yes New Wound: No Status Change of Wound: No Wound Location Body Site Modif: right, lower, lateral Wound Location Body Site: leg Wound Type: blister - serous filled Meg Test: Does not Meg Wound Thickness: Partial Thickness Wound Length: 2.5 Wound Width: 3.0 Wound Depth: utd Percent of Wound [place]/Red: 100 Wound Drainage Amount: None Wound Drainage Odor: None/Absent Tissue Surrounding Wound: Erythemic - intact Wound General Appearance: Reddened Wound Assessment #2: Wound Number: 2 Wound Present on Admission: Yes New Wound: No Status Change of Wound: No Wound Location Body Site Modif: right, lower, lateral Wound Location Body Site: leg Wound Type: pressure ulcer Meg Test: Does not Meg Pressure Ulcer Stage: Deep Tissue Injury - suspected Wound Length: 2.0 Wound Width: 2.0 Wound Depth: utd Percent of Wound [place]/Red: 50 Percent of Wound Purple/Maroon: 50 Wound Drainage Amount: None Wound Drainage Odor: None/Absent Tissue Surrounding Wound: Intact Wound General Appearance: Reddened Wound Assessment #3: Wound Number: 3 Wound Present on Admission: Yes New Wound: No Status Change of Wound: No Wound Location Body Site Modif: left, lower, medial Wound Location Body Site: leg Wound Type: blister - blood filled blister noted with black scab. Meg Test: Does not Meg Wound Thickness: Full Thickness Wound Length: 4.0 Wound Width: 2.0 Wound Depth: utd Percent of Wound Black/Brown: 50 - black adhered necrotic scab Percent of Wound Purple/Maroon: 50 - blood filled Wound Drainage Amount: None Wound Drainage Odor: None/Absent Tissue Surrounding Wound: Erythemic Wound General Appearance: Reddened Wound Assessment #4: Wound Number: 4 Wound Present on Admission: Yes New Wound: No Status Change of Wound: No Wound Location Body Site: other - sacrococcygeal extending to left and right buttocks scattered Wound Type: pressure ulcer Meg Test: Does not Meg Pressure Ulcer Stage: Deep Tissue Injury Wound Thickness: Full Thickness Wound Length: 10.0 Wound Width: 20.0 Wound Depth: utd Percent of Wound Purple/Maroon: 100 Wound Drainage Amount: None Wound Drainage Odor: None/Absent Tissue Surrounding Wound: Erythemic - maroon Wound General Appearance: Reddened - maroon, at risk for further skin breakdown. Wound Assessment #5: Wound Number: 5 Wound Present on Admission: Yes New Wound: No Status Change of Wound: No Wound Location Body Site: sacral - extending to left and right buttocks scattered Wound Type: pressure ulcer Meg Test: Does not Meg Pressure Ulcer Stage: III Wound Thickness: Full Thickness Wound Length: 10.0 Wound Width: 20.0 Wound Depth: 0.3 Percent of Wound [place]/Red: 100 - scattered Wound Drainage Description: Serosanguineous Wound Drainage Amount: Moderate Wound Drainage Odor: None/Absent Tissue Surrounding Wound: Macerated - erythemic Wound General Appearance: Reddened, Draining Wound Comment #1 Right lateral lower leg serous filled blister. #2 Right lateral lower leg SDTI. #3 Left medial lower leg blood filled blister with black adhered scab. #4 Sacrococcygeal extending to left and right buttocks scattered Deep tissue injury. #5 Sacral extending to left and right buttocks scattered stage 3 pressure ulcer. Patient at risk for further skin breakdown. Recommendation. - APPLY LOW AIR LOSS SPR MATTRESS. - Local wound care as ordered. - Avoid shear and friction. - Optimize nutrition. - Turn and reposition. - Keep clean and dry. - Offload affected sacral area. - Offload heels and feet. - Apply heel protectors for skin prevention. -Assess and notify for any further changes of condition to skin noted. ANIL MORROW Feb 18, 2017 08:45
--- NOTE | 2017-02-18 08:45 | Wound Care Consultation ---
Wound Assessment Wound Assessment #1: Wound Number: 1 Wound Present on Admission: Yes New Wound: No Status Change of Wound: No Wound Location Body Site Modif: right, lower, lateral Wound Location Body Site: leg Wound Type: blister - serous filled Meg Test: Does not Meg Wound Thickness: Partial Thickness Wound Length: 2.5 Wound Width: 3.0 Wound Depth: utd Percent of Wound [place]/Red: 100 Wound Drainage Amount: None Wound Drainage Odor: None/Absent Tissue Surrounding Wound: Erythemic - intact Wound General Appearance: Reddened Wound Assessment #2: Wound Number: 2 Wound Present on Admission: Yes New Wound: No Status Change of Wound: No Wound Location Body Site Modif: right, lower, lateral Wound Location Body Site: leg Wound Type: pressure ulcer Meg Test: Does not Meg Pressure Ulcer Stage: Deep Tissue Injury - suspected Wound Length: 2.0 Wound Width: 2.0 Wound Depth: utd Percent of Wound Pump Back/Red: 50 Percent of Wound Purple/Maroon: 50 Wound Drainage Amount: None Wound Drainage Odor: None/Absent Tissue Surrounding Wound: Intact Wound General Appearance: Reddened Wound Assessment #3: Wound Number: 3 Wound Present on Admission: Yes New Wound: No Status Change of Wound: No Wound Location Body Site Modif: left, lower, medial Wound Location Body Site: leg Wound Type: blister - blood filled blister noted with black scab. Meg Test: Does not Meg Wound Thickness: Full Thickness Wound Length: 4.0 Wound Width: 2.0 Wound Depth: utd Percent of Wound Black/Brown: 50 - black adhered necrotic scab Percent of Wound Purple/Maroon: 50 - blood filled Wound Drainage Amount: None Wound Drainage Odor: None/Absent Tissue Surrounding Wound: Erythemic Wound General Appearance: Reddened Wound Assessment #4: Wound Number: 4 Wound Present on Admission: Yes New Wound: No Status Change of Wound: No Wound Location Body Site: other - sacrococcygeal extending to left and right buttocks scattered Wound Type: pressure ulcer Meg Test: Does not Meg Pressure Ulcer Stage: Deep Tissue Injury Wound Thickness: Full Thickness Wound Length: 10.0 Wound Width: 20.0 Wound Depth: utd Percent of Wound Purple/Maroon: 100 Wound Drainage Amount: None Wound Drainage Odor: None/Absent Tissue Surrounding Wound: Erythemic - maroon Wound General Appearance: Reddened - maroon, at risk for further skin breakdown. Wound Assessment #5: Wound Number: 5 Wound Present on Admission: Yes New Wound: No Status Change of Wound: No Wound Location Body Site: sacral - extending to left and right buttocks scattered Wound Type: pressure ulcer Meg Test: Does not Meg Pressure Ulcer Stage: III Wound Thickness: Full Thickness Wound Length: 10.0 Wound Width: 20.0 Wound Depth: 0.3 Percent of Wound Pump Back/Red: 100 - scattered Wound Drainage Description: Serosanguineous Wound Drainage Amount: Moderate Wound Drainage Odor: None/Absent Tissue Surrounding Wound: Macerated - erythemic Wound General Appearance: Reddened, Draining Wound Comment #1 Right lateral lower leg serous filled blister. #2 Right lateral lower leg SDTI. #3 Left medial lower leg blood filled blister with black adhered scab. #4 Sacrococcygeal extending to left and right buttocks scattered Deep tissue injury. #5 Sacral extending to left and right buttocks scattered stage 3 pressure ulcer. Patient at risk for further skin breakdown. Recommendation. - APPLY LOW AIR LOSS SPR MATTRESS. - Local wound care as ordered. - Avoid shear and friction. - Optimize nutrition. - Turn and reposition. - Keep clean and dry. - Offload affected sacral area. - Offload heels and feet. - Apply heel protectors for skin prevention. -Assess and notify for any further changes of condition to skin noted. ANIL MORROW Feb 18, 2017 08:45
--- NOTE | 2017-02-18 08:45 | Wound Care Consultation ---
Wound Assessment Wound Assessment #1: Wound Number: 1 Wound Present on Admission: Yes New Wound: No Status Change of Wound: No Wound Location Body Site Modif: right, lower, lateral Wound Location Body Site: leg Wound Type: blister - serous filled Meg Test: Does not Meg Wound Thickness: Partial Thickness Wound Length: 2.5 Wound Width: 3.0 Wound Depth: utd Percent of Wound [place]/Red: 100 Wound Drainage Amount: None Wound Drainage Odor: None/Absent Tissue Surrounding Wound: Erythemic - intact Wound General Appearance: Reddened Wound Assessment #2: Wound Number: 2 Wound Present on Admission: Yes New Wound: No Status Change of Wound: No Wound Location Body Site Modif: right, lower, lateral Wound Location Body Site: leg Wound Type: pressure ulcer Meg Test: Does not Meg Pressure Ulcer Stage: Deep Tissue Injury - suspected Wound Length: 2.0 Wound Width: 2.0 Wound Depth: utd Percent of Wound [place]/Red: 50 Percent of Wound Purple/Maroon: 50 Wound Drainage Amount: None Wound Drainage Odor: None/Absent Tissue Surrounding Wound: Intact Wound General Appearance: Reddened Wound Assessment #3: Wound Number: 3 Wound Present on Admission: Yes New Wound: No Status Change of Wound: No Wound Location Body Site Modif: left, lower, medial Wound Location Body Site: leg Wound Type: blister - blood filled blister noted with black scab. Meg Test: Does not Meg Wound Thickness: Full Thickness Wound Length: 4.0 Wound Width: 2.0 Wound Depth: utd Percent of Wound Black/Brown: 50 - black adhered necrotic scab Percent of Wound Purple/Maroon: 50 - blood filled Wound Drainage Amount: None Wound Drainage Odor: None/Absent Tissue Surrounding Wound: Erythemic Wound General Appearance: Reddened Wound Assessment #4: Wound Number: 4 Wound Present on Admission: Yes New Wound: No Status Change of Wound: No Wound Location Body Site: other - sacrococcygeal extending to left and right buttocks scattered Wound Type: pressure ulcer Meg Test: Does not Meg Pressure Ulcer Stage: Deep Tissue Injury Wound Thickness: Full Thickness Wound Length: 10.0 Wound Width: 20.0 Wound Depth: utd Percent of Wound Purple/Maroon: 100 Wound Drainage Amount: None Wound Drainage Odor: None/Absent Tissue Surrounding Wound: Erythemic - maroon Wound General Appearance: Reddened - maroon, at risk for further skin breakdown. Wound Assessment #5: Wound Number: 5 Wound Present on Admission: Yes New Wound: No Status Change of Wound: No Wound Location Body Site: sacral - extending to left and right buttocks scattered Wound Type: pressure ulcer Meg Test: Does not Meg Pressure Ulcer Stage: III Wound Thickness: Full Thickness Wound Length: 10.0 Wound Width: 20.0 Wound Depth: 0.3 Percent of Wound [place]/Red: 100 - scattered Wound Drainage Description: Serosanguineous Wound Drainage Amount: Moderate Wound Drainage Odor: None/Absent Tissue Surrounding Wound: Macerated - erythemic Wound General Appearance: Reddened, Draining Wound Comment #1 Right lateral lower leg serous filled blister. #2 Right lateral lower leg SDTI. #3 Left medial lower leg blood filled blister with black adhered scab. #4 Sacrococcygeal extending to left and right buttocks scattered Deep tissue injury. #5 Sacral extending to left and right buttocks scattered stage 3 pressure ulcer. Patient at risk for further skin breakdown. Recommendation. - APPLY LOW AIR LOSS SPR MATTRESS. - Local wound care as ordered. - Avoid shear and friction. - Optimize nutrition. - Turn and reposition. - Keep clean and dry. - Offload affected sacral area. - Offload heels and feet. - Apply heel protectors for skin prevention. -Assess and notify for any further changes of condition to skin noted. ANIL MORROW Feb 18, 2017 08:45
[2017-02-18] MEDS ORDERED: PARoxetine 10mg tab ORAL SCH (09:00)
[2017-02-18] MEDS: Heparin 5000 units/ml inj SUBQ SCH ×2 (09:12→20:54)
--- NOTE | 2017-02-18 12:33 | Consultation ---
Consult Note Consult Note asked to eval for renal failure- Patient presents with family and paramedics were reports of change in mental status Patient has underlying Alzheimer's dementia over the past 4-5 days patient has been more weak less responsive she has not been eating as well Appears uncomfortable with any touch to the legs and arms Unknown regarding fever family reports one bowel movement per week and her last bowel movement was last week No reports of vomiting There was 2 lesions on the skin the one on the left lower leg and right leg examined - data reviewed Assessment/Plan status; Acute renal failure Dehydration acute on chronic ( Alzheimer dementia) encephalopathy likely 2 to UTI UTI / sepsis DM, mixed hyperlipidemia obstipation Hx of HTN hx of ischemic CVA end stage Alzheimer dementia risk for silent aspiration Plan : Hydrate- D5w K and Phos and Mag supplement as needed monitor renal parameters- antibiotics per orders NAYE DAY Feb 18, 2017 12:33
[2017-02-18 12:57] VITALS: BP 115/59
--- NOTE | 2017-02-18 15:17 | Cardiology Report ---
APPROVED REPORT EKG Measurement Heart [id number] Normal sinus rhythm with sinus arrhythmia Nonspecific T wave abnormality Prolonged QT Abnormal ECG
--- NOTE | 2017-02-18 15:17 | Cardiology Report ---
APPROVED REPORT EKG Measurement Heart [id number] Normal sinus rhythm with sinus arrhythmia Nonspecific T wave abnormality Prolonged QT Abnormal ECG
--- NOTE | 2017-02-18 15:17 | Cardiology Report ---
APPROVED REPORT EKG Measurement Heart [id number] ID [id number] Normal sinus rhythm with sinus arrhythmia Nonspecific T wave abnormality Prolonged QT Abnormal ECG
--- NOTE | 2017-02-18 15:25 | History and Physical ---
History of Present Illness General Date patient seen: Feb 18, 2017 Reason for Hospitalization: Generalized Weakness Present Illness HPI 82 year old female with hx of dementia, Blind, bed bound, brought in by paramedics with CC of change in mental status Over the past 4-5 days patient has been weaker less responsive and she has not been eating as well Pt was found to be in renal failure and admitted to [facility] (formerly [facility]3] for possible sepsis. Allergies: Coded Allergies: Potato (Unverified Allergy, Unknown, 12/26/16) Medication History Scheduled Amoxicillin* (Amoxil*), 500 MG ORAL BID Aspirin* (Aspir 81*), 81 MG ORAL DAILY, (Reported) Aspirin* (Aspir 81*), 81 MG ORAL DAILY, (Reported) Atorvastatin Calcium* (Atorvastatin Calcium*), 20 MG ORAL BEDTIME, (Reported) Cholecalciferol (Vitamin D3) (Vitamin D-400*), 400 UNITS ORAL DAILY, (Reported) Clopidogrel Bisulfate* (Plavix*), 75 MG ORAL DAILY, (Reported) Donepezil Hcl* (Donepezil Hcl*), 5 MG ORAL DAILY, (Reported) Donepezil Hcl* (Donepezil Hcl*), 5 MG ORAL DAILY, (Reported) Furosemide* (Lasix*), 20 MG ORAL DAILY, (Reported) Glimepiride* (Glimepiride*), 4 MG ORAL BIDAC, (Reported) Glimepiride* (Glimepiride*), 4 MG ORAL BEFORE BREAKFAST, (Reported) Insulin Aspart (Novolog Flexpen), 5 UNITS SUBQ BEFORE MEALS AND HS Insulin Detemir (Levemir Flexpen), 5 UNITS SUBQ DAILY Losartan Potassium* (Losartan Potassium*), 25 MG ORAL DAILY, (Reported) Megestrol Acetate (Megestrol Acetate), 20 MG ORAL DAILY, (Reported) Memantine Hcl* (Namenda*), 10 MG ORAL BID, (Reported) Memantine Hcl* (Namenda*), 10 MG ORAL DAILY, (Reported) Metformin Hcl* (Metformin Hcl*), 1,000 MG ORAL BID, (Reported) Metformin Hcl* (Metformin Hcl*), 1,000 MG ORAL BID, (Reported) Pantoprazole* (Pantoprazole*), 40 MG ORAL DAILY, (Reported) Paroxetine Hcl* (Paxil*), 10 MG ORAL DAILY, (Reported) Paroxetine Hcl* (Paxil*), 10 MG ORAL DAILY, (Reported) Pravastatin Sod* (Pravastatin Sod*), 20 MG ORAL BEDTIME, (Reported) Scheduled PRN Zolpidem Tartrate* (Zolpidem Tartrate*), 10 MG ORAL BEDTIME PRN for Insomnia, ( Reported) Patient History Healthcare decision maker bree garnica Resuscitation status Full Code Advanced Directive on File No Past Medical/Surgical History Past Medical/Surgical History: (1) Alzheimer's dementia (2) Diabetes mellitus Review of Systems All Other Systems: negative except mentioned in HPI Physical Exam General Appearance: WD/WN Lines, tubes and drains: peripheral, central line HEENT: normocephalic, atraumatic Neck: non-tender, normal alignment Respiratory/Chest: chest wall non-tender, lungs clear, normal breath sounds Breasts: no masses Cardiovascular/Chest: normal peripheral pulses, normal rate Abdomen: normal bowel sounds, non tender Genitourinary/Rectal: normal genital exam Extremities: normal range of motion Skin Exam: normal pigmentation Last 24 Hour Vital Signs Date Time Temp Pulse Resp B/P (MAP) Pulse Ox O2 Delivery O2 Flow Rate FiO2 02/18/17 12:57 97.2 70 18 115/59 Room Air 81 02/18/17 12:00 62 02/18/17 08:00 77 02/18/17 08:00 97.2 91 16 115/54 92 Room Air 02/18/17 07:59 64 20 Room Air 21 02/18/17 04:00 97.2 69 16 103/73 96 Room Air 02/18/17 04:00 68 02/18/17 00:00 62 02/18/17 00:00 97.0 53 18 99/59 95 Room Air 02/17/17 21:00 62 02/17/17 20:03 74 20 Room Air 21 02/17/17 20:00 97.0 66 16 97/57 95 Room Air 02/17/17 16:00 74 02/17/17 15:43 97.9 78 22 112/61 98 Room Air 02/17/17 15:26 97.9 78 22 112/61 98 Room Air Intake and Output 02/18/17 02/19/17 19:00 07:00 Intake Total 650 ml Balance 650 ml IV Total 650 ml Laboratory Tests Test 02/17/17 18:35 11/1/17 05:50 02/18/17 09:00 02/18/17 10:30 Sodium Level 163 MMOL/L (136-145) *H 166 MMOL/L (136-145) *H Potassium Level 5.2 MMOL/L (3.5-5.1) H 4.5 MMOL/L (3.5-5.1) Chloride Level 125 MMOL/L (98-107) H 127 MMOL/L (98-107) H Carbon Dioxide Level 17 MMOL/L (21-32) L 17 MMOL/L (21-32) L Anion Gap 20 mmol/L (5-15) H 21 mmol/L (5-15) H Blood Urea Nitrogen 143 mg/dL (7-18) H 114 mg/dL (7-18) H Creatinine 3.2 MG/DL (0.55-1.30) H 2.5 MG/DL (0.55-1.30) H Estimat Glomerular Filtration Rate mL/min (>60) mL/min (>60) Glucose Level 126 MG/DL (74-106) H 70 MG/DL (74-106) L Calcium Level 8.3 MG/DL (8.5-10.1) L 8.4 MG/DL (8.5-10.1) L White Blood Count 5.7 K/UL (4.8-10.8) Red Blood Count 4.67 M/UL (4.20-5.40) Hemoglobin 13.9 G/DL (12.0-16.0) Hematocrit 43.4 % (37.0-47.0) Mean Corpuscular Volume 93 FL (80-99) Mean Corpuscular Hemoglobin 29.8 PG (27.0-31.0) Mean Corpuscular Hemoglobin Concent 32.0 G/DL (32.0-36.0) Red Cell Distribution Width 15.7 % (11.6-14.8) H Platelet Count 208 K/UL (150-450) Mean Platelet Volume 7.5 FL (6.5-10.1) Neutrophils (%) (Auto) 67.5 % (45.0-75.0) Lymphocytes (%) (Auto) 25.4 % (20.0-45.0) Monocytes (%) (Auto) 5.0 % (1.0-10.0) Eosinophils (%) (Auto) 1.3 % (0.0-3.0) Basophils (%) (Auto) 0.8 % (0.0-2.0) Hemoglobin A1c 6.9 % (4.3-6.0) H Total Bilirubin 0.3 MG/DL (0.2-1.0) Aspartate Amino Transf (AST/SGOT) 19 U/L (15-37) Alanine Aminotransferase (ALT/SGPT) 24 U/L (12-78) Alkaline Phosphatase 62 U/L (46-116) Total Protein 7.6 G/DL (6.4-8.2) Albumin 3.2 G/DL (3.4-5.0) L Globulin 4.4 g/dL Albumin/Globulin Ratio 0.7 (1.0-2.7) L Triglycerides Level 356 MG/DL (0-200) H Cholesterol Level 238 MG/DL (< 200) H LDL Cholesterol 148 mg/dL (<100) H HDL Cholesterol 44 MG/DL (40-60) Cholesterol/HDL Ratio 5.4 (3.3-4.4) H Thyroid Stimulating Hormone (TSH) 0.451 uiU/mL (0.360-3.740) Lactic Acid Level 1.90 mmol/L (0.66-2.22) Urine Random Sodium 42 MEQ/L (20-110) Height (Feet): 5 Height (Inches): 4.00 Weight (Pounds): 135 Medications Current Medications Medications (Trade) Dose Ordered Sig/Ninfa Route PRN Reason Start Time Stop Time Status Last Admin Dose Admin Acetaminophen (Tylenol) 650 mg Q4H PRN ORAL temp>100.5F 02/17/17 13:45 03/19/17 13:44 Albuterol/ Ipratropium (Albuterol/ Ipratropium) 3 ml Q6H PRN HHN dyspnea 02/17/17 13:45 02/22/17 13:44 Aspirin (Ecotrin) 81 mg DAILY ORAL 02/19/17 09:00 03/21/17 08:59 Atorvastatin Calcium (Lipitor) 10 mg BEDTIME ORAL 02/18/17 21:00 03/20/17 20:59 Clonidine HCl (Catapres) 0.1 mg Q4H PRN ORAL For High Blood Pressure 02/17/17 13:45 03/19/17 13:44 Clopidogrel Bisulfate (Plavix) 75 mg DAILY ORAL 02/19/17 09:00 03/21/17 08:59 Dextrose 1,000 ml @ 150 mls/hr Q6H40M IV 02/18/17 16:00 03/20/17 15:59 02/18/17 15:11 Dextrose (Dextrose 50%) STAT PRN IV Hypoglycemia 02/17/17 13:45 03/19/17 13:44 Fish Oil (Fish Oil) 1,000 mg BID ORAL 02/18/17 18:00 03/20/17 17:59 Heparin Sodium (Porcine) (Heparin 5000 units/ml) 5,000 units EVERY 12 HOURS SUBQ 02/17/17 21:00 03/19/17 20:59 02/18/17 09:12 Insulin Aspart (NovoLOG) BEFORE MEALS AND HS SUBQ 02/17/17 16:30 03/19/17 16:29 02/18/17 11:29 Ondansetron HCl (Zofran) 4 mg Q6H PRN IVP Nausea & Vomiting 02/17/17 13:45 03/19/17 13:44 Pantoprazole (Protonix) 40 mg DAILY ORAL 02/19/17 09:00 03/21/17 08:59 Polyethylene Glycol (Miralax) 17 gm HSPRN PRN ORAL Constipation 02/17/17 13:45 03/19/17 13:44 Pravastatin Sodium (Pravachol) 20 mg BEDTIME ORAL 02/18/17 21:00 03/20/17 20:59 UNV Zolpidem Tartrate (Ambien) 5 mg HSPRN PRN ORAL Insomnia 02/17/17 13:45 02/24/17 13:44 Assessment/Plan Problem List: (1) Severe sepsis ICD Codes: A41.9 - Sepsis, unspecified organism; R65.20 - Severe sepsis without septic shock SNOMED: 42711314 (2) Acute encephalopathy ICD Codes: G93.40 - Encephalopathy, unspecified SNOMED: 5947313 (3) ATN (acute tubular necrosis) ICD Codes: N17.0 - Acute kidney failure with tubular necrosis SNOMED: 08041502 (4) Alzheimer's dementia ICD Codes: G30.9 - Alzheimer's disease, unspecified SNOMED: 42310304 (5) Diabetes mellitus ICD Codes: E11.9 - Type 2 diabetes mellitus without complications SNOMED: 32668915 Assessment/Plan IV fluids IV abx check urine cultures check electrolytes RHONA BOJORQUEZ Feb 18, 2017 15:25
[2017-02-18 16:00] VITALS: BP 99/58
[2017-02-18 20:00] VITALS: BP 99/50
[2017-02-18] MEDS ORDERED: Albuterol/Ipratropium 3ml neb HHN PRN (23:14)
[2017-02-18] MEDS ORDERED: Zolpidem 5mg tab ORAL PRN (23:16)
[2017-02-18] MEDS ORDERED: Miralax 17gm pkt ORAL PRN (23:16)
[2017-02-19] VITALS: BP 119/84
[2017-02-19 04:00] VITALS: BP 104/51
[2017-02-19] MEDS: NovoLOG Insulin Flexpen SUBQ SCH ×4 (07:47→21:14)
[2017-02-19 08:17] VITALS: BP 113/58
[2017-02-19] MEDS ORDERED: Aspirin EC 81mg tab ORAL SCH (09:00)
[2017-02-19 09:56] LABS: ALANINE AMINOTRANSFERASE 19 U/L (12-78); ALBUMIN 2.9 G/DL (3.4-5.0); ALBUMIN/GLOBULIN RATIO 0.8 (1.0-2.7); ALKALINE PHOSPHATASE 56 U/L (46-116); ANION GAP 11 mmol/L (5-15); ASPARTATE AMINO TRANSFERASE 19 U/L (15-37); BILIRUBIN,TOTAL 0.3 MG/DL (0.2-1.0); BLOOD UREA NITROGEN 70 mg/dL (7-18); CALCIUM 7.8 MG/DL (8.5-10.1); CARBON DIOXIDE 21 MMOL/L (21-32); CHLORIDE 117 MMOL/L (98-107); CREATININE 1.8 MG/DL (0.55-1.30); PHOSPHORUS 1.9 MG/DL (2.5-4.9); POTASSIUM 3.8 MMOL/L (3.5-5.1); SODIUM 149 MMOL/L (136-145)
[2017-02-19] MEDS: Aspirin EC 81mg tab ORAL SCH (11:37)
[2017-02-19 11:40] VITALS: BP 143/48
[2017-02-19] MEDS: Heparin 5000 units/ml inj SUBQ SCH ×2 (11:40→21:14)
[2017-02-19] MEDS ORDERED: Potassium Phosphate 20 MM in NS 275 ML IV ONE (13:00)
--- NOTE | 2017-02-19 13:27 | Consultation ---
Consult Note Consult Note ID DIC # [id number] SAVITA RENE M.D. Feb 19, 2017 13:27
--- NOTE | 2017-02-19 13:27 | Consultation ---
Consult Note Consult Note ID DIC # [id number] SAVITA RENE M.D. Feb 19, 2017 13:27
--- NOTE | 2017-02-19 13:27 | Consultation ---
Consult Note Consult Note ID DIC # [id number] SAVITA RENE M.D. Feb 19, 2017 13:27
[2017-02-19 16:00] VITALS: BP 109/54
--- NOTE | 2017-02-19 17:51 | Pulmonology Progress Note ---
Assessment/Plan Problems: (1) Severe sepsis (2) Acute encephalopathy (3) ATN (acute tubular necrosis) (4) Alzheimer's dementia (5) Diabetes mellitus Assessment/Plan bun/creatinine decreasing PHos supplement sliding scale check electrolytes continue abx Subjective ROS Limited/Unobtainable: No Constitutional: Reports: no symptoms HEENT: Repors: no symptoms Allergies: Coded Allergies: Potato (Unverified Allergy, Unknown, 12/26/16) Objective Last 24 Hour Vital Signs Date Time Temp Pulse Resp B/P (MAP) Pulse Ox O2 Delivery O2 Flow Rate FiO2 02/19/17 16:00 97.7 67 20 109/54 98 Room Air 02/19/17 11:40 97.5 92 20 143/48 95 Room Air 02/19/17 08:26 63 18 Room Air 02/19/17 08:17 97.5 63 21 113/58 96 Room Air 02/19/17 04:00 97.3 57 18 104/51 100 Room Air 02/19/17 00:00 97.0 60 20 119/84 96 Room Air 02/18/17 20:00 97.5 66 20 99/50 95 Room Air 02/18/17 19:53 71 18 Room Air Intake and Output 02/19/17 02/20/17 19:00 07:00 Intake Total 240 ml Balance 240 ml Intake Oral 240 ml General Appearance: cachetic HEENT: normocephalic, atraumatic Respiratory/Chest: chest wall non-tender, lungs clear Cardiovascular: normal peripheral pulses, normal rate Abdomen: normal bowel sounds, no organomegaly Extremities: no cyanosis Skin: no rash 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 Microbiology Date/Time Source Procedure Growth Status 02/17/17 12:10 Blood Blood Culture - Preliminary NO GROWTH AFTER 24 HOURS Resulted 02/17/17 12:10 Blood Blood Culture - Preliminary NO GROWTH AFTER 24 HOURS Resulted 02/17/17 12:15 Urine,Clean Catch Urine Culture - Preliminary Klebsiella Pneumoniae Esbl Resulted 02/18/17 00:40 Buttock Right Gram Stain - Final Resulted 02/18/17 00:40 Wound Culture - Preliminary Gram Positive Cocci Resulted Laboratory Tests 02/19/17 09:20: Sodium Level 149H, Potassium Level 3.8, Chloride Level 117H, Carbon Dioxide Level 21, Anion Gap 11, Blood Urea Nitrogen 70H, Creatinine 1.8H, Estimat Glomerular Filtration Rate , Glucose Level 117H, Uric Acid 7.3H, Calcium Level 7.8L, Phosphorus Level 1.9L, Magnesium Level 0.9*L, Total Bilirubin 0.3, Aspartate Amino Transf (AST/SGOT) 19, Alanine Aminotransferase (ALT/SGPT) 19, Alkaline Phosphatase 56, Total Protein 6.6, Albumin 2.9L, Globulin 3.7, Albumin/ Globulin Ratio 0.8L Current Medications Medications (Trade) Dose Ordered Sig/Ninfa Route PRN Reason Start Time Stop Time Status Last Admin Dose Admin Acetaminophen (Tylenol) 650 mg Q4H PRN ORAL temp>100.5F 02/18/17 23:12 03/20/17 23:11 Albuterol/ Ipratropium (Albuterol/ Ipratropium) 3 ml Q6H PRN HHN dyspnea 02/18/17 23:14 02/23/17 23:13 Aspirin (Ecotrin) 81 mg DAILY ORAL 02/19/17 09:00 03/21/17 08:59 02/19/17 11:37 Atorvastatin Calcium (Lipitor) 10 mg BEDTIME ORAL 02/19/17 21:00 03/20/17 20:59 Clonidine HCl (Catapres) 0.1 mg Q4H PRN ORAL For High Blood Pressure 02/18/17 23:12 03/20/17 23:11 Clopidogrel Bisulfate (Plavix) 75 mg DAILY ORAL 02/19/17 09:00 03/21/17 08:59 02/19/17 11:37 Dextrose 1,000 ml @ 150 mls/hr Q6H40M IV 02/18/17 23:30 03/20/17 23:29 02/19/17 13:43 Dextrose (Dextrose 50%) STAT PRN IV Hypoglycemia 02/18/17 23:13 03/20/17 23:12 Fish Oil (Fish Oil) 1,000 mg BID ORAL 02/19/17 09:00 03/20/17 17:59 02/19/17 17:20 Heparin Sodium (Porcine) (Heparin 5000 units/ml) 5,000 units EVERY 12 HOURS SUBQ 02/19/17 09:00 03/19/17 20:59 02/19/17 11:40 Insulin Aspart (NovoLOG) BEFORE MEALS AND HS SUBQ 11/2/17 06:30 03/19/17 16:29 02/19/17 17:06 Ondansetron HCl (Zofran) 4 mg Q6H PRN IVP Nausea & Vomiting 02/18/17 23:16 03/20/17 23:15 Pantoprazole (Protonix) 40 mg DAILY ORAL 02/19/17 09:00 03/21/17 08:59 02/19/17 11:38 Polyethylene Glycol (Miralax) 17 gm HSPRN PRN ORAL Constipation 02/18/17 23:16 03/20/17 23:15 Potassium Phosphate 20 mm/ Sodium Chloride 281.6667 ml @ 46.944 m... ONCE ONCE IV 02/19/17 13:00 02/19/17 18:59 02/19/17 13:43 Zolpidem Tartrate (Ambien) 5 mg HSPRN PRN ORAL Insomnia 02/18/17 23:16 02/25/17 23:15 RHONA BOJORQUEZ Feb 19, 2017 17:51
--- NOTE | 2017-02-19 18:10 | Consultation ---
History of Present Illness General Date patient seen: Feb 18, 2017 Chief Complaint: Generalized Weakness Present Illness HPI 82 year old female with hx of dementia, Blind, bed bound, brought in by paramedics with CC of change in mental status. In addition, the patient has been weaker less responsive and she has not been eating. The family at beside. the pt has a history if depression and dementia and has been on paxil/ the paxil has been stopped in hospital. the pt is pw waxing and waning of consciousness and not engaged Allergies: Coded Allergies: Potato (Unverified Allergy, Unknown, 12/26/16) Medication History Scheduled Amoxicillin* (Amoxil*), 500 MG ORAL BID Aspirin* (Aspir 81*), 81 MG ORAL DAILY, (Reported) Aspirin* (Aspir 81*), 81 MG ORAL DAILY, (Reported) Atorvastatin Calcium* (Atorvastatin Calcium*), 20 MG ORAL BEDTIME, (Reported) Cholecalciferol (Vitamin D3) (Vitamin D-400*), 400 UNITS ORAL DAILY, (Reported) Clopidogrel Bisulfate* (Plavix*), 75 MG ORAL DAILY, (Reported) Donepezil Hcl* (Donepezil Hcl*), 5 MG ORAL DAILY, (Reported) Donepezil Hcl* (Donepezil Hcl*), 5 MG ORAL DAILY, (Reported) Furosemide* (Lasix*), 20 MG ORAL DAILY, (Reported) Glimepiride* (Glimepiride*), 4 MG ORAL BIDAC, (Reported) Glimepiride* (Glimepiride*), 4 MG ORAL BEFORE BREAKFAST, (Reported) Insulin Aspart (Novolog Flexpen), 5 UNITS SUBQ BEFORE MEALS AND HS Insulin Detemir (Levemir Flexpen), 5 UNITS SUBQ DAILY Losartan Potassium* (Losartan Potassium*), 25 MG ORAL DAILY, (Reported) Megestrol Acetate (Megestrol Acetate), 20 MG ORAL DAILY, (Reported) Memantine Hcl* (Namenda*), 10 MG ORAL BID, (Reported) Memantine Hcl* (Namenda*), 10 MG ORAL DAILY, (Reported) Metformin Hcl* (Metformin Hcl*), 1,000 MG ORAL BID, (Reported) Metformin Hcl* (Metformin Hcl*), 1,000 MG ORAL BID, (Reported) Pantoprazole* (Pantoprazole*), 40 MG ORAL DAILY, (Reported) Paroxetine Hcl* (Paxil*), 10 MG ORAL DAILY, (Reported) Paroxetine Hcl* (Paxil*), 10 MG ORAL DAILY, (Reported) Pravastatin Sod* (Pravastatin Sod*), 20 MG ORAL BEDTIME, (Reported) Scheduled PRN Zolpidem Tartrate* (Zolpidem Tartrate*), 10 MG ORAL BEDTIME PRN for Insomnia, ( Reported) Patient History History Provided By: Patient, Medical Record, PMD Healthcare decision maker bree garnica Resuscitation status Full Code Advanced Directive on File No Past Medical/Surgical History Past Medical/Surgical History: (1) DKA (diabetic ketoacidoses) (2) Altered level of consciousness (3) Altered mental status (4) Hyperglycemia (5) Uncontrolled diabetes mellitus (6) Renal failure (7) UTI (urinary tract infection) (8) Severe sepsis (9) Diabetes mellitus (10) Alzheimer's dementia (11) ATN (acute tubular necrosis) (12) Acute encephalopathy Review of Systems Psychiatric: Reports: prior hx, anxiety, depressed feelings Physical Exam General Appearance: confused Neurologic: disoriented, unresponsiveness, depressed affect Last 24 Hour Vital Signs Date Time Temp Pulse Resp B/P (MAP) Pulse Ox O2 Delivery O2 Flow Rate FiO2 02/19/17 16:00 97.7 67 20 109/54 98 Room Air 02/19/17 11:40 97.5 92 20 143/48 95 Room Air 02/19/17 08:26 63 18 Room Air 02/19/17 08:17 97.5 63 21 113/58 96 Room Air 02/19/17 04:00 97.3 57 18 104/51 100 Room Air 02/19/17 00:00 97.0 60 20 119/84 96 Room Air 02/18/17 20:00 97.5 66 20 99/50 95 Room Air 02/18/17 19:53 71 18 Room Air Intake and Output 02/19/17 02/20/17 19:00 07:00 Intake Total 240 ml Balance 240 ml Intake Oral 240 ml Laboratory Tests Test 02/19/17 09:20 Sodium Level 149 MMOL/L (136-145) H Potassium Level 3.8 MMOL/L (3.5-5.1) Chloride Level 117 MMOL/L (98-107) H Carbon Dioxide Level 21 MMOL/L (21-32) Anion Gap 11 mmol/L (5-15) Blood Urea Nitrogen 70 mg/dL (7-18) H Creatinine 1.8 MG/DL (0.55-1.30) H Estimat Glomerular Filtration Rate mL/min (>60) Glucose Level 117 MG/DL (74-106) H Uric Acid 7.3 MG/DL (2.6-7.2) H Calcium Level 7.8 MG/DL (8.5-10.1) L Phosphorus Level 1.9 MG/DL (2.5-4.9) L Magnesium Level 0.9 MG/DL (1.8-2.4) *L Total Bilirubin 0.3 MG/DL (0.2-1.0) Aspartate Amino Transf (AST/SGOT) 19 U/L (15-37) Alanine Aminotransferase (ALT/SGPT) 19 U/L (12-78) Alkaline Phosphatase 56 U/L (46-116) Total Protein 6.6 G/DL (6.4-8.2) Albumin 2.9 G/DL (3.4-5.0) L Globulin 3.7 g/dL Albumin/Globulin Ratio 0.8 (1.0-2.7) L Height (Feet): 5 Height (Inches): 4.00 Weight (Pounds): 135 Medications Current Medications Medications (Trade) Dose Ordered Sig/Ninfa Route PRN Reason Start Time Stop Time Status Last Admin Dose Admin Acetaminophen (Tylenol) 650 mg Q4H PRN ORAL temp>100.5F 02/18/17 23:12 03/20/17 23:11 Albuterol/ Ipratropium (Albuterol/ Ipratropium) 3 ml Q6H PRN HHN dyspnea 02/18/17 23:14 02/23/17 23:13 Aspirin (Ecotrin) 81 mg DAILY ORAL 02/19/17 09:00 03/21/17 08:59 02/19/17 11:37 Atorvastatin Calcium (Lipitor) 10 mg BEDTIME ORAL 02/19/17 21:00 03/20/17 20:59 Clonidine HCl (Catapres) 0.1 mg Q4H PRN ORAL For High Blood Pressure 02/18/17 23:12 03/20/17 23:11 Clopidogrel Bisulfate (Plavix) 75 mg DAILY ORAL 02/19/17 09:00 03/21/17 08:59 02/19/17 11:37 Dextrose 1,000 ml @ 150 mls/hr Q6H40M IV 02/18/17 23:30 03/20/17 23:29 02/19/17 13:43 Dextrose (Dextrose 50%) STAT PRN IV Hypoglycemia 02/18/17 23:13 03/20/17 23:12 Fish Oil (Fish Oil) 1,000 mg BID ORAL 02/19/17 09:00 03/20/17 17:59 02/19/17 17:20 Heparin Sodium (Porcine) (Heparin 5000 units/ml) 5,000 units EVERY 12 HOURS SUBQ 02/19/17 09:00 03/19/17 20:59 02/19/17 11:40 Insulin Aspart (NovoLOG) BEFORE MEALS AND HS SUBQ 02/19/17 06:30 03/19/17 16:29 02/19/17 17:06 Ondansetron HCl (Zofran) 4 mg Q6H PRN IVP Nausea & Vomiting 02/18/17 23:16 03/20/17 23:15 Pantoprazole (Protonix) 40 mg DAILY ORAL 02/19/17 09:00 03/21/17 08:59 02/19/17 11:38 Polyethylene Glycol (Miralax) 17 gm HSPRN PRN ORAL Constipation 02/18/17 23:16 03/20/17 23:15 Potassium Phosphate 20 mm/ Sodium Chloride 281.6667 ml @ 46.944 m... ONCE ONCE IV 02/19/17 13:00 02/19/17 18:59 02/19/17 13:43 Zolpidem Tartrate (Ambien) 5 mg HSPRN PRN ORAL Insomnia 02/18/17 23:16 02/25/17 23:15 Assessment/Plan Status: stable Assessment/Plan encephalopathy -no meds at this time -not benefit from paxil -Shaheed Brannon M.D. Feb 19, 2017 18:10
--- NOTE | 2017-02-19 18:12 | General Progress Note ---
Assessment/Plan Status: stable Assessment/Plan encephalopathy lacks capacity -no meds at this tiem Subjective Neurologic/Psychiatric: Reports: anxiety, depressed Allergies: Coded Allergies: Potato (Unverified Allergy, Unknown, 12/26/16) Objective Last 24 Hour Vital Signs Date Time Temp Pulse Resp B/P (MAP) Pulse Ox O2 Delivery O2 Flow Rate FiO2 02/19/17 16:00 97.7 67 20 109/54 98 Room Air 02/19/17 11:40 97.5 92 20 143/48 95 Room Air 02/19/17 08:26 63 18 Room Air 02/19/17 08:17 97.5 63 21 113/58 96 Room Air 02/19/17 04:00 97.3 57 18 104/51 100 Room Air 02/19/17 00:00 97.0 60 20 119/84 96 Room Air 02/18/17 20:00 97.5 66 20 99/50 95 Room Air 02/18/17 19:53 71 18 Room Air Intake and Output 02/19/17 02/20/17 19:00 07:00 Intake Total 240 ml Balance 240 ml Intake Oral 240 ml Laboratory Tests 02/19/17 09:20: Sodium Level 149H, Potassium Level 3.8, Chloride Level 117H, Carbon Dioxide Level 21, Anion Gap 11, Blood Urea Nitrogen 70H, Creatinine 1.8H, Estimat Glomerular Filtration Rate , Glucose Level 117H, Uric Acid 7.3H, Calcium Level 7.8L, Phosphorus Level 1.9L, Magnesium Level 0.9*L, Total Bilirubin 0.3, Aspartate Amino Transf (AST/SGOT) 19, Alanine Aminotransferase (ALT/SGPT) 19, Alkaline Phosphatase 56, Total Protein 6.6, Albumin 2.9L, Globulin 3.7, Albumin/ Globulin Ratio 0.8L Height (Feet): 5 Height (Inches): 4.00 Weight (Pounds): 135 General Appearance: no apparent distress, alert, confused Neurologic: alert, disoriented, depressed affect Shaheed Hedrick M.D. Feb 19, 2017 18:12
--- NOTE | 2017-02-19 18:25 | General Progress Note ---
Assessment/Plan Status: doing well Status Narrative Na lower- BUN and Cr lower Assessment/Plan status; Acute renal failure Dehydration acute on chronic ( Alzheimer dementia) encephalopathy likely 2 to UTI UTI / sepsis DM, mixed hyperlipidemia obstipation Hx of HTN hx of ischemic CVA end stage Alzheimer dementia risk for silent aspiration Plan : Hydrate- D5w K and Phos and Mag supplement as needed monitor renal parameters- antibiotics per orders Subjective ROS Limited/Unobtainable: No Constitutional: Reports: malaise Allergies: Coded Allergies: Potato (Unverified Allergy, Unknown, 12/26/16) Objective Last 24 Hour Vital Signs Date Time Temp Pulse Resp B/P (MAP) Pulse Ox O2 Delivery O2 Flow Rate FiO2 02/19/17 16:00 97.7 67 20 109/54 98 Room Air 02/19/17 11:40 97.5 92 20 143/48 95 Room Air 02/19/17 08:26 63 18 Room Air 02/19/17 08:17 97.5 63 21 113/58 96 Room Air 02/19/17 04:00 97.3 57 18 104/51 100 Room Air 02/19/17 00:00 97.0 60 20 119/84 96 Room Air 02/18/17 20:00 97.5 66 20 99/50 95 Room Air 02/18/17 19:53 71 18 Room Air Intake and Output 02/19/17 02/20/17 19:00 07:00 Intake Total 240 ml Balance 240 ml Intake Oral 240 ml Laboratory Tests 02/19/17 09:20: Sodium Level 149H, Potassium Level 3.8, Chloride Level 117H, Carbon Dioxide Level 21, Anion Gap 11, Blood Urea Nitrogen 70H, Creatinine 1.8H, Estimat Glomerular Filtration Rate , Glucose Level 117H, Uric Acid 7.3H, Calcium Level 7.8L, Phosphorus Level 1.9L, Magnesium Level 0.9*L, Total Bilirubin 0.3, Aspartate Amino Transf (AST/SGOT) 19, Alanine Aminotransferase (ALT/SGPT) 19, Alkaline Phosphatase 56, Total Protein 6.6, Albumin 2.9L, Globulin 3.7, Albumin/ Globulin Ratio 0.8L Height (Feet): 5 Height (Inches): 4.00 Weight (Pounds): 135 General Appearance: no apparent distress Objective PE not changed NAYE DAY Feb 19, 2017 18:25
[2017-02-19 20:00] VITALS: BP_SYST 84; BP_SYST 92; BP_DIAS 57; BP_DIAS 59
--- NOTE | 2017-02-19 21:00 | Consultation ---
DATE OF CONSULTATION: 02/19/2017 INFECTIOUS DISEASE CONSULT CONSULTING PHYSICIAN: Kanu Dia M.D. REFERRING PHYSICIAN: Katelynn French M.D. ATTENDING PHYSICIAN: Katelynn French M.D. REASON FOR CONSULTATION: Evaluation of the patient for sepsis, urinary tract infection, and antibiotic management. HISTORY OF PRESENT ILLNESS: The patient is an 82-year-old female with multiple medical problems, who was brought from home by family to the emergency room due to lethargic and inability to ambulate. The patient has been admitted with the impression of possible sepsis. An Infectious Disease consultation has been requested for further evaluation of the patient and antibiotic management. PAST MEDICAL HISTORY: 1. History of renal insufficiency. 2. Dementia. 3. Diabetes. 4. Hyperlipidemia. 5. Hypertension. 6. History of CVA. MEDICATION: Currently off of antibiotics. ALLERGIES: No known drug allergies. FAMILY HISTORY: Noncontributory. REVIEW OF SYSTEMS: Unobtainable. Most of the information that is available is gathered through interview of the family member at the bedside. PHYSICAL EXAMINATION: VITAL SIGNS: Temperature 97.5 degrees, blood pressure 142/48, pulse 66, respiratory rate 18. HEENT: Mild pale conjunctivae. No icterus. NECK: No lymphadenopathy. CHEST: Clear. HEART: S1 and S2. ABDOMEN: Soft. EXTREMITIES: No cyanosis. NEUROLOGIC: Awake and lethargic. LABORATORY DATA: White blood cells 5.7, hemoglobin 14, and platelets 208,000. UA shows 60 to 80 white blood cells. BUN 70 and creatinine 1.8. Liver function tests unremarkable. Urine culture is growing ESBL Klebsiella. Wound culture is growing gram-positive cocci, contaminant. ASSESSMENT: The patient is an 82-year-old female with, 1. General weakness, possibly due to sepsis and urinary tract infection. 2. Urinary tract infection, extended-spectrum beta-lactamases Klebsiella. 3. Wound culture is growing gram-positive cocci (colonization). 4. Acute renal failure, improving. 5. Afebrile. 6. Low white blood cells. PLAN: 1. I will start the patient on Invanz 1 g daily. 2. Monitor CBC. 3. Monitor BMP. 4. Monitor blood culture. 5. Monitor chest x-ray. 6. Based on the patient's clinical course and labs, we will do further recommendation. Thank you, Dr. French, for allowing me to participate in the care of this patient. I will follow the patient with you during this hospitalization. Kanu Dia M.D. DR: MARITZA JOB#: [id number] CC:
[2017-02-20] VITALS: BP 108/57
[2017-02-20 04:00] VITALS: BP 109/56
[2017-02-20] MEDS: NovoLOG Insulin Flexpen SUBQ SCH ×4 (06:19→21:21)
[2017-02-20 07:22] LABS: ALANINE AMINOTRANSFERASE 17 U/L (12-78); ALBUMIN 2.5 G/DL (3.4-5.0); ALBUMIN/GLOBULIN RATIO 0.7 (1.0-2.7); ALKALINE PHOSPHATASE 54 U/L (46-116); ANION GAP 14 mmol/L (5-15); ASPARTATE AMINO TRANSFERASE 20 U/L (15-37); BILIRUBIN,TOTAL 0.2 MG/DL (0.2-1.0); BLOOD UREA NITROGEN 54 mg/dL (7-18); CALCIUM 7.6 MG/DL (8.5-10.1); CARBON DIOXIDE 15 MMOL/L (21-32); CHLORIDE 121 MMOL/L (98-107); CREATININE 1.5 MG/DL (0.55-1.30); POTASSIUM 4.6 MMOL/L (3.5-5.1); SODIUM 150 MMOL/L (136-145)
[2017-02-20 07:23] LABS: CHOLESTEROL 186 MG/DL (< 200); HDL CHOLESTEROL 43 MG/DL (40-60); PHOSPHORUS 3.3 MG/DL (2.5-4.9); TRIGLYCERIDES 163 MG/DL (0-200)
[2017-02-20 08:00] VITALS: BP 97/58
--- NOTE | 2017-02-20 08:21 | Pulmonology Progress Note ---
Assessment/Plan Assessment/Plan ASSESSMENT Severe sepsis ( due to UTI) UTI with Klebsiella ESBL Acute encephalopathy on chronic end stage Alzheimer dementia ( likely due to sepsis and acute renal failure) Acute renal failure on CRI Dehydration hypernatremia Mixed hyperlipidemia electrolyte imbalance ( hyper K, hypo Mg, hypo P) Fecal impaction DM HTN Hx of ischemic CVA PLAN OF CARE MS floor IVF abx ID follows urine cx + Klebsiella ESBL, blood cx preliminary negative, wound cx colonized as per ID monitor renal parameters, lytes, nephro follows, improving replace lytes as needed avoid nephrotoxic continue ASA, statin, Fish oil BS management with SS of insulin, HgA1c at goal -6.[address] A/P with evidence of fecal impaction and ectopic R kidney Wound care as per wound nurse recommendations O2 HN prn DVT GI prophylaxis diet as tolerated with strict aspiration/reflux precautions with 1 to 1 feeding dc plan home with HH for IV abx when HH services secured case discussed and evaluated by supervising physician Subjective Allergies: Coded Allergies: Potato (Unverified Allergy, Unknown, 12/26/16) Subjective afebrile, no leucocytosis on IV abx no signs fo distress family declined SNF placement Objective Last 24 Hour Vital Signs Date Time Temp Pulse Resp B/P (MAP) Pulse Ox O2 Delivery O2 Flow Rate FiO2 02/20/17 04:00 97.7 58 18 109/56 98 Room Air 02/20/17 00:00 97.7 86 20 108/57 98 Room Air 02/19/17 20:03 62 16 Room Air 02/19/17 20:00 99.1 62 20 92/57 100 Room Air 02/19/17 16:00 97.7 67 20 109/54 98 Room Air 02/19/17 11:40 97.5 92 20 143/48 95 Room Air 02/19/17 08:26 63 18 Room Air General Appearance: no acute distress, other - awake, poorly but resposnive , bedridden elderly female HEENT: anicteric Respiratory/Chest: lungs clear, no respiratory distress, no accessory muscle use Cardiovascular: normal peripheral pulses, normal rate, regular rhythm Abdomen: soft, non tender, non distended Extremities: no edema Neurologic/Psychiatric: abnormal gait - bedridden, alert Musculoskeletal: atrophy - BLER Microbiology Date/Time Source Procedure Growth Status 02/17/17 12:10 Blood Blood Culture - Preliminary NO GROWTH AFTER 48 HOURS Resulted 02/17/17 12:10 Blood Blood Culture - Preliminary NO GROWTH AFTER 48 HOURS Resulted 02/17/17 12:15 Urine,Clean Catch Urine Culture - Final Klebsiella Pneumoniae Esbl Complete 02/18/17 00:40 Buttock Right Gram Stain - Final Resulted 02/18/17 00:40 Wound Culture - Preliminary Gram Positive Cocci Resulted Laboratory Tests 02/19/17 09:20: Sodium Level 149H, Potassium Level 3.8, Chloride Level 117H, Carbon Dioxide Level 21, Anion Gap 11, Blood Urea Nitrogen 70H, Creatinine 1.8H, Estimat Glomerular Filtration Rate , Glucose Level 117H, Uric Acid 7.3H, Calcium Level 7.8L, Phosphorus Level 1.9L, Magnesium Level 0.9*L, Total Bilirubin 0.3, Aspartate Amino Transf (AST/SGOT) 19, Alanine Aminotransferase (ALT/SGPT) 19, Alkaline Phosphatase 56, Total Protein 6.6, Albumin 2.9L, Globulin 3.7, Albumin/ Globulin Ratio 0.8L 02/20/17 06:15: Sodium Level 150H, Potassium Level 4.6, Chloride Level 121H, Carbon Dioxide Level 15L, Anion Gap 14, Blood Urea Nitrogen 54H, Creatinine 1.5H, Estimat Glomerular Filtration Rate , Glucose Level 240#H, Calcium Level 7.6L, Phosphorus Level 3.3, Magnesium Level 2.0, Total Bilirubin 0.2, Aspartate Amino Transf (AST/SGOT) 20, Alanine Aminotransferase (ALT/SGPT) 17, Alkaline Phosphatase 54, Total Protein 6.3L, Albumin 2.5L, Globulin 3.8, Albumin/ Globulin Ratio 0.7L, Triglycerides Level 163, Cholesterol Level 186, LDL Cholesterol 117H, HDL Cholesterol 43, Cholesterol/HDL Ratio 4.3 Current Medications Medications (Trade) Dose Ordered Sig/Ninfa Route PRN Reason Start Time Stop Time Status Last Admin Dose Admin Acetaminophen (Tylenol) 650 mg Q4H PRN ORAL temp>100.5F 02/18/17 23:12 03/20/17 23:11 Albuterol/ Ipratropium (Albuterol/ Ipratropium) 3 ml Q6H PRN HHN dyspnea 02/18/17 23:14 02/23/17 23:13 Aspirin (Ecotrin) 81 mg DAILY ORAL 02/19/17 09:00 03/21/17 08:59 02/19/17 11:37 Atorvastatin Calcium (Lipitor) 10 mg BEDTIME ORAL 02/19/17 21:00 03/20/17 20:59 02/19/17 21:09 Clonidine HCl (Catapres) 0.1 mg Q4H PRN ORAL For High Blood Pressure 02/18/17 23:12 03/20/17 23:11 Clopidogrel Bisulfate (Plavix) 75 mg DAILY ORAL 02/19/17 09:00 03/21/17 08:59 02/19/17 11:37 Dextrose 1,000 ml @ 75 mls/hr [id number] IV 02/19/17 23:30 03/21/17 23:29 02/20/17 06:21 Dextrose (Dextrose 50%) STAT PRN IV Hypoglycemia 02/18/17 23:13 03/20/17 23:12 Fish Oil (Fish Oil) 1,000 mg BID ORAL 02/19/17 09:00 03/20/17 17:59 02/19/17 17:20 Heparin Sodium (Porcine) (Heparin 5000 units/ml) 5,000 units EVERY 12 HOURS SUBQ 02/19/17 09:00 03/19/17 20:59 02/19/17 21:14 Insulin Aspart (NovoLOG) BEFORE MEALS AND HS SUBQ 02/19/17 06:30 03/19/17 16:29 02/20/17 06:19 Ondansetron HCl (Zofran) 4 mg Q6H PRN IVP Nausea & Vomiting 02/18/17 23:16 03/20/17 23:15 Pantoprazole (Protonix) 40 mg DAILY ORAL 02/19/17 09:00 03/21/17 08:59 02/19/17 11:38 Polyethylene Glycol (Miralax) 17 gm HSPRN PRN ORAL Constipation 02/18/17 23:16 03/20/17 23:15 Zolpidem Tartrate (Ambien) 5 mg HSPRN PRN ORAL Insomnia 02/18/17 23:16 02/25/17 23:15 Reza JoyceJill may NP Feb 20, 2017 08:21
--- NOTE | 2017-02-20 09:20 | Infectious Diseases Prog Note ---
Assessment/Plan Assessment/Plan ASSESSMENT: The patient is an 82-year-old female with, General weakness, Probable sepsis and urinary tract infection. Urinary tract infection UCX: extended-spectrum beta-lactamases Klebsiella. Wound culture is growing gram-positive cocci (colonization). Acute renal failure, improving. Afebrile. History of renal insufficiency. Dementia. Diabetes. Hyperlipidemia. Hypertension. History of CVA. . PLAN: cont patient on Invanz 1 g daily d# Monitor CBC. Monitor BMP. Monitor blood culture. Monitor chest x-ray Subjective Constitutional: Denies: no symptoms, fever, chills, fatigue, anorexia, drenching sweats, other Allergies: Coded Allergies: Potato (Unverified Allergy, Unknown, 12/26/16) Objective Vital Signs Last 24 Hour Vital Signs Date Time Temp Pulse Resp B/P (MAP) Pulse Ox O2 Delivery O2 Flow Rate FiO2 02/20/17 04:00 97.7 58 18 109/56 98 Room Air 02/20/17 00:00 97.7 86 20 108/57 98 Room Air 02/19/17 20:03 62 16 Room Air 02/19/17 20:00 99.1 62 20 92/57 100 Room Air 02/19/17 16:00 97.7 67 20 109/54 98 Room Air 02/19/17 11:40 97.5 92 20 143/48 95 Room Air Height (Feet): 5 Height (Inches): 4.00 Weight (Pounds): 135 HEENT: anicteric Respiratory/Chest: no respiratory distress Cardiovascular: regular rhythm Abdomen: non distended Microbiology Date/Time Source Procedure Growth Status 02/17/17 12:10 Blood Blood Culture - Preliminary NO GROWTH AFTER 48 HOURS Resulted 02/17/17 12:10 Blood Blood Culture - Preliminary NO GROWTH AFTER 48 HOURS Resulted 02/17/17 12:15 Urine,Clean Catch Urine Culture - Final Klebsiella Pneumoniae Esbl Complete 02/18/17 00:40 Buttock Right Gram Stain - Final Resulted 02/18/17 00:40 Wound Culture - Preliminary Gram Positive Cocci Resulted Laboratory Tests Test 02/19/17 09:20 02/20/17 06:15 Sodium Level 149 MMOL/L (136-145) H 150 MMOL/L (136-145) H Potassium Level 3.8 MMOL/L (3.5-5.1) 4.6 MMOL/L (3.5-5.1) Chloride Level 117 MMOL/L (98-107) H 121 MMOL/L (98-107) H Carbon Dioxide Level 21 MMOL/L (21-32) 15 MMOL/L (21-32) L Anion Gap 11 mmol/L (5-15) 14 mmol/L (5-15) Blood Urea Nitrogen 70 mg/dL (7-18) H 54 mg/dL (7-18) H Creatinine 1.8 MG/DL (0.55-1.30) H 1.5 MG/DL (0.55-1.30) H Estimat Glomerular Filtration Rate mL/min (>60) mL/min (>60) Glucose Level 117 MG/DL (74-106) H 240 MG/DL (74-106) #H Uric Acid 7.3 MG/DL (2.6-7.2) H Calcium Level 7.8 MG/DL (8.5-10.1) L 7.6 MG/DL (8.5-10.1) L Phosphorus Level 1.9 MG/DL (2.5-4.9) L 3.3 MG/DL (2.5-4.9) Magnesium Level 0.9 MG/DL (1.8-2.4) *L 2.0 MG/DL (1.8-2.4) Total Bilirubin 0.3 MG/DL (0.2-1.0) 0.2 MG/DL (0.2-1.0) Aspartate Amino Transf (AST/SGOT) 19 U/L (15-37) 20 U/L (15-37) Alanine Aminotransferase (ALT/SGPT) 19 U/L (12-78) 17 U/L (12-78) Alkaline Phosphatase 56 U/L (46-116) 54 U/L (46-116) Total Protein 6.6 G/DL (6.4-8.2) 6.3 G/DL (6.4-8.2) L Albumin 2.9 G/DL (3.4-5.0) L 2.5 G/DL (3.4-5.0) L Globulin 3.7 g/dL 3.8 g/dL Albumin/Globulin Ratio 0.8 (1.0-2.7) L 0.7 (1.0-2.7) L Triglycerides Level 163 MG/DL (0-200) Cholesterol Level 186 MG/DL (< 200) LDL Cholesterol 117 mg/dL (<100) H HDL Cholesterol 43 MG/DL (40-60) Cholesterol/HDL Ratio 4.3 (3.3-4.4) Current Medications Medications (Trade) Dose Ordered Sig/Ninfa Route PRN Reason Start Time Stop Time Status Last Admin Dose Admin Acetaminophen (Tylenol) 650 mg Q4H PRN ORAL temp>100.5F 02/18/17 23:12 03/20/17 23:11 Albuterol/ Ipratropium (Albuterol/ Ipratropium) 3 ml Q6H PRN HHN dyspnea 02/18/17 23:14 02/23/17 23:13 Aspirin (Ecotrin) 81 mg DAILY ORAL 02/19/17 09:00 03/21/17 08:59 02/19/17 11:37 Atorvastatin Calcium (Lipitor) 10 mg BEDTIME ORAL 02/19/17 21:00 03/20/17 20:59 02/19/17 21:09 Clonidine HCl (Catapres) 0.1 mg Q4H PRN ORAL For High Blood Pressure 02/18/17 23:12 03/20/17 23:11 Clopidogrel Bisulfate (Plavix) 75 mg DAILY ORAL 02/19/17 09:00 03/21/17 08:59 02/19/17 11:37 Dextrose 1,000 ml @ 75 mls/hr [id number] IV 02/19/17 23:30 03/21/17 23:29 02/20/17 06:21 Dextrose (Dextrose 50%) STAT PRN IV Hypoglycemia 02/18/17 23:13 03/20/17 23:12 Fish Oil (Fish Oil) 1,000 mg BID ORAL 02/19/17 09:00 03/20/17 17:59 02/19/17 17:20 Heparin Sodium (Porcine) (Heparin 5000 units/ml) 5,000 units EVERY 12 HOURS SUBQ 02/19/17 09:00 03/19/17 20:59 02/19/17 21:14 Insulin Aspart (NovoLOG) BEFORE MEALS AND HS SUBQ 02/19/17 06:30 03/19/17 16:29 02/20/17 06:19 Ondansetron HCl (Zofran) 4 mg Q6H PRN IVP Nausea & Vomiting 02/18/17 23:16 03/20/17 23:15 Pantoprazole (Protonix) 40 mg DAILY ORAL 02/19/17 09:00 03/21/17 08:59 02/19/17 11:38 Polyethylene Glycol (Miralax) 17 gm HSPRN PRN ORAL Constipation 02/18/17 23:16 03/20/17 23:15 Zolpidem Tartrate (Ambien) 5 mg HSPRN PRN ORAL Insomnia 02/18/17 23:16 02/25/17 23:15 SAVITA RENE M.D. Feb 20, 2017 09:20
[2017-02-20] MEDS: Aspirin EC 81mg tab ORAL SCH (09:58)
[2017-02-20 09:59] LABS: BASOPHILS % (AUTO) 0.8 % (0.0-2.0); EOSINOPHILS % (AUTO) 2.6 % (0.0-3.0); HEMATOCRIT 36.1 % (37.0-47.0); HEMOGLOBIN 11.2 G/DL (12.0-16.0); MEAN CORPUSCULAR VOLUME 92 FL (80-99); MONOCYTES % (AUTO) 12.3 % (1.0-10.0); NEUTROPHILS % (AUTO) 47.3 % (45.0-75.0); PLATELET COUNT 232 K/UL (150-450); RED BLOOD COUNT 3.93 M/UL (4.20-5.40); RED CELL DISTRIBUTION WIDTH 15.6 % (11.6-14.8); WHITE BLOOD COUNT 6.5 K/UL (4.8-10.8)
[2017-02-20] MEDS: Heparin 5000 units/ml inj SUBQ SCH ×2 (10:00→21:21)
--- NOTE | 2017-02-20 11:22 | General Progress Note ---
Assessment/Plan Status: stable Status Narrative renal parameters improving Assessment/Plan status; Acute renal failure- resolving Dehydration- resolving acute on chronic ( Alzheimer dementia) encephalopathy likely 2 to UTI UTI / sepsis DM, mixed hyperlipidemia obstipation Hx of HTN hx of ischemic CVA end stage Alzheimer dementia risk for silent aspiration Plan : Hydrate- D5w down to 50cc hour K and Phos and Mag supplement as needed monitor renal parameters- antibiotics per orders Subjective ROS Limited/Unobtainable: No Constitutional: Reports: malaise Allergies: Coded Allergies: Potato (Unverified Allergy, Unknown, 12/26/16) Objective Last 24 Hour Vital Signs Date Time Temp Pulse Resp B/P (MAP) Pulse Ox O2 Delivery O2 Flow Rate FiO2 02/20/17 08:04 68 16 Room Air 02/20/17 04:00 97.7 58 18 109/56 98 Room Air 02/20/17 00:00 97.7 86 20 108/57 98 Room Air 02/19/17 20:03 62 16 Room Air 02/19/17 20:00 99.1 62 20 92/57 100 Room Air 02/19/17 16:00 97.7 67 20 109/54 98 Room Air 02/19/17 11:40 97.5 92 20 143/48 95 Room Air Laboratory Tests 02/20/17 06:15: Sodium Level 150H, Potassium Level 4.6, Chloride Level 121H, Carbon Dioxide Level 15L, Anion Gap 14, Blood Urea Nitrogen 54H, Creatinine 1.5H, Estimat Glomerular Filtration Rate , Glucose Level 240#H, Calcium Level 7.6L, Phosphorus Level 3.3, Magnesium Level 2.0, Total Bilirubin 0.2, Aspartate Amino Transf (AST/SGOT) 20, Alanine Aminotransferase (ALT/SGPT) 17, Alkaline Phosphatase 54, Total Protein 6.3L, Albumin 2.5L, Globulin 3.8, Albumin/ Globulin Ratio 0.7L, Triglycerides Level 163, Cholesterol Level 186, LDL Cholesterol 117H, HDL Cholesterol 43, Cholesterol/HDL Ratio 4.3 02/20/17 09:40: White Blood Count 6.5, Red Blood Count 3.93L, Hemoglobin 11.2L, Hematocrit 36.1L , Mean Corpuscular Volume 92, Mean Corpuscular Hemoglobin 28.6, Mean Corpuscular Hemoglobin Concent 31.1L, Red Cell Distribution Width 15.6H, Platelet Count 232, Mean Platelet Volume 8.4, Neutrophils (%) (Auto) 47.3, Lymphocytes (%) (Auto) 37.0, Monocytes (%) (Auto) 12.3H, Eosinophils (%) (Auto) 2.6, Basophils (%) (Auto) 0.8 Height (Feet): 5 Height (Inches): 4.00 Weight (Pounds): 135 General Appearance: no apparent distress, lethargic, confused Neck: limited range of motion Cardiovascular: normal rate Respiratory/Chest: decreased breath sounds Abdomen: soft Objective PE not changed NAYE DAY Feb 20, 2017 11:22
[2017-02-20 12:00] VITALS: BP 102/61
[2017-02-20] MEDS: Ertapenem 1 GM in NS 55 ML IVPB SCH (12:14)
[2017-02-20 15:20] VITALS: BP 87/45
[2017-02-20] MEDS ORDERED: Vitamin D 50,000 units cap ORAL SCH (18:00)
[2017-02-20 20:00] VITALS: BP 101/57
--- NOTE | 2017-02-20 23:28 | General Progress Note ---
Assessment/Plan Status: stable Assessment/Plan encephalopathy lacks capacity -no meds at this tie Subjective Neurologic/Psychiatric: Reports: anxiety Allergies: Coded Allergies: Potato (Unverified Allergy, Unknown, 12/26/16) Subjective Attempted to pull on IV access earlier Objective Last 24 Hour Vital Signs Date Time Temp Pulse Resp B/P (MAP) Pulse Ox O2 Delivery O2 Flow Rate FiO2 02/20/17 20:29 90 18 Room Air 02/20/17 20:00 96.8 90 20 101/57 96 Room Air 02/20/17 15:20 97.6 62 21 87/45 95 Room Air 02/20/17 12:00 97.6 62 19 102/61 97 Room Air 02/20/17 08:04 68 16 Room Air 02/20/17 08:00 97.4 60 20 97/58 98 Room Air 02/20/17 04:00 97.7 58 18 109/56 98 Room Air 02/20/17 00:00 97.7 86 20 108/57 98 Room Air Intake and Output 02/20/17 02/21/17 19:00 07:00 Intake Total 1155 ml Output Total 600 ml Balance 555 ml Intake Oral 600 ml IV Total 555 ml Output Urine Total 600 ml Laboratory Tests 02/20/17 06:15: Sodium Level 150H, Potassium Level 4.6, Chloride Level 121H, Carbon Dioxide Level 15L, Anion Gap 14, Blood Urea Nitrogen 54H, Creatinine 1.5H, Estimat Glomerular Filtration Rate , Glucose Level 240#H, Calcium Level 7.6L, Phosphorus Level 3.3, Magnesium Level 2.0, Total Bilirubin 0.2, Aspartate Amino Transf (AST/SGOT) 20, Alanine Aminotransferase (ALT/SGPT) 17, Alkaline Phosphatase 54, Total Protein 6.3L, Albumin 2.5L, Globulin 3.8, Albumin/ Globulin Ratio 0.7L, Triglycerides Level 163, Cholesterol Level 186, LDL Cholesterol 117H, HDL Cholesterol 43, Cholesterol/HDL Ratio 4.3 02/20/17 09:40: White Blood Count 6.5, Red Blood Count 3.93L, Hemoglobin 11.2L, Hematocrit 36.1L , Mean Corpuscular Volume 92, Mean Corpuscular Hemoglobin 28.6, Mean Corpuscular Hemoglobin Concent 31.1L, Red Cell Distribution Width 15.6H, Platelet Count 232, Mean Platelet Volume 8.4, Neutrophils (%) (Auto) 47.3, Lymphocytes (%) (Auto) 37.0, Monocytes (%) (Auto) 12.3H, Eosinophils (%) (Auto) 2.6, Basophils (%) (Auto) 0.8 Height (Feet): 5 Height (Inches): 4.00 Weight (Pounds): 135 General Appearance: no apparent distress, confused Shaheed Hedrick M.D. Feb 20, 2017 23:28
[2017-02-21] VITALS: BP 95/56
[2017-02-21 04:00] VITALS: BP 145/66
[2017-02-21] MEDS: NovoLOG Insulin Flexpen SUBQ SCH ×2 (07:00→11:35)
[2017-02-21 08:26] VITALS: BP 84/55
[2017-02-21] MEDS: Aspirin EC 81mg tab ORAL SCH (08:28)
[2017-02-21] MEDS: Heparin 5000 units/ml inj SUBQ SCH (08:29)
[2017-02-21] MEDS ORDERED: INVANZ1 GM IVPB (08:41)
--- NOTE | 2017-02-21 08:43 | Pulmonology Progress Note ---
Assessment/Plan Assessment/Plan ASSESSMENT Severe sepsis ( due to UTI) UTI with Klebsiella ESBL Acute encephalopathy on chronic end stage Alzheimer dementia ( likely due to sepsis and acute renal failure) Acute renal failure on CRI Dehydration hypernatremia Mixed hyperlipidemia electrolyte imbalance ( hyper K, hypo Mg, hypo P) Fecal impaction DM HTN Hx of ischemic CVA PLAN OF CARE MS floor IVF abx ID follows urine cx + Klebsiella ESBL, blood cx preliminary negative, wound cx colonized as per ID monitor renal parameters, lytes, nephro follows, improving replace lytes as needed avoid nephrotoxic continue ASA, statin, Fish oil BS management with SS of insulin, HgA1c at goal -6.[address] A/P with evidence of fecal impaction and ectopic R kidney Wound care as per wound nurse recommendations O2 HN prn DVT GI prophylaxis diet as tolerated with strict aspiration/reflux precautions with 1 to 1 feeding dc today with HH case discussed and evaluated by supervising physician Subjective Allergies: Coded Allergies: Potato (Unverified Allergy, Unknown, 12/26/16) Subjective afebrile, no leucocytosis on IV abx no signs fo distress family declined SNF placement arrangements were made for HH services for IV abx Objective Last 24 Hour Vital Signs Date Time Temp Pulse Resp B/P (MAP) Pulse Ox O2 Delivery O2 Flow Rate FiO2 02/21/17 08:26 97.2 53 21 84/55 98 Room Air 02/21/17 07:52 86 17 Room Air 02/21/17 04:00 97.3 66 18 145/66 97 Room Air 02/21/17 00:00 97.5 55 20 95/56 95 Room Air 02/20/17 20:29 90 18 Room Air 02/20/17 20:00 96.8 90 20 101/57 96 Room Air 02/20/17 15:20 97.6 62 21 87/45 95 Room Air 02/20/17 12:00 97.6 62 19 102/61 97 Room Air Objective General Appearance: no acute distress, other - awake, poorly but resposnive , bedridden elderly female HEENT: anicteric Respiratory/Chest: lungs clear, no respiratory distress, no accessory muscle use Cardiovascular: normal peripheral pulses, normal rate, regular rhythm Abdomen: soft, non tender, non distended Extremities: no edema Neurologic/Psychiatric: abnormal gait - bedridden, alert Musculoskeletal: atrophy - BLER Laboratory Tests 02/20/17 09:40: White Blood Count 6.5, Red Blood Count 3.93L, Hemoglobin 11.2L, Hematocrit 36.1L , Mean Corpuscular Volume 92, Mean Corpuscular Hemoglobin 28.6, Mean Corpuscular Hemoglobin Concent 31.1L, Red Cell Distribution Width 15.6H, Platelet Count 232, Mean Platelet Volume 8.4, Neutrophils (%) (Auto) 47.3, Lymphocytes (%) (Auto) 37.0, Monocytes (%) (Auto) 12.3H, Eosinophils (%) (Auto) 2.6, Basophils (%) (Auto) 0.8 Current Medications Medications (Trade) Dose Ordered Sig/Ninfa Route PRN Reason Start Time Stop Time Status Last Admin Dose Admin Acetaminophen (Tylenol) 650 mg Q4H PRN ORAL temp>100.5F 02/18/17 23:12 03/20/17 23:11 Albuterol/ Ipratropium (Albuterol/ Ipratropium) 3 ml Q6H PRN HHN dyspnea 02/18/17 23:14 02/23/17 23:13 Aspirin (Ecotrin) 81 mg DAILY ORAL 02/19/17 09:00 03/21/17 08:59 02/21/17 08:28 Atorvastatin Calcium (Lipitor) 10 mg BEDTIME ORAL 02/19/17 21:00 03/20/17 20:59 02/20/17 21:13 Clonidine HCl (Catapres) 0.1 mg Q4H PRN ORAL For High Blood Pressure 02/18/17 23:12 03/20/17 23:11 Clopidogrel Bisulfate (Plavix) 75 mg DAILY ORAL 02/19/17 09:00 03/21/17 08:59 02/21/17 08:28 Dextrose 1,000 ml @ 50 mls/hr Q20H IV 02/20/17 13:00 03/22/17 12:59 02/21/17 00:13 Dextrose (Dextrose 50%) STAT PRN IV Hypoglycemia 02/18/17 23:13 03/20/17 23:12 Ergocalciferol (Drisdol) 50,000 intlu QWEEK ORAL 02/20/17 18:00 03/22/17 17:59 Ertapenem 1 gm/ Sodium Chloride 55 ml @ 110 mls/hr Q24H IVPB 02/20/17 12:00 02/25/17 11:59 02/20/17 12:14 Fish Oil (Fish Oil) 1,000 mg BID ORAL 02/19/17 09:00 03/20/17 17:59 02/20/17 09:58 Heparin Sodium (Porcine) (Heparin 5000 units/ml) 5,000 units EVERY 12 HOURS SUBQ 02/19/17 09:00 03/19/17 20:59 02/21/17 08:29 Insulin Aspart (NovoLOG) BEFORE MEALS AND HS SUBQ 02/19/17 06:30 03/19/17 16:29 02/21/17 07:00 Ondansetron HCl (Zofran) 4 mg Q6H PRN IVP Nausea & Vomiting 02/18/17 23:16 03/20/17 23:15 Pantoprazole (Protonix) 40 mg DAILY ORAL 02/19/17 09:00 03/21/17 08:59 02/21/17 08:27 Polyethylene Glycol (Miralax) 17 gm HSPRN PRN ORAL Constipation 02/18/17 23:16 03/20/17 23:15 Zolpidem Tartrate (Ambien) 5 mg HSPRN PRN ORAL Insomnia 02/18/17 23:16 02/25/17 23:15 Jill Cobb NP ([facility]anch[facility]) Feb 21, 2017 08:43
[2017-02-21 11:23] VITALS: BP 102/69
[2017-02-21] MEDS: Ertapenem 1 GM in NS 55 ML IVPB SCH (11:33)
[2017-02-21 12:27] LABS: ALANINE AMINOTRANSFERASE 25 U/L (12-78); ALBUMIN 2.6 G/DL (3.4-5.0); ALBUMIN/GLOBULIN RATIO 0.7 (1.0-2.7); ALKALINE PHOSPHATASE 56 U/L (46-116); ANION GAP 9 mmol/L (5-15); ASPARTATE AMINO TRANSFERASE 23 U/L (15-37); BILIRUBIN,TOTAL 0.2 MG/DL (0.2-1.0); BLOOD UREA NITROGEN 30 mg/dL (7-18); CALCIUM 8.3 MG/DL (8.5-10.1); CARBON DIOXIDE 23 MMOL/L (21-32); CHLORIDE 116 MMOL/L (98-107); CREATININE 1.3 MG/DL (0.55-1.30); PHOSPHORUS 2.4 MG/DL (2.5-4.9); SODIUM 148 MMOL/L (136-145)
--- NOTE | 2017-02-21 12:52 | General Progress Note ---
Assessment/Plan Status: stable Status Narrative renal parameters now almost normal Assessment/Plan status; Acute renal failure- resolving Dehydration- resolving acute on chronic ( Alzheimer dementia) encephalopathy likely 2 to UTI UTI / sepsis DM, mixed hyperlipidemia obstipation Hx of HTN hx of ischemic CVA end stage Alzheimer dementia risk for silent aspiration Plan : DC IV Fluid- Discharge? discussed with RN Subjective ROS Limited/Unobtainable: No Constitutional: Reports: malaise Allergies: Coded Allergies: Potato (Unverified Allergy, Unknown, 12/26/16) Objective Last 24 Hour Vital Signs Date Time Temp Pulse Resp B/P (MAP) Pulse Ox O2 Delivery O2 Flow Rate FiO2 02/21/17 11:23 97.5 61 21 102/69 97 Room Air 02/21/17 08:26 97.2 53 21 84/55 98 Room Air 02/21/17 07:52 86 17 Room Air 02/21/17 04:00 97.3 66 18 145/66 97 Room Air 02/21/17 00:00 97.5 55 20 95/56 95 Room Air 02/20/17 20:29 90 18 Room Air 02/20/17 20:00 96.8 90 20 101/57 96 Room Air 02/20/17 15:20 97.6 62 21 87/45 95 Room Air Intake and Output 02/21/17 02/22/17 19:00 07:00 Intake Total 100 ml Balance 100 ml IV Total 100 ml Laboratory Tests 02/21/17 11:45: Sodium Level 148H, Potassium Level 4.0, Chloride Level 116H, Carbon Dioxide Level 23, Anion Gap 9, Blood Urea Nitrogen 30H, Creatinine 1.3, Estimat Glomerular Filtration Rate , Glucose Level 186H, Calcium Level 8.3L, Phosphorus Level 2.4L, Magnesium Level 1.7L, Total Bilirubin 0.2, Aspartate Amino Transf ( AST/SGOT) 23, Alanine Aminotransferase (ALT/SGPT) 25, Alkaline Phosphatase 56, Total Protein 6.5, Albumin 2.6L, Globulin 3.9, Albumin/Globulin Ratio 0.7L Height (Feet): 5 Height (Inches): 4.00 Weight (Pounds): 135 General Appearance: no apparent distress Objective PE not changed NAYE DAY Feb 21, 2017 12:52
[2017-02-21] MEDS ORDERED: Phospha 250 Neutral tab ORAL ONE (13:00)
--- NOTE | 2017-02-21 14:21 | Infectious Diseases Prog Note ---
Assessment/Plan Assessment/Plan ASSESSMENT: The patient is an 82-year-old female with, General weakness, Probable sepsis and urinary tract infection. Urinary tract infection UCX: extended-spectrum beta-lactamases Klebsiella. Wound culture is growing gram-positive cocci (colonization). Acute renal failure, improving. Afebrile. History of renal insufficiency. Dementia. Diabetes. Hyperlipidemia. Hypertension. History of CVA. . PLAN: cont patient on Invanz 1 g daily d# 2 / 7 Monitor CBC. Monitor BMP. Monitor blood culture. Monitor chest x-ray Subjective Allergies: Coded Allergies: Potato (Unverified Allergy, Unknown, 12/26/16) Objective Vital Signs Last 24 Hour Vital Signs Date Time Temp Pulse Resp B/P (MAP) Pulse Ox O2 Delivery O2 Flow Rate FiO2 02/21/17 11:23 97.5 61 21 102/69 97 Room Air 02/21/17 08:26 97.2 53 21 84/55 98 Room Air 02/21/17 07:52 86 17 Room Air 02/21/17 04:00 97.3 66 18 145/66 97 Room Air 02/21/17 00:00 97.5 55 20 95/56 95 Room Air 02/20/17 20:29 90 18 Room Air 02/20/17 20:00 96.8 90 20 101/57 96 Room Air 02/20/17 15:20 97.6 62 21 87/45 95 Room Air Height (Feet): 5 Height (Inches): 4.00 Weight (Pounds): 135 Laboratory Tests Test 02/21/17 11:45 Sodium Level 148 MMOL/L (136-145) H Potassium Level 4.0 MMOL/L (3.5-5.1) Chloride Level 116 MMOL/L (98-107) H Carbon Dioxide Level 23 MMOL/L (21-32) Anion Gap 9 mmol/L (5-15) Blood Urea Nitrogen 30 mg/dL (7-18) H Creatinine 1.3 MG/DL (0.55-1.30) Estimat Glomerular Filtration Rate mL/min (>60) Glucose Level 186 MG/DL (74-106) H Calcium Level 8.3 MG/DL (8.5-10.1) L Phosphorus Level 2.4 MG/DL (2.5-4.9) L Magnesium Level 1.7 MG/DL (1.8-2.4) L Total Bilirubin 0.2 MG/DL (0.2-1.0) Aspartate Amino Transf (AST/SGOT) 23 U/L (15-37) Alanine Aminotransferase (ALT/SGPT) 25 U/L (12-78) Alkaline Phosphatase 56 U/L (46-116) Total Protein 6.5 G/DL (6.4-8.2) Albumin 2.6 G/DL (3.4-5.0) L Globulin 3.9 g/dL Albumin/Globulin Ratio 0.7 (1.0-2.7) L SAVITA RENE M.D. Feb 21, 2017 14:21
--- NOTE | 2017-02-21 22:06 | General Progress Note ---
Assessment/Plan Assessment/Plan encephalopathy lacks capacity -no meds at this [facility] Subjective Allergies: Coded Allergies: Potato (Unverified Allergy, Unknown, 12/26/16) Subjective Attempted to pull on IV access yesterday the daughter bedside her does not speak [place] Objective Last 24 Hour Vital Signs Date Time Temp Pulse Resp B/P (MAP) Pulse Ox O2 Delivery O2 Flow Rate FiO2 02/21/17 11:23 97.5 61 21 102/69 97 Room Air 02/21/17 08:26 97.2 53 21 84/55 98 Room Air 02/21/17 07:52 86 17 Room Air 02/21/17 04:00 97.3 66 18 145/66 97 Room Air 02/21/17 00:00 97.5 55 20 95/56 95 Room Air Intake and Output 02/21/17 02/22/17 19:00 07:00 Intake Total 560 ml Output Total 450 ml Balance 110 ml Intake Oral 350 ml IV Total 210 ml Output Urine Total 450 ml Laboratory Tests 02/21/17 11:45: Sodium Level 148H, Potassium Level 4.0, Chloride Level 116H, Carbon Dioxide Level 23, Anion Gap 9, Blood Urea Nitrogen 30H, Creatinine 1.3, Estimat Glomerular Filtration Rate , Glucose Level 186H, Calcium Level 8.3L, Phosphorus Level 2.4L, Magnesium Level 1.7L, Total Bilirubin 0.2, Aspartate Amino Transf ( AST/SGOT) 23, Alanine Aminotransferase (ALT/SGPT) 25, Alkaline Phosphatase 56, Total Protein 6.5, Albumin 2.6L, Globulin 3.9, Albumin/Globulin Ratio 0.7L Height (Feet): 5 Height (Inches): 4.00 Weight (Pounds): 135 Shaheed Hedrick M.D. Feb 21, 2017 22:06
--- NOTE | 2017-02-21 22:06 | General Progress Note ---
Assessment/Plan Assessment/Plan encephalopathy lacks capacity -no meds at this [facility] Subjective Allergies: Coded Allergies: Potato (Unverified Allergy, Unknown, 12/26/16) Subjective Attempted to pull on IV access yesterday the daughter bedside her does not speak amharic Objective Last 24 Hour Vital Signs Date Time Temp Pulse Resp B/P (MAP) Pulse Ox O2 Delivery O2 Flow Rate FiO2 02/21/17 11:23 97.5 61 21 102/69 97 Room Air 02/21/17 08:26 97.2 53 21 84/55 98 Room Air 02/21/17 07:52 86 17 Room Air 02/21/17 04:00 97.3 66 18 145/66 97 Room Air 02/21/17 00:00 97.5 55 20 95/56 95 Room Air Intake and Output 02/21/17 02/22/17 19:00 07:00 Intake Total 560 ml Output Total 450 ml Balance 110 ml Intake Oral 350 ml IV Total 210 ml Output Urine Total 450 ml Laboratory Tests 02/21/17 11:45: Sodium Level 148H, Potassium Level 4.0, Chloride Level 116H, Carbon Dioxide Level 23, Anion Gap 9, Blood Urea Nitrogen 30H, Creatinine 1.3, Estimat Glomerular Filtration Rate , Glucose Level 186H, Calcium Level 8.3L, Phosphorus Level 2.4L, Magnesium Level 1.7L, Total Bilirubin 0.2, Aspartate Amino Transf ( AST/SGOT) 23, Alanine Aminotransferase (ALT/SGPT) 25, Alkaline Phosphatase 56, Total Protein 6.5, Albumin 2.6L, Globulin 3.9, Albumin/Globulin Ratio 0.7L Height (Feet): 5 Height (Inches): 4.00 Weight (Pounds): 135 Shaheed Hedrick M.D. Feb 21, 2017 22:06
--- NOTE | 2017-02-21 22:06 | General Progress Note ---
Assessment/Plan Assessment/Plan encephalopathy lacks capacity -no meds at this [facility] Subjective Allergies: Coded Allergies: Potato (Unverified Allergy, Unknown, 12/26/16) Subjective Attempted to pull on IV access yesterday the daughter bedside her does not speak turkmen Objective Last 24 Hour Vital Signs Date Time Temp Pulse Resp B/P (MAP) Pulse Ox O2 Delivery O2 Flow Rate FiO2 02/21/17 11:23 97.5 61 21 102/69 97 Room Air 02/21/17 08:26 97.2 53 21 84/55 98 Room Air 02/21/17 07:52 86 17 Room Air 02/21/17 04:00 97.3 66 18 145/66 97 Room Air 02/21/17 00:00 97.5 55 20 95/56 95 Room Air Intake and Output 02/21/17 02/22/17 19:00 07:00 Intake Total 560 ml Output Total 450 ml Balance 110 ml Intake Oral 350 ml IV Total 210 ml Output Urine Total 450 ml Laboratory Tests 02/21/17 11:45: Sodium Level 148H, Potassium Level 4.0, Chloride Level 116H, Carbon Dioxide Level 23, Anion Gap 9, Blood Urea Nitrogen 30H, Creatinine 1.3, Estimat Glomerular Filtration Rate , Glucose Level 186H, Calcium Level 8.3L, Phosphorus Level 2.4L, Magnesium Level 1.7L, Total Bilirubin 0.2, Aspartate Amino Transf ( AST/SGOT) 23, Alanine Aminotransferase (ALT/SGPT) 25, Alkaline Phosphatase 56, Total Protein 6.5, Albumin 2.6L, Globulin 3.9, Albumin/Globulin Ratio 0.7L Height (Feet): 5 Height (Inches): 4.00 Weight (Pounds): 135 Shaheed Hedrick M.D. Feb 21, 2017 22:06
--- NOTE | 2017-02-23 23:00 | Discharge Summary 2 SIG ---
DATE OF ADMISSION: 02/17/2017 DATE OF DISCHARGE: 02/21/2017 REASON FOR ADMISSION: 82-year-old female with history of dementia, blind, bedbound, was brought by the paramedics for evaluation due to the chief complaint of change in mental status. Over the past five days, the patient was getting weak and less responsive and has not been eating well. Laboratory workup revealed BUN- 153 and creatinine -3.7. No leukocytosis. Elevated lactic acid -2.9. Urinalysis with evidence of UTI.Patient was admitted fro acute renal failure and possible sepsis. HOSPITAL COURSE: The patient was admitted to med/surgical floor. The patient was started on IV fluids and empiric antibiotics. ID followed. Urine culture grew Klebsiella pneumoniae ESBL. Blood culture were negative. Wound culture colonized as per ID conclusion. Renal parameters, electrolytes were closely monitored. Welding Equipment Sales Representative followed. Renal failure was improving. Electrolytes were closely monitored and replaced as needed. Nephrotoxics were avoided. Aspirin, statin, and fish oil were continued. Blood sugar was managed with sliding scale of insulin. Hemoglobin A1c at goal -6.9. Blood pressure remained stable with current management. Bowel regimen instituted. CT of the abdomen revealed evidence of fecal impaction, ectopic right kidney. Bowel regimen was instituted. Supplemental oxygen provided as needed to keep saturation above 92%. Pulmonary toilet provided as needed. DVT and GI prophylaxis provided. Diet provided as tolerated with strict aspiration precaution with one-to-one feeding. Psychiatrist closely followed the patient and diagnosed the patient with encephalopathy. Per psychiatrist conclusion, the patient lacks capacity to make her own decision. Prior to discharge, renal parameters down from initial BUN- 153 and creatinine -3.7, to BUN -30 and creatinine -1.3. The patient was stable for discharge home with home health services. Patient will need to complete the course of IV antibiotic/Invanz as recommended by ID specialist FINAL DIAGNOSES: 1. Severe sepsis due to urinary tract infection. 2. Urinary tract infection with Klebsiella ESBL. 3. Acute encephalopathy on chronic end-stage Alzheimer dementia likely due to sepsis and acute renal failure. 4. Acute renal failure on chronic renal insufficiency. 5. Dehydration. 6. Hypernatremia. 7. Mixed hyperlipidemia. 8. Electrolyte imbalance, hyperkalemia, hypomagnesemia, and hypophosphatemia. 9. Fecal impaction. 10. Diabetes 11. History of ischemic cerebrovascular accident. 12. Hypertension DISCHARGE INSTRUCTIONS: The patient discharged home with home health services. Follow up with the medical doctor in the next week. DISCHARGE MEDICATIONS: See medication reconciliation list. Katelynn French M.D. Jill RousseauLewis County General HospitalDino NRuizPRuiz DR: Freida JOB#: [id number] CC: ISHAAN
== END 2017-02-21 13:48 | disposition home health service (06) | DRG 720 ==
LOC: EDBD 11:50 → EMR 12:05 → EDBEDREQ 13:42 → EDBEDREQSVC 13:51 → 2E 13:59 → EDBEDREQ 15:02 → 2E 15:49 → 4E 02-18 21:08
DX: A41.9 Sepsis, unspecified organism (principal); G93.49 Other encephalopathy; N17.9 Acute kidney failure, unspecified; E87.0 Hyperosmolality and hypernatremia; E11.22 Type 2 diabetes mellitus with diabetic chronic kidney disease; N39.0 Urinary tract infection, site not specified; R65.20 Severe sepsis without septic shock; B96.1 Klebsiella pneumoniae [K. pneumoniae] as the cause of diseases classified elsewhere; I12.9 Hypertensive chronic kidney disease with stage 1 through stage 4 chronic kidney disease, or unspecified chronic kidney disease; N18.9 Chronic kidney disease, unspecified; G30.9 Alzheimer's disease, unspecified; F02.80 Dementia in other diseases classified elsewhere, unspecified severity, without behavioral disturbance, psychotic disturbance, mood disturbance, and anxiety; E78.2 Mixed hyperlipidemia; E87.5 Hyperkalemia; E83.42 Hypomagnesemia; E83.39 Other disorders of phosphorus metabolism; K56.41 Fecal impaction; Z86.73 Personal history of transient ischemic attack (TIA), and cerebral infarction without residual deficits; H54.7 Unspecified visual loss; Z79.4 Long term (current) use of insulin; Z16.12 Extended spectrum beta lactamase (ESBL) resistance; E86.0 Dehydration
CPT/HCPCS: 36415; 71010; 74176; 80048; 80053; 80061; 81003; 82550; 82553; 82962; 83036; 83605; 83690; 83735; 84100; 84300; 84443; 84484; 84550; 85025; 87040; 87070; 87086; 87181; 87205; 93005; 94664; 99285; C9399; J1815

== ENCOUNTER 2017-09-26 11:02 | Inpatient (IN) | payer MEDICAID, OTHER ==
[~2017-09-26] VITALS: Ht 152.4 cm; Wt 44.7 kg
[~2017-09-26 11:02] MED LIST changes: +ATORVASTATIN CA40 MG ORAL; +INVANZ1 GM IVPB
[2017-09-26] MEDS ORDERED: cefTRIAXone 1 GM in NS 55 ML IVPB ONE (11:30)
[2017-09-26] MEDS ORDERED: Acetaminophen 650 MG SUPP RECTAL ONE (11:30)
--- NOTE | 2017-09-26 11:31 | Emergency Room Report ---
History of Present Illness General Chief Complaint: Altered Level of Consciousness Source: EMS Present Illness HPI Patient is an 82-year-old female brought in by EMS after increased altered level consciousness. Patient poorly had been less responsive than usual. Patient noted have fever up to 101. The patient reportedly is DO NOT RESUSCITATE however there is no paperwork with the patient this time. History is markedly limited by patient's mental status history is obtained from EMS. Allergies: Coded Allergies: Potato (Unverified Allergy, Unknown, 12/26/16) Patient History Past Medical History: see triage record Last Menstrual Period: Unk Reviewed Nursing Documentation: PMH: Agreed; PSxH: Agreed Nursing Documentation-PMH Hx Cardiac Problems: Yes - hyperlipidemia Hx Hypertension: Yes Hx Diabetes: Yes Hx Cancer: No Hx Gastrointestinal Problems: Yes History Of Psychiatric Problem: Yes - Alzheimers Hx Neurological Problems: Yes Hx Cerebrovascular Accident: Yes - 3-4 years ago Hx Dementia: Yes Hx Alzheimer's Disease: Yes - since 2011 Hx Weakness: Yes Review of Systems All Other Systems: negative except mentioned in HPI Physical Exam Vital Signs Date Time Temp Pulse Resp B/P (MAP) Pulse Ox O2 Delivery O2 Flow Rate FiO2 09/26/17 11:00 101.0 110 16 98/54 94 Room Air 100.9 Sp02 EP Interpretation: reviewed, normal General Appearance: thin, Chronically Ill Head: atraumatic ENT: dry mucus membranes Neck: no bony tend, limited range of motion Respiratory: no respiratory distress, no retraction, rales Cardiovascular #1: no edema, tachycardia Gastrointestinal: non tender, soft Genitourinary: no CVA tenderness Musculoskeletal: decreased range of motion, other - bilateral knee dressing Neurologic: speech normal, motor weakness Skin: normal color Medical Decision Making Diagnostic Impression: Primary Impression: Alzheimer's dementia Additional Impressions: Diabetes mellitus Pneumonia ER Course Patient presented for fever. Differential diagnosis included wasn't limited to pneumonia, urinary tract infection, drug fever, allergic reaction, sepsis, cholecystitis, among others.The chest x-ray one view read by radiology showed evidence of pneumonia. The patient was started on IV fluids as well as IV antibiotics. The patient was noted to have elevated blood sugar. The patient was given insulin. Dr. Len Sanchez was contacted for inpatient management. Patient was noted to be DO NOT RESUSCITATE the per discussion with daughter Labs Test 09/26/17 11:20 09/26/17 11:31 09/26/17 12:05 White Blood Count 7.6 K/UL (4.8-10.8) Red Blood Count 4.80 M/UL (4.20-5.40) Hemoglobin 14.1 G/DL (12.0-16.0) Hematocrit 43.2 % (37.0-47.0) Mean Corpuscular Volume 90 FL (80-99) Mean Corpuscular Hemoglobin 29.3 PG (27.0-31.0) Mean Corpuscular Hemoglobin Concent 32.6 G/DL (32.0-36.0) Red Cell Distribution Width 17.6 % (11.6-14.8) Platelet Count 268 K/UL (150-450) Mean Platelet Volume 7.8 FL (6.5-10.1) Neutrophils (%) (Auto) 71.2 % (45.0-75.0) Lymphocytes (%) (Auto) 20.3 % (20.0-45.0) Monocytes (%) (Auto) 6.9 % (1.0-10.0) Eosinophils (%) (Auto) 0.4 % (0.0-3.0) Basophils (%) (Auto) 1.2 % (0.0-2.0) Sodium Level 149 MMOL/L (136-145) Potassium Level 4.9 MMOL/L (3.5-5.1) Chloride Level 115 MMOL/L (98-107) Carbon Dioxide Level 18 MMOL/L (21-32) Anion Gap 16 mmol/L (5-15) Blood Urea Nitrogen 88 mg/dL (7-18) Creatinine 1.3 MG/DL (0.55-1.30) Estimat Glomerular Filtration Rate mL/min (>60) Glucose Level 338 MG/DL (74-106) Lactic Acid Level 1.60 mmol/L (0.4-2.0) Calcium Level 9.3 MG/DL (8.5-10.1) Phosphorus Level 3.4 MG/DL (2.5-4.9) Magnesium Level 1.9 MG/DL (1.8-2.4) Total Bilirubin 0.5 MG/DL (0.2-1.0) Aspartate Amino Transf (AST/SGOT) 50 U/L (15-37) Alanine Aminotransferase (ALT/SGPT) 70 U/L (12-78) Alkaline Phosphatase 193 U/L (46-116) Total Creatine Kinase 56 U/L (26-308) Creatine Kinase MB < 0.5 NG/ML (0.0-3.6) Creatine Kinase MB Relative Index Troponin I 0.041 ng/mL (0.000-0.056) Total Protein 7.5 G/DL (6.4-8.2) Albumin 2.5 G/DL (3.4-5.0) Globulin 5.0 g/dL Albumin/Globulin Ratio 0.5 (1.0-2.7) Arterial Blood pH 7.360 (7.350-7.450) Arterial Blood Partial Pressure CO2 30.0 mmHg (35.0-45.0) Arterial Blood Partial Pressure O2 92.0 mmHg (75.0-100.0) Arterial Blood HCO3 16.8 mmol/L (22.0-26.0) Arterial Blood Oxygen Saturation 96.3 % (92.0-98.0) Arterial Blood Base Excess 7.3 Doug Test Positive Urine Color Yellow Urine Appearance Cloudy Urine pH 5 (4.5-8.0) Urine Specific Marshall 1.015 (1.005-1.035) Urine Protein Negative (NEGATIVE) Urine Glucose (UA) Negative (NEGATIVE) Urine Ketones 1+ (NEGATIVE) Urine Occult Blood Negative (NEGATIVE) Urine Nitrite Negative (NEGATIVE) Urine Bilirubin Negative (NEGATIVE) Urine Urobilinogen 1 MG/DL (0.0-1.0) Urine Leukocyte Esterase 1+ (NEGATIVE) Urine RBC 0-2 /HPF (0 - 2) Urine WBC 2-4 /HPF (0 - 2) Urine Squamous Epithelial Cells Few /LPF (NONE/OCC) Urine Bacteria Few /HPF (NONE) Last Vital Signs Date Time Temp Pulse Resp B/P (MAP) Pulse Ox O2 Delivery O2 Flow Rate FiO2 09/26/17 11:00 101.0 110 16 98/54 94 Room Air 100.9 Status: unchanged Disposition: ADMITTED INPATIENT Condition: Serious Leonel Kingsley MD Sep 26, 2017 11:31
[2017-09-26 12:05] LABS: ANION GAP 16 mmol/L (5-15); BLOOD UREA NITROGEN 88 mg/dL (7-18); CALCIUM 9.3 MG/DL (8.5-10.1); CARBON DIOXIDE 18 MMOL/L (21-32); CHLORIDE 115 MMOL/L (98-107); CREATININE 1.3 MG/DL (0.55-1.30); POTASSIUM 4.9 MMOL/L (3.5-5.1); SODIUM 149 MMOL/L (136-145)
[2017-09-26 12:14] LABS: BASOPHILS % (AUTO) 1.2 % (0.0-2.0); EOSINOPHILS % (AUTO) 0.4 % (0.0-3.0); HEMATOCRIT 43.2 % (37.0-47.0); HEMOGLOBIN 14.1 G/DL (12.0-16.0); LYMPHOCYTES % (AUTO) 20.3 % (20.0-45.0); MEAN CORPUSCULAR VOLUME 90 FL (80-99); MONOCYTES % (AUTO) 6.9 % (1.0-10.0); NEUTROPHILS % (AUTO) 71.2 % (45.0-75.0); PLATELET COUNT 268 K/UL (150-450); RED CELL DISTRIBUTION WIDTH 17.6 % (11.6-14.8); WHITE BLOOD COUNT 7.6 K/UL (4.8-10.8)
[2017-09-26 12:19] LABS: ALANINE AMINOTRANSFERASE 70 U/L (12-78); ALBUMIN 2.5 G/DL (3.4-5.0); ALBUMIN/GLOBULIN RATIO 0.5 (1.0-2.7); ALKALINE PHOSPHATASE 193 U/L (46-116); ASPARTATE AMINO TRANSFERASE 50 U/L (15-37); BILIRUBIN,TOTAL 0.5 MG/DL (0.2-1.0); CKMB < 0.5 NG/ML (0.0-3.6); CREATINE KINASE 56 U/L (26-308); PHOSPHORUS 3.4 MG/DL (2.5-4.9)
--- NOTE | 2017-09-26 12:32 | Diagnostic Imaging Report ---
EXAM: XR Chest, 1 View CLINICAL HISTORY: SOB TECHNIQUE: Frontal view of the chest. COMPARISON: No relevant prior studies available. FINDINGS: Lungs: Increasing patchy infiltrates in the right upper lung. Consider pneumonia. Pleural space: Unremarkable. No pneumothorax. Heart: Unremarkable. No cardiomegaly. Mediastinum: Unremarkable. Bones/joints: Unremarkable. IMPRESSION: Increasing patchy infiltrates in the right upper lung. Consider pneumonia.
[2017-09-26] MEDS ORDERED: D5W IVPB ONE (13:00)
[2017-09-26] MEDS ORDERED: AZITHROMYCIN IVPB ONE (13:00)
[2017-09-26 13:05] LABS: BILIRUBIN, URINE NEGATIVE (NEGATIVE); GLUCOSE, URINE (UA) NEGATIVE (NEGATIVE); KETONES,URINE 1+ (NEGATIVE); LEUKOCYTE ESTERASE ,URINE 1+ (NEGATIVE); NITRITE,URINE NEGATIVE (NEGATIVE); PH,URINE 5 (4.5-8.0); PROTEIN,URINE NEGATIVE (NEGATIVE); UROBILINOGEN,URINE 1 MG/DL (0.0-1.0)
[2017-09-26 13:07] LABS: APPEARANCE,URINE CLOUDY; COLOR,URINE YELLOW
[2017-09-26] MEDS ORDERED: DONEPEZIL HCL10 MG ORAL (13:12)
[2017-09-26] MEDS ORDERED: TEMAZEPAM15 MG ORAL (13:12)
[2017-09-26] MEDS ORDERED: Insulin Human Regular 100units/ml 3ml SUBQ ONE (14:00)
[2017-09-26 14:12] VITALS: BP 102/72
--- NOTE | 2017-09-26 15:11 | History & Physical ---
History and Physical History & Physicial HP dictated # [id number] Len Sanchez MD Sep 26, 2017 15:11
[2017-09-26 16:00] VITALS: BP 98/68
[2017-09-26] MEDS: NovoLOG Insulin Flexpen SUBQ SCH ×2 (17:07→21:36)
[2017-09-26] MEDS: Aspirin EC 81mg tab ORAL SCH (17:18)
[2017-09-26] MEDS: D5 1/2NS 1,000 ML IV SCH (17:19)
[2017-09-26] MEDS: Heparin 5000 units/ml inj SUBQ SCH ×2 (17:20→21:37)
[2017-09-26 20:00] VITALS: BP 128/56
--- NOTE | 2017-09-26 20:59 | History and Physical Report ---
DATE OF ADMISSION: 09/26/2017 DATE OF ADMISSION: 09/26/2017 CHIEF COMPLAINT: The patient was found to have change in mental status. HISTORY OF PRESENT ILLNESS: This is an 82-year-old who apparently lives at home. The patient has been poorly responsive and noted to have fever of 102. The patient apparently was Do Not Resuscitate but no paperwork. She is not able to provide any history because of underlying history of Alzheimer as well. The patient was brought into the emergency room and was admitted and chest x-ray was also suggestive of some pneumonia. PAST MEDICAL HISTORY: Includes history of hyperlipidemia, hypertension, history of diabetes, history of Alzheimer's, previous history of CVA, dementia. MEDICATIONS: Reviewed in EMR. SOCIAL HISTORY: Unobtainable. REVIEW OF SYSTEMS: Unobtainable. PHYSICAL EXAMINATION: GENERAL: The patient is an elderly female, in no acute distress. Lethargic. VITAL SIGNS: Blood pressure 98/54, pulse 110, respiratory rate is 16, temperature 101. HEENT: Pale conjunctivae. Anicteric sclerae. NECK: Supple. LUNGS: Clear to auscultation. HEART: S1, S2 without murmurs or rubs. ABDOMEN: Soft, nontender. EXTREMITIES: No edema. LABORATORY DATA: UA is unremarkable. CBC shows WBC of 7.6, hematocrit 43.2, hemoglobin 14.1, platelets 268,000. Chemistry panel shows serum sodium 149, potassium 4.9, chloride 115, carbon dioxide 18, BUN is 88, creatinine 1.3, and blood sugar 338. Albumin is 2.5. Blood gas was done, ABG, pH 7.36, pCO2 of 30, pO2 of . ASSESSMENT AND PLAN: This is an 82-year-old female, who was admitted with acute encephalopathy, likely sepsis with fevers. Pneumonia is likely the cause. She has also acute renal failure with high BUN to creatinine ratio consistent with prerenal picture. Also, she has hypernatremia again with free water deficit. The patient will be hydrated with D5 half-normal saline at 75 mL an hour. She will be going to be on sliding scale of insulin, IV antibiotics. Labs will be followed. I will ask ID as well as Pulmonary to see the patient. Adjustment will be made in the patient's regimen. Len Sanchez M.D. DR: Odalis JOB#: [id number] CC: ISHAAN
[2017-09-26] MEDS: Atorvastatin 20mg tab ORAL SCH (21:37)
[2017-09-27] VITALS: BP 100/69
[2017-09-27 04:00] VITALS: BP 111/76
[2017-09-27] MEDS: D5 1/2NS 1,000 ML IV SCH (06:02)
[2017-09-27] MEDS: NovoLOG Insulin Flexpen SUBQ SCH ×4 (06:07→21:20)
[2017-09-27 07:14] LABS: BASOPHILS % (AUTO) 0.9 % (0.0-2.0); EOSINOPHILS % (AUTO) 2.2 % (0.0-3.0); HEMATOCRIT 38.7 % (37.0-47.0); HEMOGLOBIN 12.6 G/DL (12.0-16.0); LYMPHOCYTES % (AUTO) 26.4 % (20.0-45.0); MEAN CORPUSCULAR VOLUME 90 FL (80-99); MONOCYTES % (AUTO) 6.5 % (1.0-10.0); PLATELET COUNT 225 K/UL (150-450); RED CELL DISTRIBUTION WIDTH 17.5 % (11.6-14.8); WHITE BLOOD COUNT 6.6 K/UL (4.8-10.8)
[2017-09-27 07:26] LABS: ALANINE AMINOTRANSFERASE 63 U/L (12-78); ALBUMIN 2.5 G/DL (3.4-5.0); ALBUMIN/GLOBULIN RATIO 0.6 (1.0-2.7); ALKALINE PHOSPHATASE 166 U/L (46-116); ANION GAP 13 mmol/L (5-15); ASPARTATE AMINO TRANSFERASE 39 U/L (15-37); BILIRUBIN,TOTAL 0.5 MG/DL (0.2-1.0); BLOOD UREA NITROGEN 60 mg/dL (7-18); CALCIUM 8.8 MG/DL (8.5-10.1); CARBON DIOXIDE 23 MMOL/L (21-32); CHLORIDE 117 MMOL/L (98-107); CREATININE 0.9 MG/DL (0.55-1.30); POTASSIUM 3.5 MMOL/L (3.5-5.1); SODIUM 153 MMOL/L (136-145)
[2017-09-27 08:00] VITALS: BP 100/72
[2017-09-27] MEDS: Aspirin EC 81mg tab ORAL SCH (08:42)
[2017-09-27] MEDS: Heparin 5000 units/ml inj SUBQ SCH ×2 (08:43→21:20)
[2017-09-27] MEDS: cefTRIAXone 1 GM in D5W 110 ML IV SCH (11:25)
[2017-09-27 12:00] VITALS: BP 109/68
--- NOTE | 2017-09-27 13:06 | General Progress Note ---
Assessment/Plan Problem List: (1) Altered mental status ICD Codes: R41.82 - Altered mental status, unspecified SNOMED: 157653283 (2) Pneumonia ICD Codes: J18.9 - Pneumonia, unspecified organism SNOMED: 901242121 (3) Diabetes mellitus ICD Codes: E11.9 - Type 2 diabetes mellitus without complications SNOMED: 10148153 (4) Alzheimer's dementia ICD Codes: G30.9 - Alzheimer's disease, unspecified SNOMED: 58779223 (5) Hypernatremia ICD Codes: E87.0 - Hyperosmolality and hypernatremia SNOMED: 75488258 Assessment/Plan change IVF to D5W abxs start puree diet Discussed with daughter in-law through credit control manager at length Neuro consult discussed with RN Subjective Allergies: Coded Allergies: Potato (Unverified Allergy, Unknown, 12/26/16) Subjective more alert Objective Last 24 Hour Vital Signs Date Time Temp Pulse Resp B/P (MAP) Pulse Ox O2 Delivery O2 Flow Rate FiO2 09/27/17 08:00 72 09/27/17 08:00 98.3 74 19 100/72 98 Room Air 98.3 09/27/17 04:00 73 09/27/17 04:00 98.0 82 20 111/76 95 Room Air 98.0 09/27/17 00:00 97.3 79 20 100/69 95 Room Air 97.3 09/27/17 00:00 81 09/26/17 20:00 97.3 97 20 128/56 96 Room Air 97.3 09/26/17 20:00 100 09/26/17 16:00 97.0 86 20 98/68 98 Room Air 97.0 09/26/17 16:00 81 09/26/17 14:55 98.3 91 24 102/72 100 Room Air 98.3 09/26/17 14:12 98.3 91 24 102/72 100 Room Air 98.3 Intake and Output 09/26/17 09/27/17 19:00 07:00 Intake Total 1225 ml 898 ml Output Total 30 ml Balance 1195 ml 898 ml Intake IV Total 1225 ml 898 ml Output Urine Total 30 ml # Voids 1 2 # Bowel Movements 1 Laboratory Tests 09/27/17 05:30: White Blood Count 6.6, Red Blood Count 4.30, Hemoglobin 12.6, Hematocrit 38.7, Mean Corpuscular Volume 90, Mean Corpuscular Hemoglobin 29.3, Mean Corpuscular Hemoglobin Concent 32.5, Red Cell Distribution Width 17.5H, Platelet Count 225, Mean Platelet Volume 7.7, Neutrophils (%) (Auto) 64.0, Lymphocytes (%) (Auto) 26.4, Monocytes (%) (Auto) 6.5, Eosinophils (%) (Auto) 2.2, Basophils (%) (Auto ) 0.9, Sodium Level 153H, Potassium Level 3.5, Chloride Level 117H, Carbon Dioxide Level 23, Anion Gap 13, Blood Urea Nitrogen 60H, Creatinine 0.9, Estimat Glomerular Filtration Rate , Glucose Level 215#H, Hemoglobin A1c 8.3H, Calcium Level 8.8, Total Bilirubin 0.5, Aspartate Amino Transf (AST/SGOT) 39H, Alanine Aminotransferase (ALT/SGPT) 63, Alkaline Phosphatase 166H, Total Protein 6.8, Albumin 2.5L, Globulin 4.3, Albumin/Globulin Ratio 0.6L, Legionella pneumophila Group 1 Ab [Pending], Legionella pneumophilia IgM Group 1 [Pending], Mycoplasma pneumoniae IgG Antibody [Pending], Mycoplasma pneumoniae IgM Ab Titer [Pending] Height (Feet): 5 Height (Inches): 0.00 Weight (Pounds): 87 Cardiovascular: normal rate Respiratory/Chest: lungs clear Edema: no edema noted Generalized Len Sanchez MD Sep 27, 2017 13:06
--- NOTE | 2017-09-27 13:33 | Consultation ---
History of Present Illness General Date patient seen: Sep 27, 2017 Chief Complaint: Altered Level of Consciousness Reason for Consultation: abnormal lft; sacral / hip ulcers Present Illness HPI 82F presented with altered mental status. lives at home but recently declining. came to ED and admitted for medical care and management. during admission noted to have elevated alk phos. also noted to have bilateral hip ulcers and sacral ulcers. some mild skin bruising on lower extremities. surgery called to evaluate wounds for care plan. Allergies: Coded Allergies: Potato (Unverified Allergy, Unknown, 12/26/16) Medication History Scheduled Aspirin* (Aspir 81*), 81 MG ORAL DAILY, (Reported) Aspirin* (Aspir 81*), 81 MG ORAL DAILY, (Reported) Atorvastatin Calcium* (Atorvastatin Calcium*), 20 MG ORAL BEDTIME, (Reported) Atorvastatin Calcium* (Atorvastatin Calcium*), 40 MG ORAL BEDTIME, (Reported) Cholecalciferol (Vitamin D3) (Vitamin D-400*), 400 UNITS ORAL DAILY, (Reported) Clopidogrel Bisulfate* (Plavix*), 75 MG ORAL DAILY, (Reported) Donepezil Hcl* (Donepezil Hcl*), 5 MG ORAL DAILY, (Reported) Donepezil Hcl* (Donepezil Hcl*), 10 MG ORAL DAILY, (Reported) Ertapenem Sodium* (INVanz*), 1 GM IVPB Q24H Glimepiride* (Glimepiride*), 4 MG ORAL BEFORE BREAKFAST, (Reported) Glimepiride* (Glimepiride*), 4 MG ORAL BID, (Reported) Insulin Detemir (Levemir Flexpen), 5 UNITS SUBQ DAILY Megestrol Acetate (Megestrol Acetate), 20 MG ORAL DAILY, (Reported) Memantine Hcl* (Namenda*), 10 MG ORAL BID, (Reported) Memantine Hcl* (Namenda*), 10 MG ORAL DAILY, (Reported) Memantine Hcl* (Namenda*), 10 MG ORAL TWICE A DAY, (Reported) Metformin Hcl* (Metformin Hcl*), 1,000 MG ORAL BID, (Reported) Metformin Hcl* (Metformin Hcl*), 1,000 MG ORAL BID, (Reported) Pantoprazole* (Pantoprazole*), 40 MG ORAL DAILY, (Reported) Paroxetine Hcl* (Paxil*), 10 MG ORAL DAILY, (Reported) Temazepam (Temazepam*), 15 MG ORAL BEDTIME, (Reported) Patient History Limited by: medical condition History Provided By: Medical Record, PMD Healthcare decision maker N Resuscitation status Do Not Resuscitate Advanced Directive on File Past Medical/Surgical History Past Medical/Surgical History: (1) Abnormal liver function test (2) Sacral decubitus ulcer, stage III (3) ATN (acute tubular necrosis) (4) DKA (diabetic ketoacidoses) (5) Hyperglycemia (6) Uncontrolled diabetes mellitus (7) Altered level of consciousness (8) Acute encephalopathy (9) Pneumonia (10) Diabetes mellitus (11) Alzheimer's dementia (12) Altered mental status (13) Hypernatremia Review of Systems ROS Narrative cannot obtain given patients medical condition Physical Exam General Appearance: no apparent distress Lines, tubes and drains: peripheral HEENT: normocephalic, atraumatic Neck: normal inspection Respiratory/Chest: normal breath sounds, no respiratory distress, no accessory muscle use Cardiovascular/Chest: normal rate Abdomen: normal bowel sounds, soft, no organomegaly, no mass Extremities: other - bilateral lower extremity skin brusing Skin Exam: warm/dry Last 24 Hour Vital Signs Date Time Temp Pulse Resp B/P (MAP) Pulse Ox O2 Delivery O2 Flow Rate FiO2 09/27/17 08:00 72 09/27/17 08:00 98.3 74 19 100/72 98 Room Air 98.3 09/27/17 04:00 73 09/27/17 04:00 98.0 82 20 111/76 95 Room Air 98.0 09/27/17 00:00 97.3 79 20 100/69 95 Room Air 97.3 09/27/17 00:00 81 09/26/17 20:00 97.3 97 20 128/56 96 Room Air 97.3 09/26/17 20:00 100 09/26/17 16:00 97.0 86 20 98/68 98 Room Air 97.0 09/26/17 16:00 81 09/26/17 14:55 98.3 91 24 102/72 100 Room Air 98.3 09/26/17 14:12 98.3 91 24 102/72 100 Room Air 98.3 Intake and Output 09/26/17 09/27/17 19:00 07:00 Intake Total 1225 ml 898 ml Output Total 30 ml Balance 1195 ml 898 ml Intake IV Total 1225 ml 898 ml Output Urine Total 30 ml # Voids 1 2 # Bowel Movements 1 Laboratory Tests Test 09/27/17 05:30 White Blood Count 6.6 K/UL (4.8-10.8) Red Blood Count 4.30 M/UL (4.20-5.40) Hemoglobin 12.6 G/DL (12.0-16.0) Hematocrit 38.7 % (37.0-47.0) Mean Corpuscular Volume 90 FL (80-99) Mean Corpuscular Hemoglobin 29.3 PG (27.0-31.0) Mean Corpuscular Hemoglobin Concent 32.5 G/DL (32.0-36.0) Red Cell Distribution Width 17.5 % (11.6-14.8) H Platelet Count 225 K/UL (150-450) Mean Platelet Volume 7.7 FL (6.5-10.1) Neutrophils (%) (Auto) 64.0 % (45.0-75.0) Lymphocytes (%) (Auto) 26.4 % (20.0-45.0) Monocytes (%) (Auto) 6.5 % (1.0-10.0) Eosinophils (%) (Auto) 2.2 % (0.0-3.0) Basophils (%) (Auto) 0.9 % (0.0-2.0) Sodium Level 153 MMOL/L (136-145) H Potassium Level 3.5 MMOL/L (3.5-5.1) Chloride Level 117 MMOL/L (98-107) H Carbon Dioxide Level 23 MMOL/L (21-32) Anion Gap 13 mmol/L (5-15) Blood Urea Nitrogen 60 mg/dL (7-18) H Creatinine 0.9 MG/DL (0.55-1.30) Estimat Glomerular Filtration Rate mL/min (>60) Glucose Level 215 MG/DL (74-106) #H Hemoglobin A1c 8.3 % (4.3-6.0) H Calcium Level 8.8 MG/DL (8.5-10.1) Total Bilirubin 0.5 MG/DL (0.2-1.0) Aspartate Amino Transf (AST/SGOT) 39 U/L (15-37) H Alanine Aminotransferase (ALT/SGPT) 63 U/L (12-78) Alkaline Phosphatase 166 U/L (46-116) H Total Protein 6.8 G/DL (6.4-8.2) Albumin 2.5 G/DL (3.4-5.0) L Globulin 4.3 g/dL Albumin/Globulin Ratio 0.6 (1.0-2.7) L Legionella pneumophila Group 1 Ab Pending Legionella pneumophilia IgM Group 1 Pending Mycoplasma pneumoniae IgG Antibody Pending Mycoplasma pneumoniae IgM Ab Titer Pending Height (Feet): 5 Height (Inches): 0.00 Weight (Pounds): 87 Medications Current Medications Medications (Trade) Dose Ordered Sig/Ninfa Route PRN Reason Start Time Stop Time Status Last Admin Dose Admin Acetaminophen (Tylenol) 650 mg Q4H PRN ORAL Mild Pain (Pain Scale 1-3) 09/26/17 15:00 10/26/17 14:59 Aspirin (Ecotrin) 81 mg DAILY ORAL 09/26/17 16:00 10/26/17 15:59 09/27/17 08:42 Atorvastatin Calcium (Lipitor) 20 mg BEDTIME ORAL 09/26/17 21:00 10/26/17 20:59 09/26/17 21:37 Azithromycin 500 mg/Dextrose 275 ml @ 275 mls/hr Q24H IV 09/27/17 14:00 10/04/17 13:59 Ceftriaxone Sodium 1 gm/ Dextrose 110 ml @ 220 mls/hr Q24H IV 09/27/17 12:00 10/04/17 11:59 09/27/17 11:25 Dextrose 1,000 ml @ 75 mls/hr [id number] IV 09/27/17 11:45 10/27/17 11:44 09/27/17 13:10 Dextrose (Dextrose 50%) 25 ml STAT PRN IV Hypoglycemia 09/26/17 15:15 10/26/17 15:14 Dextrose (Dextrose 50%) 50 ml STAT PRN IV Hypoglycemia 09/26/17 15:15 10/26/17 15:14 Heparin Sodium (Porcine) (Heparin 5000 units/ml) 5,000 units EVERY 12 HOURS SUBQ 09/26/17 15:00 10/26/17 14:59 09/27/17 08:43 Insulin Aspart (NovoLOG) BEFORE MEALS AND HS SUBQ 09/26/17 16:30 10/26/17 16:29 09/27/17 11:26 Pantoprazole (Protonix) 40 mg DAILY ORAL 09/26/17 16:00 10/26/17 15:59 09/27/17 08:42 Assessment/Plan Problem List: (1) Sacral decubitus ulcer, stage III Assessment & Plan: Stage 3 sacral decubitus ulcer - see wound care photos. two small ulcers. midline deep stage 3 but fortunately currently small. no signs of active infection. no odor. no drainage. -keep pressure off wound. turn q2h. foam protective dressing. skin protectant cream prn Bilateral trochanter ulcers with skin breakdown. small area of eschar. no signs of active infection. no drainage. no odor. --keep pressure off wound. turn q2h. foam protective dressing. skin protectant cream prn wounds present upon admission. need to ensure healing air soft mattress care as above ultrasound abdomen to evaluate liver/gb. trend labs. thank you for this consultation. ICD Codes: L89.153 - Pressure ulcer of sacral region, stage 3 SNOMED: 867359278, 341211150 (2) Abnormal liver function test ICD Codes: R94.5 - Abnormal results of liver function studies SNOMED: 161774914 Status: not improved Harsh Davis Sep 27, 2017 13:32
[2017-09-27] MEDS: Azithromycin 500 MG in D5W 275 ML IV SCH (14:41)
[2017-09-27 16:00] VITALS: BP 105/64
[2017-09-27] MEDS ORDERED: Vancomycin 1gm in D5W 275ml IVPB SCH (16:30)
[2017-09-27] MEDS ORDERED: D5 1/2NS 1000ml IV ONE (17:10)
[2017-09-27 20:00] VITALS: BP 98/61
--- NOTE | 2017-09-27 20:15 | Consultation ---
DATE OF CONSULTATION: 09/27/2017 INFECTIOUS DISEASES CONSULTATION CONSULTING PHYSICIAN: Zackery Coronado M.D. REFERRING PHYSICIAN: Len Sanchez M.D. This consultation has been done on behalf of Dr. Jasiel Sanchez. REASON FOR CONSULTATION: Fever and pneumonia. HISTORY OF PRESENTING ILLNESS: This is an 82-year-old female with history of hypertension, hyperlipidemia, diabetes, dementia, and CVA, who comes in with fevers. She was brought in to [place] emergency room where she was found to have pneumonia and an Infectious Diseases consultation has been obtained for antibiotics. PAST MEDICAL HISTORY: 1. History of hypertension. 2. Hyperlipidemia. 3. Diabetes. 4. Alzheimer's disease. 5. CVA. 6. Dementia. MEDICATIONS: As an inpatient, the patient is on ceftriaxone, azithromycin, atorvastatin, insulin, aspirin, Protonix, subcutaneous heparin, and Tylenol. ALLERGIES: She is allergic to potato. SOCIAL HISTORY: Unknown. FAMILY HISTORY: Unknown. REVIEW OF SYSTEMS: Unable to obtain currently. PHYSICAL EXAMINATION: VITAL SIGNS: Temperature of 98.3, T-max of 101, pulse of 74, respiratory rate of 19, blood pressure 100/72, and O2 saturation of 98%. HEENT: Pupils equally reactive to light and accommodation. Mouth appears clean without thrush. NECK: Supple. No adenopathy. No JVD. CARDIOVASCULAR: Regular rate and rhythm. No murmurs. LUNGS: Clear to auscultation bilaterally. No crackles. No wheezes. ABDOMEN: Soft, nontender. No organomegaly. EXTREMITIES: No cyanosis, no clubbing, no edema. LABORATORY AND DIAGNOSTIC DATA: White count 6.6, hemoglobin 12.6, hematocrit 38.7, MCV 90, and platelet count 225 with neutrophils of 64%. Sodium 153, potassium 3.5, chloride 117, bicarbonate 23, BUN 16, creatinine 0.9, glucose 215, and calcium 8.8. Total bilirubin 0.5, AST 39, ALT 63, and alkaline phosphatase 166. Total protein 6.8, albumin 2.5. UA showing 2 to 4 white cells. Chest x-ray showing increased patchy infiltrates in the right upper lung with possible pneumonia. ASSESSMENT: 1. This is an 82-year-old lady with history of diabetes, hypertension, CVA, and dementia, who comes in with fevers and is found to have a right upper lobe pneumonia. 2. concern regarding community-acquired versus atypical pneumonia. 3. Diabetes. 4. Hypertension. 5. Dementia. PLAN: 1. Continue ceftriaxone and azithromycin. 2. We will order sputum for Gram stain and culture. 3. We will order for serum Legionella antibody. 4. We will order for mycoplasma serology. 5. We will follow up cultures and adjust antibiotics accordingly. I would like to thank, Dr. Len Sanchez, for this consultation. Zackery Coronado M.D. DR: SEAN JOB#: [id number] CC: Len Sanchez M.D.; Fax#: [phone]
[2017-09-27] MEDS: Atorvastatin 20mg tab ORAL SCH (21:21)
[2017-09-28] VITALS: BP 114/70
[2017-09-28 04:12] VITALS: BP 94/48
[2017-09-28] MEDS: NovoLOG Insulin Flexpen SUBQ SCH ×4 (05:55→20:44)
[2017-09-28 07:05] LABS: ANION GAP 13 mmol/L (5-15); BLOOD UREA NITROGEN 47 mg/dL (7-18); CALCIUM 8.6 MG/DL (8.5-10.1); CARBON DIOXIDE 21 MMOL/L (21-32); CHLORIDE 110 MMOL/L (98-107); POTASSIUM 3.9 MMOL/L (3.5-5.1); SODIUM 144 MMOL/L (136-145)
[2017-09-28 08:00] VITALS: BP 96/73
[2017-09-28] MEDS: Aspirin EC 81mg tab ORAL SCH (09:00)
[2017-09-28] MEDS: Heparin 5000 units/ml inj SUBQ SCH ×2 (09:05→20:46)
--- NOTE | 2017-09-28 11:04 | Consultation ---
Consult Note Consult Note NEUROLOGY CONSULTATION: HISTORY: Ms. 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 She was hospitalized on 09/26/17 for an alteration in mental state associated with fevers and elevated blood sugars. As per her [id number] her baseline neurologic function is that she is aphasic, unable to communicate, unable to walk. This consultation was requested to evaluate the patient for her altered mental state. PAST MEDICAL HISTORY: Significant for hypertension, diabetes mellitus, cerebrovascular disease with prior stroke, dementia, and coronary artery disease. FAMILY HISTORY: Significant for high blood pressure and diabetes mellitus in other family members. PERSONAL HISTORY: Home: She lives with family at home. Work: She is a retired housewife. Habits: There is no history of alcohol, tobacco, or illicit drug use. PHYSICAL EXAMINATION: GENERAL: She is a well-developed, well-nourished, lady lying in bed, in no acute distress. VITAL SIGNS: Pulse 64/minute. Blood pressure 94/48 mmHg. Respirations 20/minute. Temperature 98.1 degrees Fahrenheit. HEAD: Normocephalic and atraumatic. NECK: No neck rigidity was observed. EENT EXAMINATION: Benign except for strabismus. NEUROLOGICAL EXAMINATION: MENTAL STATUS EXAMINATION: She was awake and looked alert. She was unable to communicate in [place]z as per her daughter in law. She was unable to follow simple commands. SPEECH: She had a moderate dysarthria. LANGUAGE: She was unable to comprehend and express herself even in [place]yr[place]z with family members translating for her. CRANIAL NERVE EXAMINATION: II: She did blink to threat. She was unable to cooperate for confrontation testing. III, IV and : External ocular movements were restricted in both eyes and she had bilateral shifting inotropia. V: She had normal facial sensations and the temporales, masseters and pterygoids function normally. VII: She had right seventh central facial paresis. VIII: She seemed to be able to hear sounds and had no nystagmus. IX and X: The gag reflex was present. XI: The sternocleidomastoids and trapezii did function. XII: The tongue was in the midline without any fasciculations or atrophy. MOTOR SYSTEM: The tone was normal in all 4 extremities. Examination of muscle mass revealed no focal wasting. Examination of power was impossible to perform because of her inability to cooperate. 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 SENSORY EXAMINATION: She responded appropriately to deep pain. Other sensory modalities could not be tested. REFLEXES: 0 at the biceps, triceps, brachioradialis, knees, and ankles. Plantar responses were flexor bilaterally. COORDINATION, STANCE & GAIT: Could not be tested. DIAGNOSTIC IMPRESSION: 1. Ms. Taylor To is an 82-year-old, right handed, lady, who does have a past history of hypertension, diabetes mellitus, coronary artery disease, cerebrovascular disease with prior strokes and dementia, who was hospitalized on 09/26/17 for an alteration in mental state associated with fevers and elevated blood sugars. 2. On neurological examination, at this time, she does demonstrate generalized cerebral dysfunction of a moderately severe degree. 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 In addition, she seems to be aphasic and dysarthric. 3. Laboratory data have revealed elevated blood sugars as high as in the 500s a low albumin and abnormal LFTs 4. The patient's history and neurological examination are most compatible with an acute encephalopathic process related to blood sugars out of control, superimposed on old structural brain disease due to cerebrovascular disease, and a primary degenerative dementia. RECOMMENDATIONS: 1. Agree with management thus far. 2. Better glycemic control. 3. Treatment of infectious processes as per Dr Coronado. Thank you for entrusting me with the care of Ms. Maureen To. I shall follow her with you. CODI TROTTER M.D., M.S.P.CODI ESPINAL Sep 28, 2017 11:03
--- NOTE | 2017-09-28 11:09 | Infectious Diseases Prog Note ---
Assessment/Plan Assessment/Plan antibiotics : vancomycin iv, ceftriaxone, azithromycin A 1. pneumonia 2. + blood cultures with gram positive cocci 3. diabetes mellitus 4. hypertension 5. dementia P 1. continue vancomycin iv, ceftriaxone, azithromycin 2. will follow up cultures Subjective ROS Limited/Unobtainable: Yes Allergies: Coded Allergies: Potato (Unverified Allergy, Unknown, 12/26/16) Objective Vital Signs Last 24 Hour Vital Signs Date Time Temp Pulse Resp B/P (MAP) Pulse Ox O2 Delivery O2 Flow Rate FiO2 09/28/17 08:00 68 09/28/17 08:00 98.1 70 18 96/73 98 Room Air 98.1 09/28/17 04:12 98.1 64 20 94/48 99 Room Air 98.1 09/28/17 03:41 62 09/28/17 00:00 97.3 71 20 114/70 99 Room Air 97.3 09/27/17 23:52 72 09/27/17 20:00 97.2 69 20 98/61 99 Room Air 97.2 09/27/17 19:34 68 09/27/17 16:00 79 09/27/17 16:00 97.5 82 20 105/64 96 Room Air 97.5 09/27/17 12:00 98.7 73 19 109/68 98 Room Air 98.7 09/27/17 12:00 80 Height (Feet): 5 Height (Inches): 0.00 Weight (Pounds): 87 Respiratory/Chest: lungs clear Cardiovascular: normal rate, regular rhythm, no gallop/murmur Abdomen: soft, non tender Extremities: no edema Microbiology Date/Time Source Procedure Growth Status 09/26/17 11:30 Blood Blood Culture - Preliminary Gram Positive Cocci Resulted 09/26/17 11:20 Blood Blood Culture - Preliminary Gram Positive Cocci Resulted Laboratory Tests Test 09/27/17 21:50 09/28/17 05:30 Glucose Level 592 MG/DL (74-106) #*H 353 MG/DL (74-106) #H Sodium Level 144 MMOL/L (136-145) Potassium Level 3.9 MMOL/L (3.5-5.1) Chloride Level 110 MMOL/L (98-107) H Carbon Dioxide Level 21 MMOL/L (21-32) Anion Gap 13 mmol/L (5-15) Blood Urea Nitrogen 47 mg/dL (7-18) H Creatinine 1.0 MG/DL (0.55-1.30) Estimat Glomerular Filtration Rate mL/min (>60) Calcium Level 8.6 MG/DL (8.5-10.1) Current Medications Medications (Trade) Dose Ordered Sig/Ninfa Route PRN Reason Start Time Stop Time Status Last Admin Dose Admin Acetaminophen (Tylenol) 650 mg Q4H PRN ORAL Mild Pain (Pain Scale 1-3) 09/26/17 15:00 10/26/17 14:59 Aspirin (Ecotrin) 81 mg DAILY ORAL 09/26/17 16:00 10/26/17 15:59 09/28/17 09:00 Atorvastatin Calcium (Lipitor) 20 mg BEDTIME ORAL 09/26/17 21:00 10/26/17 20:59 09/27/17 21:21 Azithromycin 500 mg/Dextrose 275 ml @ 275 mls/hr Q24H IV 09/27/17 14:00 10/04/17 13:59 09/27/17 14:41 Ceftriaxone Sodium 1 gm/ Dextrose 110 ml @ 220 mls/hr Q24H IV 09/27/17 12:00 10/04/17 11:59 09/27/17 11:25 Dextrose (Dextrose 50%) 25 ml STAT PRN IV Hypoglycemia 09/26/17 15:15 10/26/17 15:14 Dextrose (Dextrose 50%) 50 ml STAT PRN IV Hypoglycemia 09/26/17 15:15 10/26/17 15:14 Heparin Sodium (Porcine) (Heparin 5000 units/ml) 5,000 units EVERY 12 HOURS SUBQ 09/26/17 15:00 10/26/17 14:59 09/28/17 09:05 Insulin Aspart (NovoLOG) BEFORE MEALS AND HS SUBQ 09/26/17 16:30 10/26/17 16:29 09/28/17 05:55 Pantoprazole (Protonix) 40 mg DAILY ORAL 09/26/17 16:00 10/26/17 15:59 09/28/17 09:00 Vancomycin HCl (Vanco rx to dose) 1 ea DAILY PRN MISC Per rx protocol 09/27/17 14:45 10/27/17 14:44 Vancomycin/Sodium Chloride 250 ml @ 166.667 mls/hr Q24H IVPB 09/29/17 03:00 10/04/17 02:59 TALON COBOS Sep 28, 2017 11:09
[2017-09-28] MEDS: cefTRIAXone 1 GM in D5W 110 ML IV SCH (12:00)
[2017-09-28 12:05] VITALS: BP 86/52
--- NOTE | 2017-09-28 12:13 | General Progress Note ---
Assessment/Plan Problem List: (1) Altered mental status ICD Codes: R41.82 - Altered mental status, unspecified SNOMED: 645426450 (2) Pneumonia ICD Codes: J18.9 - Pneumonia, unspecified organism SNOMED: 972994882 (3) Diabetes mellitus ICD Codes: E11.9 - Type 2 diabetes mellitus without complications SNOMED: 21269569 (4) Alzheimer's dementia ICD Codes: G30.9 - Alzheimer's disease, unspecified SNOMED: 73732563 (5) Hypernatremia ICD Codes: E87.0 - Hyperosmolality and hypernatremia SNOMED: 28918255 Status Narrative hypernatremia resolved Assessment/Plan Dc IVF abxs start puree diet Discussed with daughter in-law Neuro consult discussed with speech Subjective Allergies: Coded Allergies: Potato (Unverified Allergy, Unknown, 12/26/16) Subjective more alert Objective Last 24 Hour Vital Signs Date Time Temp Pulse Resp B/P (MAP) Pulse Ox O2 Delivery O2 Flow Rate FiO2 09/28/17 12:05 98.9 56 20 86/52 99 Room Air 98.9 09/28/17 08:00 68 09/28/17 08:00 98.1 70 18 96/73 98 Room Air 98.1 09/28/17 04:12 98.1 64 20 94/48 99 Room Air 98.1 09/28/17 03:41 62 09/28/17 00:00 97.3 71 20 114/70 99 Room Air 97.3 09/27/17 23:52 72 09/27/17 20:00 97.2 69 20 98/61 99 Room Air 97.2 09/27/17 19:34 68 09/27/17 16:00 79 09/27/17 16:00 97.5 82 20 105/64 96 Room Air 97.5 Intake and Output 09/27/17 09/28/17 19:00 07:00 Intake Total 1528.708 ml 774 ml Balance 1528.708 ml 774 ml Intake Oral 185 ml IV Total 1343.708 ml 774 ml # Voids 3 Laboratory Tests 09/27/17 21:50: Glucose Level 592#*H 09/28/17 05:30: Glucose Level 353#H, Sodium Level 144, Potassium Level 3.9, Chloride Level 110H , Carbon Dioxide Level 21, Anion Gap 13, Blood Urea Nitrogen 47H, Creatinine 1.0 , Estimat Glomerular Filtration Rate , Calcium Level 8.6 Height (Feet): 5 Height (Inches): 0.00 Weight (Pounds): 87 Cardiovascular: normal rate Respiratory/Chest: lungs clear Edema: no edema noted Generalized Len Sanchez MD Sep 28, 2017 12:13
[2017-09-28] MEDS: Azithromycin 500 MG in D5W 275 ML IV SCH (14:00)
--- NOTE | 2017-09-28 15:05 | General Surgery Progress Note ---
General Surgery-Progress Note Subjective Additional Comments no acute events. doing well. comfortable. Objective Last 24 Hour Vital Signs Date Time Temp Pulse Resp B/P (MAP) Pulse Ox O2 Delivery O2 Flow Rate FiO2 09/28/17 12:05 98.9 56 20 86/52 99 Room Air 98.9 09/28/17 08:00 68 09/28/17 08:00 98.1 70 18 96/73 98 Room Air 98.1 09/28/17 04:12 98.1 64 20 94/48 99 Room Air 98.1 09/28/17 03:41 62 09/28/17 00:00 97.3 71 20 114/70 99 Room Air 97.3 09/27/17 23:52 72 09/27/17 20:00 97.2 69 20 98/61 99 Room Air 97.2 09/27/17 19:34 68 09/27/17 16:00 79 09/27/17 16:00 97.5 82 20 105/64 96 Room Air 97.5 I&O Intake and Output 09/27/17 09/28/17 19:00 07:00 Intake Total 1528.708 ml 774 ml Balance 1528.708 ml 774 ml Intake Oral 185 ml IV Total 1343.708 ml 774 ml # Voids 3 Cardiovascular: RSR Respiratory: clear Abdomen: soft, flat, non-tender, present bowel sounds Extremities: other - bilateral hip and sacral wounds Laboratory Tests Test 09/27/17 21:50 09/28/17 05:30 Glucose Level 592 MG/DL (74-106) #*H 353 MG/DL (74-106) #H Sodium Level 144 MMOL/L (136-145) Potassium Level 3.9 MMOL/L (3.5-5.1) Chloride Level 110 MMOL/L (98-107) H Carbon Dioxide Level 21 MMOL/L (21-32) Anion Gap 13 mmol/L (5-15) Blood Urea Nitrogen 47 mg/dL (7-18) H Creatinine 1.0 MG/DL (0.55-1.30) Estimat Glomerular Filtration Rate mL/min (>60) Calcium Level 8.6 MG/DL (8.5-10.1) Plan Problems: (1) Sacral decubitus ulcer, stage III Assessment & Plan: Stage 3 sacral decubitus ulcer - see wound care photos. two small ulcers. midline deep stage 3 but fortunately currently small. no signs of active infection. no odor. no drainage. -keep pressure off wound. turn q2h. foam protective dressing. skin protectant cream prn Bilateral trochanter ulcers with skin breakdown. small area of eschar. no signs of active infection. no drainage. no odor. --keep pressure off wound. turn q2h. foam protective dressing. skin protectant cream prn wounds present upon admission. need to ensure healing air soft mattress care as above trend labs. thank you for this consultation. (2) Abnormal liver function test Assessment & Plan: ultrasound abdomen to evaluate liver/gb. diet as tolerated no surgical intervention planned at this time Harsh Davis Sep 28, 2017 15:05
[2017-09-28 16:00] VITALS: BP 95/62
[2017-09-28 20:00] VITALS: BP 104/71
[2017-09-28] MEDS: Atorvastatin 20mg tab ORAL SCH (20:44)
[2017-09-29] VITALS: BP 114/64
[2017-09-29] MEDS ORDERED: Vancomycin 750mg/NS 250ml IVPB SCH (03:00)
[2017-09-29 04:00] VITALS: BP 100/62
[2017-09-29] MEDS: NovoLOG Insulin Flexpen SUBQ SCH ×4 (06:24→20:52)
[2017-09-29 07:43] LABS: ANION GAP 14 mmol/L (5-15); BLOOD UREA NITROGEN 29 mg/dL (7-18); CALCIUM 8.1 MG/DL (8.5-10.1); CARBON DIOXIDE 19 MMOL/L (21-32); CHLORIDE 110 MMOL/L (98-107); CREATININE 0.7 MG/DL (0.55-1.30); POTASSIUM 4.3 MMOL/L (3.5-5.1); SODIUM 143 MMOL/L (136-145)
[2017-09-29 08:00] VITALS: BP 87/58
[2017-09-29] MEDS: Aspirin EC 81mg tab ORAL SCH (09:27)
[2017-09-29] MEDS: Heparin 5000 units/ml inj SUBQ SCH ×2 (09:29→20:48)
--- NOTE | 2017-09-29 10:38 | Infectious Diseases Prog Note ---
Assessment/Plan Assessment/Plan A: 1. pneumonia 2. + blood cultures with Coagulase negative staph, contamination 3. diabetes mellitus 4. hypertension 5. dementia 6. Hypotension 7. DNR status P 1. continue Levaquin, discontinue Zyvox 2. will follow up cultures Subjective ROS Limited/Unobtainable: Yes Constitutional: Reports: anorexia Neurologic: Reports: confusion Allergies: Coded Allergies: Potato (Unverified Allergy, Unknown, 12/26/16) Objective Vital Signs Last 24 Hour Vital Signs Date Time Temp Pulse Resp B/P (MAP) Pulse Ox O2 Delivery O2 Flow Rate FiO2 09/29/17 08:00 96.6 78 18 87/58 99 Room Air 96.6 09/29/17 04:00 97.7 63 19 100/62 98 Room Air 97.7 09/29/17 03:36 63 09/29/17 00:00 96.6 67 19 114/64 99 Room Air 96.6 09/28/17 23:44 60 09/28/17 20:00 97.7 69 19 104/71 94 Room Air 97.7 09/28/17 19:06 65 09/28/17 16:00 56 09/28/17 16:00 97.9 59 18 95/62 99 Room Air 97.9 09/28/17 12:05 98.9 56 20 86/52 99 Room Air 98.9 09/28/17 12:00 57 Height (Feet): 5 Height (Inches): 0.00 Weight (Pounds): 87 General Appearance: no acute distress HEENT: mucous membranes moist, other - right eye internal rotation Cardiovascular: normal rate Abdomen: soft, non tender Extremities: no edema Skin: ulcers Neurologic/Psychiatric: alert, responsive, disoriented Microbiology Date/Time Source Procedure Growth Status 09/26/17 11:30 Blood Blood Culture - Final Staph Hominis Ssp Hominis Complete 09/26/17 11:20 Blood Blood Culture - Final Staph Hominis Ssp Hominis Complete 09/27/17 03:50 Sacral Wound Gram Stain - Final Resulted 09/27/17 03:50 Sacral Wound Wound Culture Pending Resulted 09/27/17 03:50 Hip Left Gram Stain - Final Resulted 09/27/17 03:50 Hip Left Wound Culture Pending Resulted Laboratory Tests Test 09/29/17 06:45 Sodium Level 143 MMOL/L (136-145) Potassium Level 4.3 MMOL/L (3.5-5.1) Chloride Level 110 MMOL/L (98-107) H Carbon Dioxide Level 19 MMOL/L (21-32) L Anion Gap 14 mmol/L (5-15) Blood Urea Nitrogen 29 mg/dL (7-18) H Creatinine 0.7 MG/DL (0.55-1.30) Estimat Glomerular Filtration Rate mL/min (>60) Glucose Level 152 MG/DL (74-106) #H Calcium Level 8.1 MG/DL (8.5-10.1) L Current Medications Medications (Trade) Dose Ordered Sig/Ninfa Route PRN Reason Start Time Stop Time Status Last Admin Dose Admin Acetaminophen (Tylenol) 650 mg Q4H PRN ORAL Mild Pain (Pain Scale 1-3) 09/26/17 15:00 10/26/17 14:59 Aspirin (Ecotrin) 81 mg DAILY ORAL 09/26/17 16:00 10/26/17 15:59 09/29/17 09:27 Atorvastatin Calcium (Lipitor) 20 mg BEDTIME ORAL 09/26/17 21:00 10/26/17 20:59 09/28/17 20:44 Dextrose (Dextrose 50%) 25 ml STAT PRN IV Hypoglycemia 09/26/17 15:15 10/26/17 15:14 Dextrose (Dextrose 50%) 50 ml STAT PRN IV Hypoglycemia 09/26/17 15:15 10/26/17 15:14 Heparin Sodium (Porcine) (Heparin 5000 units/ml) 5,000 units EVERY 12 HOURS SUBQ 09/26/17 15:00 10/26/17 14:59 09/29/17 09:29 Insulin Aspart (NovoLOG) BEFORE MEALS AND HS SUBQ 09/26/17 16:30 10/26/17 16:29 09/28/17 16:38 Levofloxacin (Levaquin) 750 mg Q48H ORAL 09/28/17 18:00 10/05/17 17:59 09/28/17 18:12 Linezolid (Zyvox) 600 mg EVERY 12 HOURS ORAL 09/28/17 18:00 10/03/17 17:59 09/29/17 09:28 Pantoprazole (Protonix) 40 mg DAILY ORAL 09/26/17 16:00 10/26/17 15:59 09/29/17 09:28 Sodium Chloride 1,000 ml @ 75 mls/hr [id number] IV 09/29/17 10:15 10/29/17 10:14 09/29/17 10:23 Jasiel Sanchez MD Sep 29, 2017 10:37
[2017-09-29 12:00] VITALS: BP 88/55
--- NOTE | 2017-09-29 12:28 | General Progress Note ---
Assessment/Plan Problem List: (1) Altered mental status ICD Codes: R41.82 - Altered mental status, unspecified SNOMED: 370388165 (2) Pneumonia ICD Codes: J18.9 - Pneumonia, unspecified organism SNOMED: 401467757 (3) Diabetes mellitus ICD Codes: E11.9 - Type 2 diabetes mellitus without complications SNOMED: 49984131 (4) Alzheimer's dementia ICD Codes: G30.9 - Alzheimer's disease, unspecified SNOMED: 17676134 (5) Hypernatremia ICD Codes: E87.0 - Hyperosmolality and hypernatremia SNOMED: 66496352 Assessment/Plan IV NS for low BP abxs puree diet Discussed with daughter in-law discussed with speech Subjective Allergies: Coded Allergies: Potato (Unverified Allergy, Unknown, 12/26/16) Subjective In NAD Objective Last 24 Hour Vital Signs Date Time Temp Pulse Resp B/P (MAP) Pulse Ox O2 Delivery O2 Flow Rate FiO2 09/29/17 08:00 96.6 78 18 87/58 99 Room Air 96.6 09/29/17 04:00 97.7 63 19 100/62 98 Room Air 97.7 09/29/17 03:36 63 09/29/17 00:00 96.6 67 19 114/64 99 Room Air 96.6 09/28/17 23:44 60 09/28/17 20:00 97.7 69 19 104/71 94 Room Air 97.7 09/28/17 19:06 65 09/28/17 16:00 56 09/28/17 16:00 97.9 59 18 95/62 99 Room Air 97.9 Intake and Output 09/28/17 09/29/17 19:00 07:00 Intake Total 450 ml Output Total 750 ml 500 ml Balance -300 ml -500 ml Other 450 ml Output Urine Total 750 ml 500 ml Laboratory Tests 09/29/17 06:45: Sodium Level 143, Potassium Level 4.3, Chloride Level 110H, Carbon Dioxide Level 19L, Anion Gap 14, Blood Urea Nitrogen 29H, Creatinine 0.7, Estimat Glomerular Filtration Rate , Glucose Level 152#H, Calcium Level 8.1L Height (Feet): 5 Height (Inches): 0.00 Weight (Pounds): 87 Cardiovascular: normal rate Respiratory/Chest: lungs clear Edema: no edema noted Generalized Rahban,Len MD Sep 29, 2017 12:28
--- NOTE | 2017-09-29 14:17 | Cardiology Report ---
APPROVED REPORT EKG Measurement Heart [id number] 120P40 [id number] Sinus tachycardia Left axis deviation Low voltage QRS Inferior infarct, age undetermined Cannot rule out Anterior infarct, age undetermined Abnormal ECG
[2017-09-29] MEDS ORDERED: 1/2 NS 1000ml IV ONE (15:51)
[2017-09-29 16:00] VITALS: BP 97/61
[2017-09-29 20:00] VITALS: BP 107/66
[2017-09-29] MEDS: Atorvastatin 20mg tab ORAL SCH (20:46)
--- NOTE | 2017-09-29 21:34 | Neurology Progress Note ---
Interim History Interim History Interim History Ms. Maureen To looks better. She looks brighter today. She continues to be cognitively impoverished. She continues to be generally weak. Review of Systems Neuro Review of Systems Benign. Objective Physical Exam Last Vital Signs Date Time Temp Pulse Resp B/P (MAP) Pulse Ox O2 Delivery O2 Flow Rate FiO2 09/29/17 16:00 96.6 68 18 97/61 99 Room Air 96.6 Laboratory Tests Test 09/29/17 06:45 Sodium Level 143 MMOL/L (136-145) Potassium Level 4.3 MMOL/L (3.5-5.1) Chloride Level 110 MMOL/L (98-107) H Carbon Dioxide Level 19 MMOL/L (21-32) L Anion Gap 14 mmol/L (5-15) Blood Urea Nitrogen 29 mg/dL (7-18) H Creatinine 0.7 MG/DL (0.55-1.30) Estimat Glomerular Filtration Rate mL/min (>60) Glucose Level 152 MG/DL (74-106) #H Calcium Level 8.1 MG/DL (8.5-10.1) L Neurologic Exam Objective PHYSICAL EXAMINATION: GENERAL: She is a well-developed, well-nourished, lady lying in bed, in no acute distress. HEAD: Normocephalic and atraumatic. NECK: No neck rigidity was observed. EENT EXAMINATION: Benign except for strabismus. NEUROLOGICAL EXAMINATION: MENTAL STATUS EXAMINATION: She was awake and looked alert. She was unable to communicate in Vietnamese. She was unable to follow simple commands. SPEECH: She had a moderate dysarthria. LANGUAGE: She was unable to comprehend and express herself even in Vietnamese. CRANIAL NERVE EXAMINATION: II: She did blink to threat. She was unable to cooperate for confrontation testing. III, IV and : External ocular movements were restricted in both eyes and she had bilateral shifting inotropia. V: She had normal facial sensations and the temporales, masseters and pterygoids function normally. VII: She had right seventh central facial paresis. VIII: She seemed to be able to hear sounds and had nonystagmus. IX and X: The gag reflex was present. XI: The sternocleidomastoids and trapezii did function. XII: The tongue was in the midline without any fasciculations or atrophy. MOTOR SYSTEM: The tone was normal in all 4 extremities. Examination of muscle mass revealed no focal wasting. Examination of power was impossible to perform because of her inability to cooperate. 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 SENSORY EXAMINATION: She responded appropriately to deep pain. Other sensory modalities could not be tested. REFLEXES: 0 at the biceps, triceps, brachioradialis, knees, and ankles. Plantar responses were flexor bilaterally. COORDINATION, STANCE & GAIT: Could not be tested. Impression/Recommendations Diagnostic Impression 1. Ms. Taylor To is an 82-year-old, right handed, lady, who does have a past history of hypertension, diabetes mellitus, coronary artery disease, cerebrovascular disease with prior strokes and dementia, who was hospitalized on 09/26/17 for an alteration in mental state associated with fevers and elevated blood sugars. 2. She looks better. She looks brighter today. She continues to be cognitively impoverished. She continues to be generally weak. 3. On neurological examination, at this time, she does demonstrate generalized cerebral dysfunction of a moderately severe degree. 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 In addition, she seems to be aphasic and dysarthric. 4. Laboratory data have revealed elevated blood sugars as high as in the 500s a low albumin and abnormal LFTs. 5. The patient's history and neurological examination are most compatible with an acute encephalopathic process related to blood sugars out of control, superimposed on old structural brain disease due to cerebrovascular disease, and a primary degenerative dementia. 6. Her encephalopathy is improving. Recommendations 1. Continue present management. 2. Better glycemic control. 3. Treatment of infectious processes as per Dr Coronado. CODI TROTTER M.D., M.S.P.CODI ESPINAL Sep 29, 2017 21:34
[2017-09-30] VITALS: BP 97/59
[2017-09-30 04:00] VITALS: BP 107/64
[2017-09-30] MEDS: NovoLOG Insulin Flexpen SUBQ SCH ×4 (06:36→21:32)
[2017-09-30 08:00] VITALS: BP 114/75
[2017-09-30] MEDS: Aspirin EC 81mg tab ORAL SCH (09:12)
[2017-09-30] MEDS: Heparin 5000 units/ml inj SUBQ SCH ×2 (09:14→21:32)
--- NOTE | 2017-09-30 09:30 | Diagnostic Imaging Report ---
Indication: Abnormal renal function tests, abnormal liver function tests Technique: Rich-scale and duplex images of the upper abdomen were obtained Comparison: Abdomen pelvis CT dated 02/17/2017, renal ultrasound dated 11/19/2016 Findings: Gallbladder demonstrates echogenic mural foci which are nonmobile. There is equivocal mild gallbladder wall thickening, measuring just over 3 mm in diameter. No pericholecystic fluid. Sonographic Fairchild's sign is negative. Common bile duct measures 3 mm in diameter. No intrahepatic biliary ductal dilatation. Liver demonstrates heterogeneous echogenicity. There is a hypoechoic mass abutting the right lobe and medial left lobes. This measures 8 x 8.6 cm, previously reported as 6 or [address] Other smaller similar-appearing masses are seen immediately adjacent, measuring approximately 2.1 and 2.8 cm. Portal vein and hepatic veins are patent. Pancreas is incompletely visualized due to overlying bowel gas, visualized portions are unremarkable. There is questionably a recanalized small paraumbilical vein. Spleen is unremarkable. Left kidney measures 10.7 cm in length. Right kidney is within the pelvis, measures 7.4 cm in length. It demonstrates a 13 mm cyst in the lower pole. Both kidneys demonstrate normal echogenicity. There is no hydronephrosis. No focal abnormality . Non-aneurysmal abdominal aorta . Impression: Right lobe liver mass and at least 2 adjacent smaller masses, also described on prior February [address] scan. 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 Liver abscesses are also a possible etiology. Recommend further evaluation with contrast CT or MRI Limited exam, as described Questionable small recannulized periumbilical vein, if real could indicate portal hypertension Ectopic right kidney, located within the pelvis. This demonstrates a lower pole cyst.
[2017-09-30 12:00] VITALS: BP 130/61
--- NOTE | 2017-09-30 12:52 | Infectious Diseases Prog Note ---
Assessment/Plan Assessment/Plan A: 1. pneumonia Mycoplasma & Legionella antibodies are positive 2. + blood cultures with Coagulase negative staph, contamination 3. diabetes mellitus with hyperglycemia 4. hypertension 5. dementia 6. Hypotension 7. DNR status P 1. continue Levaquin, 2. will follow up cultures & Legionella antigen Subjective ROS Limited/Unobtainable: Yes Allergies: Coded Allergies: Potato (Unverified Allergy, Unknown, 12/26/16) Objective Vital Signs Last 24 Hour Vital Signs Date Time Temp Pulse Resp B/P (MAP) Pulse Ox O2 Delivery O2 Flow Rate FiO2 09/30/17 08:00 97.0 57 20 114/75 96 Room Air 97.0 09/30/17 08:00 56 09/30/17 04:00 97.3 62 20 107/64 99 Room Air 97.3 09/30/17 03:49 57 09/30/17 00:00 62 09/30/17 00:00 97.5 66 20 97/59 97 Room Air 97.5 09/29/17 20:00 98.2 58 21 107/66 97 Room Air 98.2 09/29/17 19:57 67 09/29/17 16:00 96.6 68 18 97/61 99 Room Air 96.6 09/29/17 16:00 65 Height (Feet): 5 Height (Inches): 0.00 Weight (Pounds): 98 General Appearance: no acute distress HEENT: mucous membranes moist Respiratory/Chest: lungs clear Cardiovascular: normal rate Abdomen: soft, non tender Extremities: no edema Neurologic/Psychiatric: other - sleeping Current Medications Medications (Trade) Dose Ordered Sig/Ninfa Route PRN Reason Start Time Stop Time Status Last Admin Dose Admin Acetaminophen (Tylenol) 650 mg Q4H PRN ORAL Mild Pain (Pain Scale 1-3) 09/26/17 15:00 10/26/17 14:59 Aspirin (Ecotrin) 81 mg DAILY ORAL 09/26/17 16:00 10/26/17 15:59 09/30/17 09:12 Atorvastatin Calcium (Lipitor) 20 mg BEDTIME ORAL 09/26/17 21:00 10/26/17 20:59 09/29/17 20:46 Dextrose (Dextrose 50%) 25 ml STAT PRN IV Hypoglycemia 09/26/17 15:15 10/26/17 15:14 Dextrose (Dextrose 50%) 50 ml STAT PRN IV Hypoglycemia 09/26/17 15:15 10/26/17 15:14 Heparin Sodium (Porcine) (Heparin 5000 units/ml) 5,000 units EVERY 12 HOURS SUBQ 09/26/17 15:00 10/26/17 14:59 09/30/17 09:14 Insulin Aspart (NovoLOG) BEFORE MEALS AND HS SUBQ 09/26/17 16:30 10/26/17 16:29 09/30/17 12:18 Levofloxacin (Levaquin) 750 mg Q48H ORAL 09/28/17 18:00 10/05/17 17:59 09/28/17 18:12 Pantoprazole (Protonix) 40 mg DAILY ORAL 09/26/17 16:00 10/26/17 15:59 09/30/17 09:11 Sodium Chloride 1,000 ml @ 50 mls/hr Q20H IV 09/29/17 13:00 10/29/17 12:59 09/30/17 09:16 Jasiel Sanchez MD Sep 30, 2017 12:52
--- NOTE | 2017-09-30 15:08 | General Progress Note ---
Assessment/Plan Problem List: (1) Altered mental status ICD Codes: R41.82 - Altered mental status, unspecified SNOMED: 882235176 (2) Pneumonia ICD Codes: J18.9 - Pneumonia, unspecified organism SNOMED: 701764891 (3) Diabetes mellitus ICD Codes: E11.9 - Type 2 diabetes mellitus without complications SNOMED: 14527703 (4) Alzheimer's dementia ICD Codes: G30.9 - Alzheimer's disease, unspecified SNOMED: 91933466 (5) Hypernatremia ICD Codes: E87.0 - Hyperosmolality and hypernatremia SNOMED: 11236404 Assessment/Plan Dc IVF abxs puree diet Discussed with daughter in-law Subjective Allergies: Coded Allergies: Potato (Unverified Allergy, Unknown, 12/26/16) Subjective In NAD Objective Last 24 Hour Vital Signs Date Time Temp Pulse Resp B/P (MAP) Pulse Ox O2 Delivery O2 Flow Rate FiO2 09/30/17 12:00 97.0 57 20 130/61 97 Room Air 97.0 09/30/17 12:00 57 09/30/17 08:00 97.0 57 20 114/75 96 Room Air 97.0 09/30/17 08:00 56 09/30/17 04:00 97.3 62 20 107/64 99 Room Air 97.3 09/30/17 03:49 57 09/30/17 00:00 62 09/30/17 00:00 97.5 66 20 97/59 97 Room Air 97.5 09/29/17 20:00 98.2 58 21 107/66 97 Room Air 98.2 09/29/17 19:57 67 09/29/17 16:00 96.6 68 18 97/61 99 Room Air 96.6 09/29/17 16:00 65 Intake and Output 09/29/17 09/30/17 19:00 07:00 Intake Total 530 ml 500 ml Output Total 350 ml Balance 180 ml 500 ml Intake Oral 200 ml IV Total 330 ml 500 ml Output Urine Total 350 ml # Bowel Movements 1 Height (Feet): 5 Height (Inches): 0.00 Weight (Pounds): 98 Cardiovascular: normal rate Respiratory/Chest: lungs clear Edema: no edema noted Generalized Len Sanchez MD Sep 30, 2017 15:08
[2017-09-30 16:00] VITALS: BP 102/63
[2017-09-30 20:00] VITALS: BP 118/65
--- NOTE | 2017-09-30 20:56 | Neurology Progress Note ---
Interim History Interim History Interim History Ms. Maureen To looks better. She looks brighter today. She makes eye contact. She continues to be cognitively impoverished. She continues to be generally weak. Review of Systems Neuro Review of Systems Unable to obtain. Objective Physical Exam Last Vital Signs Date Time Temp Pulse Resp B/P (MAP) Pulse Ox O2 Delivery O2 Flow Rate FiO2 09/30/17 16:00 97.0 80 20 102/63 95 Room Air 97.0 Laboratory Tests Test 09/30/17 15:40 Hepatitis B Surface Antibody Pending HIV (1&2) Antibody Rapid Negative (NEGATIVE) Neurologic Exam Objective PHYSICAL EXAMINATION: GENERAL: She is a well-developed, well-nourished, lady lying in bed, in no acute distress. HEAD: Normocephalic and atraumatic. NECK: No neck rigidity was observed. EENT EXAMINATION: Benign except for strabismus. NEUROLOGICAL EXAMINATION: MENTAL STATUS EXAMINATION: She was awake and looked alert. She was unable to communicate in Chinese. She was unable to follow simple commands. SPEECH: She had a moderate dysarthria. LANGUAGE: She was unable to comprehend and express herself even in Chinese. CRANIAL NERVE EXAMINATION: II: She did blink to threat. She was unable to cooperate for confrontation testing. III, IV and : External ocular movements were restricted in both eyes and she had bilateral shifting inotropia. V: She had normal facial sensations and the temporales, masseters and pterygoids function normally. VII: She had right seventh central facial paresis. VIII: She seemed to be able to hear sounds and had nonystagmus. IX and X: The gag reflex was present. XI: The sternocleidomastoids and trapezii did function. XII: The tongue was in the midline without any fasciculations or atrophy. MOTOR SYSTEM: The tone was normal in all 4 extremities. Examination of muscle mass revealed no focal wasting. Examination of power was impossible to perform because of her inability to cooperate. 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 SENSORY EXAMINATION: She responded appropriately to deep pain. Other sensory modalities could not be tested. REFLEXES: 0 at the biceps, triceps, brachioradialis, knees, and ankles. Plantar responses were flexor bilaterally. COORDINATION, STANCE & GAIT: Could not be tested. Impression/Recommendations Diagnostic Impression 1. Ms. Taylor To is an 82-year-old, right handed, lady, who does have a past history of hypertension, diabetes mellitus, coronary artery disease, cerebrovascular disease with prior strokes and dementia, who was hospitalized on 09/26/17 for an alteration in mental state associated with fevers and elevated blood sugars. 2. She looks better and brighter. She continues to be cognitively impoverished. She continues to be generally weak. 3. On neurological examination, at this time, she does demonstrate generalized cerebral dysfunction of a moderately severe degree. 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 In addition, she seems to be aphasic and dysarthric. 4. Laboratory data have revealed elevated blood sugars as high as in the 500s a low albumin and abnormal LFTs. 5. The patient's history and neurological examination are most compatible with an acute encephalopathic process related to blood sugars out of control, superimposed on old structural brain disease due to cerebrovascular disease, and a primary degenerative dementia. 6. Her encephalopathy is stabilizing. Recommendations 1. Continue present management. 2. Better glycemic control. 3. Treatment of infectious processes as per Dr Coronado. CODI TROTTER M.D., M.S.P.H. CODI TROTTER Sep 30, 2017 20:56
[2017-09-30] MEDS: Atorvastatin 20mg tab ORAL SCH (21:31)
[2017-10-01] VITALS: BP 123/71
[2017-10-01 04:00] VITALS: BP 94/56
[2017-10-01] MEDS: NovoLOG Insulin Flexpen SUBQ SCH ×4 (06:49→22:02)
[2017-10-01 08:00] VITALS: BP 115/56
[2017-10-01] MEDS: Aspirin EC 81mg tab ORAL SCH (09:35)
[2017-10-01] MEDS: Heparin 5000 units/ml inj SUBQ SCH ×2 (09:41→22:01)
--- NOTE | 2017-10-01 11:08 | Infectious Diseases Prog Note ---
Assessment/Plan Assessment/Plan A: 1. pneumonia Mycoplasma & Legionella antibodies are positive 2. + blood cultures with Coagulase negative staph, contamination 3. diabetes mellitus with hyperglycemia 4. hypertension 5. dementia 6. Hypotension 7. DNR status P 1. continue Levaquin, 2. will follow up cultures & Legionella antigen Subjective ROS Limited/Unobtainable: Yes Neurologic: Reports: confusion Allergies: Coded Allergies: Potato (Unverified Allergy, Unknown, 12/26/16) Objective Vital Signs Last 24 Hour Vital Signs Date Time Temp Pulse Resp B/P (MAP) Pulse Ox O2 Delivery O2 Flow Rate FiO2 10/01/17 04:00 97.0 63 21 94/56 99 Room Air 97.0 10/01/17 04:00 71 10/01/17 00:00 97.0 77 19 123/71 99 Room Air 97.0 09/30/17 23:51 65 09/30/17 20:00 97.5 97 20 118/65 100 Room Air 97.5 09/30/17 19:06 85 09/30/17 16:00 97.0 80 20 102/63 95 Room Air 97.0 09/30/17 16:00 79 09/30/17 12:00 97.0 57 20 130/61 97 Room Air 97.0 09/30/17 12:00 57 Height (Feet): 5 Height (Inches): 0.00 Weight (Pounds): 98 General Appearance: no acute distress HEENT: mucous membranes moist Respiratory/Chest: lungs clear Cardiovascular: normal rate Abdomen: soft, non tender Extremities: no edema Skin: ulcers Neurologic/Psychiatric: disoriented Laboratory Tests Test 09/30/17 15:40 Hepatitis B Surface Antibody <3.1 mIU/mL (Immunity>9.9) HIV (1&2) Antibody Rapid Negative (NEGATIVE) Current Medications Medications (Trade) Dose Ordered Sig/Ninfa Route PRN Reason Start Time Stop Time Status Last Admin Dose Admin Acetaminophen (Tylenol) 650 mg Q4H PRN ORAL Mild Pain (Pain Scale 1-3) 09/26/17 15:00 10/26/17 14:59 Aspirin (Ecotrin) 81 mg DAILY ORAL 09/26/17 16:00 10/26/17 15:59 10/01/17 09:35 Atorvastatin Calcium (Lipitor) 20 mg BEDTIME ORAL 09/26/17 21:00 10/26/17 20:59 09/30/17 21:31 Dextrose (Dextrose 50%) 25 ml STAT PRN IV Hypoglycemia 09/26/17 15:15 10/26/17 15:14 Dextrose (Dextrose 50%) 50 ml STAT PRN IV Hypoglycemia 09/26/17 15:15 10/26/17 15:14 Heparin Sodium (Porcine) (Heparin 5000 units/ml) 5,000 units EVERY 12 HOURS SUBQ 09/26/17 15:00 10/26/17 14:59 10/01/17 09:41 Insulin Aspart (NovoLOG) BEFORE MEALS AND HS SUBQ 09/26/17 16:30 10/26/17 16:29 10/01/17 06:49 Levofloxacin (Levaquin) 750 mg Q48H ORAL 09/28/17 18:00 10/05/17 17:59 09/30/17 18:34 Pantoprazole (Protonix) 40 mg DAILY ORAL 09/26/17 16:00 10/26/17 15:59 10/01/17 09:35 Jasiel Sanchez MD Oct 01, 2017 11:08
[2017-10-01 12:00] VITALS: BP 100/53
--- NOTE | 2017-10-01 13:16 | General Progress Note ---
Assessment/Plan Problem List: (1) Altered mental status ICD Codes: R41.82 - Altered mental status, unspecified SNOMED: 332647687 (2) Pneumonia ICD Codes: J18.9 - Pneumonia, unspecified organism SNOMED: 057015323 (3) Diabetes mellitus ICD Codes: E11.9 - Type 2 diabetes mellitus without complications SNOMED: 30263311 (4) Alzheimer's dementia ICD Codes: G30.9 - Alzheimer's disease, unspecified SNOMED: 52381167 (5) Hypernatremia ICD Codes: E87.0 - Hyperosmolality and hypernatremia SNOMED: 20437831 Assessment/Plan abxs puree diet Discussed with case management rn Subjective Allergies: Coded Allergies: Potato (Unverified Allergy, Unknown, 12/26/16) Subjective In NAD Objective Last 24 Hour Vital Signs Date Time Temp Pulse Resp B/P (MAP) Pulse Ox O2 Delivery O2 Flow Rate FiO2 10/01/17 12:00 96.6 56 18 100/53 98 Room Air 96.6 10/01/17 08:00 96.8 57 18 115/56 99 Room Air 96.8 10/01/17 04:00 97.0 63 21 94/56 99 Room Air 97.0 10/01/17 04:00 71 10/01/17 00:00 97.0 77 19 123/71 99 Room Air 97.0 09/30/17 23:51 65 09/30/17 20:00 97.5 97 20 118/65 100 Room Air 97.5 09/30/17 19:06 85 09/30/17 16:00 97.0 80 20 102/63 95 Room Air 97.0 09/30/17 16:00 79 Intake and Output 09/30/17 10/01/17 19:00 07:00 Intake Total 500 ml Output Total 600 ml Balance -100 ml Intake Oral 500 ml Output Urine Total 600 ml # Voids 2 Laboratory Tests 09/30/17 15:40: Hepatitis B Surface Antibody <3.1L, HIV (1&2) Antibody Rapid Negative Height (Feet): 5 Height (Inches): 0.00 Weight (Pounds): 98 Len Sanchez MD Oct 01, 2017 13:16
[2017-10-01 16:00] VITALS: BP 104/59
--- NOTE | 2017-10-01 19:55 | Neurology Progress Note ---
Interim History Interim History Interim History Ms. Maureen To looks better. She is brighter. She makes eye contact. She continues to be cognitively impoverished. She continues to be generally weak. There has been no significant improvement in her mental state. Review of Systems Neuro Review of Systems Unable to obtain. Objective Physical Exam Last Vital Signs Date Time Temp Pulse Resp B/P (MAP) Pulse Ox O2 Delivery O2 Flow Rate FiO2 10/01/17 16:00 96.4 56 21 104/59 98 Room Air 96.4 Neurologic Exam Objective PHYSICAL EXAMINATION: GENERAL: She is a well-developed, well-nourished, lady lying in bed, in no acute distress. HEAD: Normocephalic and atraumatic. NECK: No neck rigidity was observed. EENT EXAMINATION: Benign except for strabismus. NEUROLOGICAL EXAMINATION: MENTAL STATUS EXAMINATION: She was awake and looked alert. She was unable to communicate in Faroese. She was unable to follow simple commands. SPEECH: She had a moderate dysarthria. LANGUAGE: She was unable to comprehend and express herself even in Faroese. CRANIAL NERVE EXAMINATION: II: She did blink to threat. She was unable to cooperate for confrontation testing. III, IV and : External ocular movements were restricted in both eyes and she had bilateral shifting inotropia. V: She had normal facial sensations and the temporales, masseters and pterygoids function normally. VII: She had right seventh central facial paresis. VIII: She seemed to be able to hear sounds and had no nystagmus. IX and X: The gag reflex was present. XI: The sternocleidomastoids and trapezii did function. XII: The tongue was in the midline without any fasciculations or atrophy. MOTOR SYSTEM: The tone was normal in all 4 extremities. Examination of muscle mass revealed no focal wasting. Examination of power was impossible to perform because of her inability to cooperate. 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 SENSORY EXAMINATION: She responded appropriately to deep pain. Other sensory modalities could not be tested. REFLEXES: 0 at the biceps, triceps, brachioradialis, knees, and ankles. Plantar responses were flexor bilaterally. COORDINATION, STANCE & GAIT: Could not be tested. Impression/Recommendations Diagnostic Impression 1. Ms. Taylor To is an 82-year-old, right handed, lady, who does have a past history of hypertension, diabetes mellitus, coronary artery disease, cerebrovascular disease with prior strokes and dementia, who was hospitalized on 09/26/17 for an alteration in mental state associated with fevers and elevated blood sugars. 2. She looks better and brighter. She continues to be cognitively impoverished. She continues to be generally weak. 3. On neurological examination, at this time, she does demonstrate generalized cerebral dysfunction of a moderately severe degree. 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 In addition, she seems to be aphasic and dysarthric. 4. Laboratory data on admission revealed elevated blood sugars as high as in the 500s a low albumin and abnormal LFTs. 5. The patient's history and neurological examination are most compatible with an acute encephalopathic process related to blood sugars out of control, superimposed on old structural brain disease due to cerebrovascular disease, and a primary degenerative dementia. 6. Her encephalopathy is improving. Recommendations 1. Continue present management. 2. Better glycemic control. 3. Treatment of infectious processes as per Dr Coronado. CODI TROTTER M.D., M.S.P.Tricia. CODI TROTTER Oct 01, 2017 19:55
[2017-10-01 20:00] VITALS: BP 111/68
[2017-10-01] MEDS: Atorvastatin 20mg tab ORAL SCH (21:58)
[2017-10-02] VITALS: BP 90/52
[2017-10-02 04:00] VITALS: BP 97/59
[2017-10-02] MEDS: NovoLOG Insulin Flexpen SUBQ SCH ×4 (06:25→20:54)
[2017-10-02 08:15] VITALS: BP 117/74
[2017-10-02] MEDS: Aspirin EC 81mg tab ORAL SCH (09:09)
[2017-10-02] MEDS: Heparin 5000 units/ml inj SUBQ SCH ×2 (09:09→20:46)
[2017-10-02 11:29] VITALS: BP 107/55
--- NOTE | 2017-10-02 12:12 | Infectious Diseases Prog Note ---
Assessment/Plan Assessment/Plan A: 1. pneumonia Mycoplasma & Legionella antibodies are positive 2. + blood cultures with Coagulase negative staph, contamination 3. diabetes mellitus with hyperglycemia 4. hypertension 5. dementia 6. Hypotension 7. DNR status P 1. continue Levaquin, 2. will follow up cultures & Legionella antigen Subjective ROS Limited/Unobtainable: Yes Constitutional: Reports: no symptoms Musculoskeletal: Reports: pain, other - back pain Allergies: Coded Allergies: Potato (Unverified Allergy, Unknown, 12/26/16) Objective Vital Signs Last 24 Hour Vital Signs Date Time Temp Pulse Resp B/P (MAP) Pulse Ox O2 Delivery O2 Flow Rate FiO2 10/02/17 11:29 97.7 80 18 107/55 99 97.7 10/02/17 08:15 97.8 71 18 117/74 99 97.8 10/02/17 04:00 97.9 55 20 97/59 96 Room Air 97.9 10/02/17 00:00 97.4 54 19 90/52 96 Room Air 97.4 10/01/17 20:00 98.1 69 19 111/68 96 Room Air 98.1 10/01/17 16:00 96.4 56 21 104/59 98 Room Air 96.4 10/01/17 16:00 74 Height (Feet): 5 Height (Inches): 0.00 Weight (Pounds): 98 General Appearance: no acute distress HEENT: mucous membranes moist Respiratory/Chest: lungs clear Cardiovascular: normal rate Abdomen: soft, non tender Extremities: no edema Neurologic/Psychiatric: alert, responsive Laboratory Tests Test 10/01/17 19:45 Hepatitis A IgM Antibody Pending Hepatitis B Surface Antigen Pending Hepatitis B Core IgM Antibody Pending Hepatitis C Antibody Pending Current Medications Medications (Trade) Dose Ordered Sig/Ninfa Route PRN Reason Start Time Stop Time Status Last Admin Dose Admin Acetaminophen (Tylenol) 650 mg Q4H PRN ORAL Mild Pain (Pain Scale 1-3) 10/01/17 19:00 10/26/17 14:59 10/02/17 11:36 Aspirin (Ecotrin) 81 mg DAILY ORAL 10/02/17 09:00 10/26/17 15:59 10/02/17 09:09 Atorvastatin Calcium (Lipitor) 20 mg BEDTIME ORAL 10/01/17 21:00 10/26/17 20:59 10/01/17 21:58 Dextrose (Dextrose 50%) 25 ml STAT PRN IV Hypoglycemia 10/02/17 15:15 10/26/17 15:14 Dextrose (Dextrose 50%) 50 ml STAT PRN IV Hypoglycemia 10/02/17 15:15 10/26/17 15:14 Heparin Sodium (Porcine) (Heparin 5000 units/ml) 5,000 units EVERY 12 HOURS SUBQ 10/01/17 21:00 10/26/17 14:59 10/02/17 09:09 Insulin Aspart (NovoLOG) BEFORE MEALS AND HS SUBQ 10/01/17 21:00 10/26/17 16:29 10/02/17 11:40 Levofloxacin (Levaquin) 750 mg Q48H ORAL 10/02/17 18:00 10/05/17 17:59 Pantoprazole (Protonix) 40 mg DAILY ORAL 10/02/17 09:00 10/26/17 15:59 10/02/17 09:10 Jasiel Sanchez MD Oct 02, 2017 12:12
--- NOTE | 2017-10-02 12:55 | General Progress Note ---
Assessment/Plan Problem List: (1) Altered mental status ICD Codes: R41.82 - Altered mental status, unspecified SNOMED: 659732679 (2) Pneumonia ICD Codes: J18.9 - Pneumonia, unspecified organism SNOMED: 364652897 (3) Diabetes mellitus ICD Codes: E11.9 - Type 2 diabetes mellitus without complications SNOMED: 30119188 (4) Alzheimer's dementia ICD Codes: G30.9 - Alzheimer's disease, unspecified SNOMED: 87273741 (5) Hypernatremia ICD Codes: E87.0 - Hyperosmolality and hypernatremia SNOMED: 07502316 Assessment/Plan cont as is Dc today Subjective Allergies: Coded Allergies: Potato (Unverified Allergy, Unknown, 12/26/16) Subjective In NAD Objective Last 24 Hour Vital Signs Date Time Temp Pulse Resp B/P (MAP) Pulse Ox O2 Delivery O2 Flow Rate FiO2 10/02/17 11:29 97.7 80 18 107/55 99 97.7 10/02/17 08:15 97.8 71 18 117/74 99 97.8 10/02/17 04:00 97.9 55 20 97/59 96 Room Air 97.9 10/02/17 00:00 97.4 54 19 90/52 96 Room Air 97.4 10/01/17 20:00 98.1 69 19 111/68 96 Room Air 98.1 10/01/17 16:00 96.4 56 21 104/59 98 Room Air 96.4 10/01/17 16:00 74 Intake and Output 10/01/17 10/02/17 19:00 07:00 Intake Total 590 ml 240 ml Output Total 600 ml Balance -10 ml 240 ml Intake Oral 590 ml 240 ml Output Urine Total 600 ml # Voids 2 Laboratory Tests 10/01/17 19:45: Hepatitis A IgM Antibody [Pending], Hepatitis B Surface Antigen [Pending], Hepatitis B Core IgM Antibody [Pending], Hepatitis C Antibody [Pending] Height (Feet): 5 Height (Inches): 0.00 Weight (Pounds): 98 Cardiovascular: normal rate Respiratory/Chest: lungs clear Len Sanchez MD Oct 02, 2017 12:55
--- NOTE | 2017-10-02 13:34 | Neurology Progress Note ---
Interim History Interim History Interim History Ms. Maureen To looks better. She is brighter. She makes eye contact. She gives me a social smile when I ask her how she feels in Polish. She continues to be cognitively impoverished. She continues to be generally weak. There has been no significant improvement in her mental state. Review of Systems Neuro Review of Systems Unable to obtain. Objective Physical Exam Last Vital Signs Date Time Temp Pulse Resp B/P (MAP) Pulse Ox O2 Delivery O2 Flow Rate FiO2 10/02/17 11:29 97.7 80 18 107/55 99 97.7 10/02/17 04:00 Room Air Laboratory Tests Test 10/01/17 19:45 Hepatitis A IgM Antibody Pending Hepatitis B Surface Antigen Pending Hepatitis B Core IgM Antibody Pending Hepatitis C Antibody Pending Neurologic Exam Objective PHYSICAL EXAMINATION: GENERAL: She is a well-developed, well-nourished, lady lying in bed, in no acute distress. HEAD: Normocephalic and atraumatic. NECK: No neck rigidity was observed. EENT EXAMINATION: Benign except for strabismus. NEUROLOGICAL EXAMINATION: MENTAL STATUS EXAMINATION: She was awake and looked alert. She was unable to communicate in Polish even with her family. She was unable to follow simple commands. SPEECH: She had a moderate dysarthria. LANGUAGE: She was unable to comprehend and express herself even in Polish. CRANIAL NERVE EXAMINATION: II: She did blink to threat. She was unable to cooperate for confrontation testing. III, IV and : External ocular movements were restricted in both eyes and she had bilateral shifting inotropia. V: She had normal facial sensations and the temporales, masseters and pterygoids function normally. VII: She had right seventh central facial paresis. VIII: She seemed to be able to hear sounds and had no nystagmus. IX and X: The gag reflex was present. XI: The sternocleidomastoids and trapezii did function. XII: The tongue was in the midline without any fasciculations or atrophy. MOTOR SYSTEM: The tone was normal in all 4 extremities. Examination of muscle mass revealed no focal wasting. Examination of power was impossible to perform because of her inability to cooperate. 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 SENSORY EXAMINATION: She responded appropriately to deep pain. Other sensory modalities could not be tested. REFLEXES: 0 at the biceps, triceps, brachioradialis, knees, and ankles. Plantar responses were flexor bilaterally. COORDINATION, STANCE & GAIT: Could not be tested. Impression/Recommendations Diagnostic Impression 1. Ms. Taylor To is an 82-year-old, right handed, lady, who does have a past history of hypertension, diabetes mellitus, coronary artery disease, cerebrovascular disease with prior strokes and dementia, who was hospitalized on 09/26/17 for an alteration in mental state associated with fevers and elevated blood sugars. 2. She looks better and brighter. She continues to be cognitively impoverished. She continues to be generally weak. 3. On neurological examination, at this time, she does demonstrate generalized cerebral dysfunction of a moderately severe degree. 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 In addition, she seems to be aphasic and dysarthric. 4. Laboratory data on admission revealed elevated blood sugars as high as in the 500s a low albumin and abnormal LFTs. 5. The patient's history and neurological examination are most compatible with an acute encephalopathic process related to blood sugars out of control, superimposed on old structural brain disease due to cerebrovascular disease, and a primary degenerative dementia. 6. Her encephalopathy is improving however her underlying dementia is severe. Recommendations 1. Continue present management. 2. Better glycemic control. 3. Treatment of infectious processes as per Dr Coronado. CODI TROTTER M.D., M.S.P.H. CODI TROTTER Oct 02, 2017 13:34
[2017-10-02 15:59] VITALS: BP 95/65
[2017-10-02 20:00] VITALS: BP 116/65
[2017-10-02] MEDS: Atorvastatin 20mg tab ORAL SCH (20:45)
[2017-10-03] VITALS (7 sets, daily range): BP systolic 89–136; BP diastolic 50–89
[2017-10-03] MEDS: NovoLOG Insulin Flexpen SUBQ SCH ×4 (06:10→23:04)
[2017-10-03] MEDS: Aspirin EC 81mg tab ORAL SCH (10:54)
[2017-10-03] MEDS: Heparin 5000 units/ml inj SUBQ SCH ×2 (10:58→23:05)
--- NOTE | 2017-10-03 13:45 | General Progress Note ---
Assessment/Plan Problem List: (1) Altered mental status ICD Codes: R41.82 - Altered mental status, unspecified SNOMED: 944714296 (2) Pneumonia ICD Codes: J18.9 - Pneumonia, unspecified organism SNOMED: 447492147 (3) Diabetes mellitus ICD Codes: E11.9 - Type 2 diabetes mellitus without complications SNOMED: 49169315 (4) Alzheimer's dementia ICD Codes: G30.9 - Alzheimer's disease, unspecified SNOMED: 99985015 (5) Hypernatremia ICD Codes: E87.0 - Hyperosmolality and hypernatremia SNOMED: 76537586 Assessment/Plan cont as is discussed with RN Ayan when hospice available Subjective Allergies: Coded Allergies: Potato (Unverified Allergy, Unknown, 12/26/16) Subjective In NAD Objective Last 24 Hour Vital Signs Date Time Temp Pulse Resp B/P (MAP) Pulse Ox O2 Delivery O2 Flow Rate FiO2 10/03/17 12:00 97.0 65 20 136/77 99 Room Air 97.0 10/03/17 08:00 97.2 66 20 124/89 100 Room Air 97.2 10/03/17 04:00 96.8 57 16 113/57 96 96.8 10/03/17 00:00 97.0 65 17 110/69 97 97.0 10/02/17 20:00 97.7 64 17 116/65 99 97.7 10/02/17 15:59 98.0 73 18 95/65 95 98.0 Intake and Output 10/02/17 10/03/17 19:00 07:00 Intake Total 240 ml Output Total 300 ml Balance 240 ml -300 ml Intake Oral 240 ml Output Urine Total 300 ml # Voids 4 Laboratory Tests 10/03/17 02:30: Urine Legionella Antigen [Pending] Height (Feet): 5 Height (Inches): 0.00 Weight (Pounds): 98 Cardiovascular: normal rate Respiratory/Chest: lungs clear Len Sanchez MD Oct 03, 2017 13:44
--- NOTE | 2017-10-03 14:31 | Neurology Progress Note ---
Interim History Interim History Interim History Ms. Maureen To looks about the same. She continues to be brighter. She makes eye contact. She gives me a social smile when I ask her how she feels in Lithuanian. She continues to be cognitively impoverished. She continues to be generally weak. There has been no significant improvement in her mental state. Review of Systems Neuro Review of Systems Unable to obtain. Objective Physical Exam Last Vital Signs Date Time Temp Pulse Resp B/P (MAP) Pulse Ox O2 Delivery O2 Flow Rate FiO2 10/03/17 12:00 97.0 65 20 136/77 99 Room Air 97.0 Laboratory Tests Test 10/03/17 02:30 Urine Legionella Antigen Pending Neurologic Exam Objective PHYSICAL EXAMINATION: GENERAL: She is a well-developed, well-nourished, lady lying in bed, in no acute distress. HEAD: Normocephalic and atraumatic. NECK: No neck rigidity was observed. EENT EXAMINATION: Benign except for strabismus. NEUROLOGICAL EXAMINATION: MENTAL STATUS EXAMINATION: She was awake and looked alert. She was unable to communicate in Lithuanian even with her family. She was unable to follow simple commands. SPEECH: She had a moderate dysarthria. LANGUAGE: She was unable to comprehend and express herself even in Lithuanian. CRANIAL NERVE EXAMINATION: II: She did blink to threat. She was unable to cooperate for confrontation testing. III, IV and : External ocular movements were restricted in both eyes and she had bilateral shifting inotropia. V: She had normal facial sensations and the temporales, masseters and pterygoids function normally. VII: She had right seventh central facial paresis. VIII: She seemed to be able to hear sounds and had no nystagmus. IX and X: The gag reflex was present. XI: The sternocleidomastoids and trapezii did function. XII: The tongue was in the midline without any fasciculations or atrophy. MOTOR SYSTEM: The tone was normal in all 4 extremities. Examination of muscle mass revealed no focal wasting. Examination of power was impossible to perform because of her inability to cooperate. 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 SENSORY EXAMINATION: She responded appropriately to deep pain. Other sensory modalities could not be tested. REFLEXES: 0 at the biceps, triceps, brachioradialis, knees, and ankles. Plantar responses were flexor bilaterally. COORDINATION, STANCE & GAIT: Could not be tested. Impression/Recommendations Diagnostic Impression 1. Ms. Taylor To is an 82-year-old, right handed, lady, who does have a past history of hypertension, diabetes mellitus, coronary artery disease, cerebrovascular disease with prior strokes and dementia, who was hospitalized on 09/26/17 for an alteration in mental state associated with fevers and elevated blood sugars. 2. She looks better and brighter. She continues to be cognitively impoverished. She continues to be generally weak. 3. On neurological examination, at this time, she does demonstrate generalized cerebral dysfunction of a moderately severe degree. 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 In addition, she seems to be aphasic and dysarthric. 4. Laboratory data on admission revealed elevated blood sugars as high as in the 500s a low albumin and abnormal LFTs. 5. The patient's history and neurological examination are most compatible with an acute encephalopathic process related to blood sugars out of control, superimposed on old structural brain disease due to cerebrovascular disease, and a primary degenerative dementia. 6. Her encephalopathy is improving however her underlying dementia is severe. Recommendations 1. Continue present management. 2. Better glycemic control. 3. Treatment of infectious processes as per Dr Coronado. CODI TROTTER M.D., M.S.P.H. CODI TROTTER Oct 03, 2017 14:31
[2017-10-03] MEDS: Atorvastatin 20mg tab ORAL SCH (23:03)
[2017-10-04] VITALS: BP 101/64
[2017-10-04 03:42] VITALS: BP 102/63
[2017-10-04] MEDS: NovoLOG Insulin Flexpen SUBQ SCH ×4 (06:27→21:32)
[2017-10-04 07:57] VITALS: BP 135/61
[2017-10-04] MEDS: Aspirin EC 81mg tab ORAL SCH (08:34)
[2017-10-04] MEDS: Heparin 5000 units/ml inj SUBQ SCH ×2 (08:45→21:33)
--- NOTE | 2017-10-04 09:56 | Infectious Diseases Prog Note ---
Assessment/Plan Assessment/Plan A: 1. pneumonia Mycoplasma & Legionella antibodies are positive 2. + blood cultures with Coagulase negative staph, contamination 3. diabetes mellitus with hyperglycemia 4. hypertension 5. dementia 6. Hypotension 7. DNR status P 1. continue Levaquin, 2. will Legionella antigen Subjective ROS Limited/Unobtainable: Yes Allergies: Coded Allergies: Potato (Unverified Allergy, Unknown, 12/26/16) Objective Vital Signs Last 24 Hour Vital Signs Date Time Temp Pulse Resp B/P (MAP) Pulse Ox O2 Delivery O2 Flow Rate FiO2 10/04/17 07:57 98.0 52 20 135/61 96 Room Air 98.0 10/04/17 03:42 98.2 64 18 102/63 95 Room Air 98.2 10/04/17 00:00 98.4 69 18 101/64 97 Room Air 98.4 10/03/17 20:00 97.2 74 18 129/62 98 Room Air 97.2 10/03/17 18:19 91 112/76 10/03/17 16:00 97.2 68 20 89/50 99 Room Air 97.2 10/03/17 12:00 97.0 65 20 136/77 99 Room Air 97.0 Height (Feet): 5 Height (Inches): 0.00 Weight (Pounds): 98 General Appearance: no acute distress HEENT: mucous membranes moist Respiratory/Chest: lungs clear Cardiovascular: normal rate Abdomen: soft, non tender Extremities: no edema Neurologic/Psychiatric: alert Current Medications Medications (Trade) Dose Ordered Sig/Ninfa Route PRN Reason Start Time Stop Time Status Last Admin Dose Admin Acetaminophen (Tylenol) 650 mg Q4H PRN ORAL Mild Pain (Pain Scale 1-3) 10/01/17 19:00 10/26/17 14:59 10/02/17 11:36 Aspirin (Ecotrin) 81 mg DAILY ORAL 10/02/17 09:00 10/26/17 15:59 10/04/17 08:34 Atorvastatin Calcium (Lipitor) 20 mg BEDTIME ORAL 10/01/17 21:00 10/26/17 20:59 10/03/17 23:03 Dextrose (Dextrose 50%) 25 ml STAT PRN IV Hypoglycemia 10/02/17 15:15 10/26/17 15:14 Dextrose (Dextrose 50%) 50 ml STAT PRN IV Hypoglycemia 10/02/17 15:15 10/26/17 15:14 Heparin Sodium (Porcine) (Heparin 5000 units/ml) 5,000 units EVERY 12 HOURS SUBQ 10/01/17 21:00 10/26/17 14:59 10/04/17 08:45 Insulin Aspart (NovoLOG) BEFORE MEALS AND HS SUBQ 10/01/17 21:00 10/26/17 16:29 10/04/17 06:27 Levofloxacin (Levaquin) 750 mg Q48H ORAL 10/02/17 18:00 10/05/17 17:59 10/02/17 18:30 Pantoprazole (Protonix) 40 mg DAILY ORAL 10/02/17 09:00 10/26/17 15:59 10/04/17 08:34 Jasiel Sanchez MD Oct 04, 2017 09:56
[2017-10-04 12:16] VITALS: BP 103/43
--- NOTE | 2017-10-04 14:37 | Neurology Progress Note ---
Interim History Interim History Interim History Ms. Maureen To looks brighter. She is awake and alert. She makes eye contact with one eye or the other. She gives me a social smile when I ask her how she feels in Amharic. She continues to be cognitively impoverished. She continues to be generally weak. There has been no significant improvement in her mental state. Review of Systems Neuro Review of Systems Unable to obtain. Objective Physical Exam Last Vital Signs Date Time Temp Pulse Resp B/P (MAP) Pulse Ox O2 Delivery O2 Flow Rate FiO2 10/04/17 12:16 97.3 60 16 103/43 99 Room Air 97.3 Neurologic Exam Objective PHYSICAL EXAMINATION: GENERAL: She is a well-developed, well-nourished, lady lying in bed, in no acute distress. HEAD: Normocephalic and atraumatic. NECK: No neck rigidity was observed. EENT EXAMINATION: Benign except for strabismus. NEUROLOGICAL EXAMINATION: MENTAL STATUS EXAMINATION: She was awake and alert. She was unable to communicate in Amharic even with her family. She was unable to follow simple commands. SPEECH: She had a moderate dysarthria. LANGUAGE: She was unable to comprehend and express herself even in Amharic. CRANIAL NERVE EXAMINATION: II: She did blink to threat. She was unable to cooperate for confrontation testing. III, IV and : External ocular movements were restricted in both eyes and she had bilateral shifting inotropia. V: She had normal facial sensations and the temporales, masseters and pterygoids functioned normally. VII: She had a right seventh central facial paresis. VIII: She seemed to be able to hear sounds and had no nystagmus. IX & X: The gag reflex was present. XI: The sternocleidomastoids and trapezii did function. XII: The tongue was in the midline without any fasciculations or atrophy. MOTOR SYSTEM: The tone was normal in all 4 extremities. Examination of muscle mass revealed no focal wasting. Examination of power was impossible to perform because of her inability to cooperate. 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 SENSORY EXAMINATION: She responded appropriately to deep pain. Other sensory modalities could not be tested. REFLEXES: 0 at the biceps, triceps, brachioradialis, knees, and ankles. Plantar responses were flexor bilaterally. COORDINATION, STANCE & GAIT: Could not be tested. Impression/Recommendations Diagnostic Impression 1. Ms. Taylor To is an 82-year-old, right handed, lady, who does have a past history of hypertension, diabetes mellitus, coronary artery disease, cerebrovascular disease with prior strokes and dementia, who was hospitalized on 09/26/17 for an alteration in mental state associated with fevers and elevated blood sugars. 2. She looks brighter. She is awake and alert. She makes eye contact with one eye or the other. She gives me a social smile when I ask her how she feels in Amharic. She continues to be cognitively impoverished. She continues to be generally weak. There has been no significant improvement in her mental state. 3. On neurological examination, at this time, she does demonstrate generalized cerebral dysfunction of a moderately severe degree. 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 In addition, she is aphasic and dysarthric. 4. Laboratory data on admission revealed elevated blood sugars as high as in the 500s a low albumin and abnormal LFTs. 5. The patient's history and neurological examination are most compatible with an acute encephalopathic process related to blood sugars out of control, superimposed on old structural brain disease due to cerebrovascular disease, and a primary degenerative dementia. 6. Her encephalopathy is improving however her underlying dementia is severe. Recommendations 1. Continue present management. 2. Better glycemic control. 3. Treatment of infectious processes as per Dr Coronado. CODI TROTTER M.D., M.S.P.H. CODI TROTTER Oct 04, 2017 14:37
[2017-10-04 16:00] VITALS: BP 109/66
--- NOTE | 2017-10-04 18:46 | General Progress Note ---
Assessment/Plan Problem List: (1) Altered mental status ICD Codes: R41.82 - Altered mental status, unspecified SNOMED: 395965648 (2) Pneumonia ICD Codes: J18.9 - Pneumonia, unspecified organism SNOMED: 614953273 (3) Diabetes mellitus ICD Codes: E11.9 - Type 2 diabetes mellitus without complications SNOMED: 33951100 (4) Alzheimer's dementia ICD Codes: G30.9 - Alzheimer's disease, unspecified SNOMED: 97454381 (5) Hypernatremia ICD Codes: E87.0 - Hyperosmolality and hypernatremia SNOMED: 85378001 Assessment/Plan cont as is discussed with RN Ayan when hospice available Subjective Allergies: Coded Allergies: Potato (Unverified Allergy, Unknown, 12/26/16) Subjective In NAD Objective Last 24 Hour Vital Signs Date Time Temp Pulse Resp B/P (MAP) Pulse Ox O2 Delivery O2 Flow Rate FiO2 10/04/17 16:00 97.7 66 18 109/66 97 Room Air 97.7 10/04/17 12:16 97.3 60 16 103/43 99 Room Air 97.3 10/04/17 07:57 98.0 52 20 135/61 96 Room Air 98.0 10/04/17 03:42 98.2 64 18 102/63 95 Room Air 98.2 10/04/17 00:00 98.4 69 18 101/64 97 Room Air 98.4 10/03/17 20:00 97.2 74 18 129/62 98 Room Air 97.2 Intake and Output 10/03/17 10/04/17 19:00 07:00 Intake Total 140 ml 100 ml Output Total 500 ml 500 ml Balance -360 ml -400 ml Intake Oral 140 ml 100 ml Output Urine Total 500 ml 500 ml Height (Feet): 5 Height (Inches): 0.00 Weight (Pounds): 98 Cardiovascular: normal rate Respiratory/Chest: lungs clear Len Sanchez MD Oct 04, 2017 18:46
[2017-10-04 19:55] VITALS: BP 91/64
[2017-10-04] MEDS: Atorvastatin 20mg tab ORAL SCH (21:20)
[2017-10-05] VITALS: BP 101/61
[2017-10-05 04:00] VITALS: BP 110/71
[2017-10-05] MEDS: NovoLOG Insulin Flexpen SUBQ SCH ×2 (06:33→12:08)
[2017-10-05 08:00] VITALS: BP 111/62
[2017-10-05] MEDS: Aspirin EC 81mg tab ORAL SCH (08:25)
[2017-10-05] MEDS: Heparin 5000 units/ml inj SUBQ SCH (08:27)
--- NOTE | 2017-10-05 10:57 | Neurology Progress Note ---
Interim History Interim History Interim History Ms. Maureen To continues to be brighter. She is awake and alert. She makes eye contact with one eye or the other. She gives me a social smile when I ask her how she feels in Ukrainian. She continues to be cognitively impoverished. She continues to be generally weak. There has been no significant improvement in her mental state. Review of Systems Neuro Review of Systems Unable to obtain. Objective Physical Exam Last Vital Signs Date Time Temp Pulse Resp B/P (MAP) Pulse Ox O2 Delivery O2 Flow Rate FiO2 10/05/17 08:00 97.5 77 19 111/62 97 97.5 10/05/17 04:00 Room Air Neurologic Exam Objective PHYSICAL EXAMINATION: GENERAL: She is a well-developed, well-nourished, lady lying in bed, in no acute distress. HEAD: Normocephalic and atraumatic. NECK: No neck rigidity was observed. EENT EXAMINATION: Benign except for strabismus. NEUROLOGICAL EXAMINATION: MENTAL STATUS EXAMINATION: She was awake and alert. She was unable to communicate in Ukrainian. She was unable to follow simple commands. SPEECH: She had a moderate dysarthria. LANGUAGE: She was unable to comprehend and express herself even in Ukrainian. CRANIAL NERVE EXAMINATION: II: She did blink to threat. She was unable to cooperate for confrontation testing. III, IV and : External ocular movements were restricted in both eyes and she had bilateral shifting inotropia. V: She had normal facial sensations and the temporales, masseters and pterygoids functioned normally. VII: She had a right seventh central facial paresis. VIII: She seemed to be able to hear sounds and had no nystagmus. IX & X: The gag reflex was present. XI: The sternocleidomastoids and trapezii did function. XII: The tongue was in the midline without any fasciculations or atrophy. MOTOR SYSTEM: The tone was normal in all 4 extremities. Examination of muscle mass revealed no focal wasting. Examination of power was impossible to perform because of her inability to cooperate. 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 SENSORY EXAMINATION: She responded appropriately to deep pain. Other sensory modalities could not be tested. REFLEXES: 0 at the biceps, triceps, brachioradialis, knees, and ankles. Plantar responses were flexor bilaterally. COORDINATION, STANCE & GAIT: Could not be tested. Impression/Recommendations Diagnostic Impression 1. Ms. Taylor To is an 82-year-old, right handed, lady, who does have a past history of hypertension, diabetes mellitus, coronary artery disease, cerebrovascular disease with prior strokes and dementia, who was hospitalized on 09/26/17 for an alteration in mental state associated with fevers and elevated blood sugars. 2. She is brighter. She is awake and alert. She makes eye contact with one eye or the other. She gives me a social smile when I ask her how she feels in Ukrainian. She continues to be cognitively impoverished. She continues to be generally weak. There has been no significant improvement in her mental state. 3. On neurological examination, at this time, she does demonstrate generalized cerebral dysfunction of a moderately severe degree. 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 In addition, she is aphasic and dysarthric. 4. Laboratory data on admission revealed elevated blood sugars as high as in the 500s a low albumin and abnormal LFTs. 5. The patient's history and neurological examination are most compatible with an acute encephalopathic process related to blood sugars out of control, superimposed on old structural brain disease due to cerebrovascular disease, and a primary degenerative dementia. 6. Her encephalopathy is improving however her underlying dementia is severe. Recommendations 1. Continue present management. 2. Better glycemic control. 3. Treatment of infectious processes as per Dr Coronado. CODI TROTTER M.D., M.S.P.CODI ESPINAL Oct 05, 2017 10:57
--- NOTE | 2017-10-05 11:50 | General Progress Note ---
Assessment/Plan Problem List: (1) Altered mental status ICD Codes: R41.82 - Altered mental status, unspecified SNOMED: 130815475 (2) Pneumonia ICD Codes: J18.9 - Pneumonia, unspecified organism SNOMED: 434484232 (3) Diabetes mellitus ICD Codes: E11.9 - Type 2 diabetes mellitus without complications SNOMED: 37249613 (4) Alzheimer's dementia ICD Codes: G30.9 - Alzheimer's disease, unspecified SNOMED: 67481943 (5) Hypernatremia ICD Codes: E87.0 - Hyperosmolality and hypernatremia SNOMED: 26023108 Assessment/Plan cont as is discussed with RN Ayan when hospice available Subjective Allergies: Coded Allergies: Potato (Unverified Allergy, Unknown, 12/26/16) Subjective In NAD Objective Last 24 Hour Vital Signs Date Time Temp Pulse Resp B/P (MAP) Pulse Ox O2 Delivery O2 Flow Rate FiO2 10/05/17 08:00 97.5 77 19 111/62 97 97.5 10/05/17 04:00 97.5 68 17 110/71 99 Room Air 97.5 10/05/17 00:00 97.2 81 20 101/61 98 Room Air 97.2 10/04/17 19:55 97.7 79 16 91/64 98 Room Air 97.7 10/04/17 16:00 97.7 66 18 109/66 97 Room Air 97.7 10/04/17 12:16 97.3 60 16 103/43 99 Room Air 97.3 Intake and Output 10/04/17 10/05/17 19:00 07:00 Intake Total 250 ml Output Total 150 ml 500 ml Balance 100 ml -500 ml Intake Oral 250 ml Output Urine Total 150 ml 500 ml # Bowel Movements 1 Height (Feet): 5 Height (Inches): 0.00 Weight (Pounds): 98 Cardiovascular: normal rate Respiratory/Chest: lungs clear Edema: no edema noted Generalized Len Sanchez MD Oct 05, 2017 11:50
[2017-10-05 12:00] VITALS: BP_SYST 105; BP_SYST 108; BP_DIAS 67
--- NOTE | 2017-10-05 12:31 | Infectious Diseases Prog Note ---
Assessment/Plan Assessment/Plan A: 1. pneumonia Mycoplasma & Legionella antibodies are positive 2. + blood cultures with Coagulase negative staph, contamination 3. diabetes mellitus with hyperglycemia 4. hypertension 5. dementia 6. Hypotension 7. DNR status P 1. continue Levaquin, 2. will follow up urine Legionella antigen Subjective ROS Limited/Unobtainable: Yes Allergies: Coded Allergies: Potato (Unverified Allergy, Unknown, 12/26/16) Objective Vital Signs Last 24 Hour Vital Signs Date Time Temp Pulse Resp B/P (MAP) Pulse Ox O2 Delivery O2 Flow Rate FiO2 10/05/17 08:00 97.5 77 19 111/62 97 97.5 10/05/17 04:00 97.5 68 17 110/71 99 Room Air 97.5 10/05/17 00:00 97.2 81 20 101/61 98 Room Air 97.2 10/04/17 19:55 97.7 79 16 91/64 98 Room Air 97.7 10/04/17 16:00 97.7 66 18 109/66 97 Room Air 97.7 Height (Feet): 5 Height (Inches): 0.00 Weight (Pounds): 98 General Appearance: no acute distress HEENT: mucous membranes moist Respiratory/Chest: lungs clear Cardiovascular: normal rate Abdomen: soft, non tender Extremities: no edema Neurologic/Psychiatric: alert, disoriented Current Medications Medications (Trade) Dose Ordered Sig/Ninfa Route PRN Reason Start Time Stop Time Status Last Admin Dose Admin Acetaminophen (Tylenol) 650 mg Q4H PRN ORAL Mild Pain (Pain Scale 1-3) 10/01/17 19:00 10/26/17 14:59 10/02/17 11:36 Aspirin (Ecotrin) 81 mg DAILY ORAL 10/02/17 09:00 10/26/17 15:59 10/05/17 08:25 Atorvastatin Calcium (Lipitor) 20 mg BEDTIME ORAL 10/01/17 21:00 10/26/17 20:59 10/04/17 21:20 Dextrose (Dextrose 50%) 25 ml STAT PRN IV Hypoglycemia 10/02/17 15:15 10/26/17 15:14 Dextrose (Dextrose 50%) 50 ml STAT PRN IV Hypoglycemia 10/02/17 15:15 10/26/17 15:14 Heparin Sodium (Porcine) (Heparin 5000 units/ml) 5,000 units EVERY 12 HOURS SUBQ 10/01/17 21:00 10/26/17 14:59 10/05/17 08:27 Insulin Aspart (NovoLOG) BEFORE MEALS AND HS SUBQ 10/01/17 21:00 10/26/17 16:29 10/05/17 12:08 Levofloxacin (Levaquin) 750 mg Q48H ORAL 10/02/17 18:00 10/05/17 17:59 10/04/17 16:59 Pantoprazole (Protonix) 40 mg DAILY ORAL 10/02/17 09:00 10/26/17 15:59 10/05/17 08:25 Jasiel Sanchez MD Oct 05, 2017 12:31
--- NOTE | 2017-10-06 11:42 | Discharge Summary ---
Discharge Summary Discharge Summary _ DATE OF ADMISSION: 09/26/2017 DATE OF DISCHARGE: 10/05/2017 REASON FOR ADMISSION: 82 years old female with past medical history significant for hypertension, diabetes ,hyperlipidemia, Alzheimer dementia, CVA ,presented to emergency department for evaluation with altered mental status. Upon evaluation patient was febrile ,tachycardic ,blood pressure was on the low side. Chest x-ray revealed evidence of infiltrate at the right upper lobe. Urinalysis was negative for evidence of UTI No leukocytosis. Sodium 149. BUN 88. Creatinine 1.3. Troponin negative. Glucose 338. Patient apparently with DNR/DNI status, but upon presentation to ED no [id number] were presented to confirm DNR status. Patient admitted with diagnosis off acute encephalopathy, probable sepsis, pneumonia, Alzheimer dementia, acute renal failure, hypernatremia, diabetes mellitus CONSULTANTS: neurologist Dr. Maxim PENA specialist Dr. Jasiel Sanchez surgery Dr. Davis [facility]: Patient admitted. Patient started on on IV hydration with dextrose. Renal parameters and electrolytes were closely monitored. Electrolytes were corrected as needed. Nephrotoxins were avoided. Acute renal failure was likely due to dehydration and hyponatremia was due to the free water deficit. Prior to discharge sodium down to 143. BUN down to 29 from initial 88 and creatinine down to 0.7 from initial 1.3. Infectious disease specialist followed. Chest x-ray revealed evidence of right upper lobe infiltrate. Patient was on antibiotics as per ID recommendations. Noted positive titers of Legionella and Mycoplasma pneumonia. Legionella antigen still pending. Bedside swallow evaluation revealed moderate dysphagia with aspiration risk. Speech therapist recommended video swallow evaluation. However, given that the patient was on the hospice services prior to admission and on comfort care, recommended diet for [id number] with strict aspiration/reflux precautions and one-to-one feeding. Blood culture revealed Staph hominis 2/4, likely contaminated as per ID conclusion. Patient had present on admission sacral decubitus stage III as well as the bilateral trochanter ulcers. Surgeon closely followed. According to surgeon all wounds showed no signs of active infection. Wound care was provided as per surgeon recommendation. No surgical intervention was necessary at this time. HIV test was negative . Hepatitis panel was negative Neurologist closely follow. Per Neurologist , patient's history and neurological examination were most compatible with acute encephalopathy related to blood sugar out of control, superimposed on old structural brain disease due to cerebrovascular disease and a primary degenerative dementia. Encephalopathy was improving with the treatment, however her underlying dementia was severe. Neurologist recommended continue present management and improve blood sugar control, as well as the treatment of infectious disease and per infectious disease specialist Blood sugar was managed with sliding scale of insulin. Hemoglobin A1c- 8.3, not at goal. Recommended further optimization of anti-glycemic regimen as outpatient. Blood pressure was closely monitored. Blood pressure remained on the low side but stable ; no need for antihypertensive medications on this admission. Patient was continued on aspirin and statin. DVT and GI prophylaxis provided. Bowel regimen instituted. Pain management was addressed Supportive care provided Patient was stabilized and ready for discharge home with hospice services to follow FINAL DIAGNOSES: Acute encephalopathy Pneumonia with Mycoplasma and Legionella antibody positive Alzheimer dementia Acute renal failure, improved ( prerenal, probably due to dehydration) Hyponatremia, resolved Diabetes mellitus type 2 with hyperglycemia Alzheimer dementia Hypotension with history of hypertension Sacral decubitus stage III , present on admission Bilateral trochanter ulcers, present on admission DISCHARGE MEDICATIONS: See Medication Reconciliation list. DISCHARGE INSTRUCTIONS: Patient was discharged home with hospice services I have been assigned to dictate discharge summary for this account. I was not involved in the patient's management. Jill Cobb NP Oct 06, 2017 11:42
== END 2017-10-05 16:30 | DRG 139 ==
LOC: EDBD 11:02 → EMR 11:40 → 2E 12:31 → EDBEDREQ 13:10 → 4W 10-01 19:00
DX: J18.9 Pneumonia, unspecified organism (principal); G93.40 Encephalopathy, unspecified; N17.9 Acute kidney failure, unspecified; L89.219 Pressure ulcer of right hip, unspecified stage; G82.50 Quadriplegia, unspecified; L89.229 Pressure ulcer of left hip, unspecified stage; E87.0 Hyperosmolality and hypernatremia; L89.153 Pressure ulcer of sacral region, stage 3; I69.351 Hemiplegia and hemiparesis following cerebral infarction affecting right dominant side; E86.0 Dehydration; G30.9 Alzheimer's disease, unspecified; F02.80 Dementia in other diseases classified elsewhere, unspecified severity, without behavioral disturbance, psychotic disturbance, mood disturbance, and anxiety; I95.9 Hypotension, unspecified; I10 Essential (primary) hypertension; E78.5 Hyperlipidemia, unspecified; Z79.4 Long term (current) use of insulin; I69.320 Aphasia following cerebral infarction; Z66 Do not resuscitate; I25.10 Atherosclerotic heart disease of native coronary artery without angina pectoris; E11.65 Type 2 diabetes mellitus with hyperglycemia
CPT/HCPCS: 36415; 36600; 71045; 76700; 80048; 80053; 81003; 82164; 82550; 82553; 82803; 82947; 82962; 83036; 83605; 83735; 84100; 84484; 85025; 86703; 86705; 86709; 86713; 86738; 86803; 86850; 86900; 86901; 87040; 87070; 87181; 87205; 87340; 87517; 93005; 99285; J1815